=== PATIENT | female | born 1935 | race Hispanic/Latino ===

== ENCOUNTER 2016-10-02 10:52 | Inpatient (IN) | payer OTHER ==
[~2016-10-02] VITALS: Ht 157.5 cm; Wt 104.0 kg
[~2016-10-02 10:52] MED LIST: AMITRIPTYLINE10 MG PO; DIOVAN320 MG PO; DOCUSATE SODIU100 M2 ORAL; DONEPEZIL HCL5 MG ORAL; HYDROCHLOROTHIA25 MG ORAL; LEVOTHYROXINE75 MCG ORAL; LORATADINE10 M1 PO; METOPROLOL SUCC50 MG ORAL; NAPROXEN250 MG PO; NEURONTIN300 MG PO; NORCO1 EA ORAL; NOVOLOG100 UNIT/3 SUBQ; NOVOLOG100 UNIT/4 SQ; NOVOLOG100 UNIT/5; OMEPRAZOLE20 M2 ORAL; PRAVASTATIN SOD20 M1 ORAL; QUETIAPINE FUM100 MG ORAL; RANITIDINE HCL150 MG PO; SERTRALINE HCL50 MG ORAL; SYNTHROID25 MCG PO; TRAZODONE HCL150 MG ORAL; XOPENEX0.63 MG/3 IH; XOPENEX1.25 MG/3 HHN
--- NOTE | 2016-10-02 11:55 | Diagnostic Imaging Report ---
Indication: Dyspnea Comparison: 05/13/15 A single view chest radiograph was obtained. Findings: There is enlargement of the cardiac silhouette with pulmonary vascular redistribution and prominence, hazy vessel margins and the suggestion of interstitial edema consistent with CHF. There is no interval change. Bones are osteopenic. Impression: Congestive heart failure.
--- NOTE | 2016-10-02 12:19 | Diagnostic Imaging Report ---
Indication: Postop. Altered mental status Technique: Contiguous 5 mm thick transaxial imaging of the head obtained in a Siemens Sensation [address] scanner. Soft tissue and bone windows generated. Total Dose length Product (DLP): [address] Dose Index Volume (CTDIvol): 70.38 mGy Comparison: 05/13/15 Findings: There is moderate prominence of the ventricles, basal cisterns, and cerebral sulci consistent with atrophy. Moderate, nonspecific, white matter hypoattenuation is noted throughout the brain consistent with chronic small vessel disease. There is no midline shift, edema, acute hemorrhage, mass effect, or abnormal extra-axial fluid collections. Bones and extra osseous soft tissues are unremarkable. Impression: No acute intracranial bleed, mass effect or edema. Moderate atrophy of the brain. Evidence of chronic small vessel disease involving white matter tracts. Critical value communication. Findings were discussed via telephone with Dr. Billings in the emergency department at 12:12, 10/02/[address] scanner at [facility] is accredited by the [employer] and the scans are performed using protocols designed to limit radiation exposure to as low as reasonably achievable to attain images of sufficient resolution adequate for diagnostic evaluation.
[2016-10-02 12:47] LABS: TROPONIN I < 0.30 ng/mL (<=0.30)
[2016-10-02 12:50] LABS: ALANINE AMINOTRANSFERASE 10 U/L (3-33); ALBUMIN/GLOBULIN RATIO 1.1 (1.0-2.7); ANION GAP 19 (5-15); ASPARTATE AMINO TRANSFERASE 20 U/L (5-40); CALCIUM 9.7 mg/dL (8.6-10.2); CARBON DIOXIDE 27 mEQ/L (20-30); CHLORIDE 85 mEQ/L (98-107); CREATININE 1.5 mg/dL (0.5-0.9); HEMOLYSIS 33; LIPASE 14 U/L (< 60); POTASSIUM 3.8 mEQ/L (3.4-4.9); SODIUM 131 mEQ/L (135-145); TOTAL PROTEIN 7.3 g/dL (6.6-8.7)
[2016-10-02 12:57] LABS: MEAN CORPUSCULAR HEMOGLOBIN 30.6 PG (27.0-31.0); MEAN CORPUSCULAR HGB CONC 33.4 G/DL (32.0-36.0); MEAN CORPUSCULAR VOLUME 92 FL (80-99); MEAN PLATELET VOLUME 7.6 FL (6.5-10.1); PLATELET COUNT 195 K/UL (150-450); RED BLOOD COUNT 4.78 M/UL (4.20-5.40); RED CELL DISTRIBUTION WIDTH 11.5 % (11.6-14.8); WHITE BLOOD COUNT 18.7 K/UL (4.8-10.8)
[2016-10-02 12:58] VITALS: BP 109/45
[2016-10-02 12:58] LABS: APPEARANCE,URINE SLIGHTLY CLOUDY; KETONES,URINE NEGATIVE (NEGATIVE); LEUKOCYTE ESTERASE ,URINE 1+ (NEGATIVE); NITRITE,URINE NEGATIVE (NEGATIVE); PH,URINE 5 (4.5-8.0); PROTEIN,URINE 1+ (NEGATIVE); UROBILINOGEN,URINE NORMAL MG/DL (0.0-1.0)
[2016-10-02 13:00] LABS: CKMB 2.6 ng/mL (< 3.8)
[2016-10-02] MEDS ORDERED: cefTRIAXone 1 GM in NS 55 ML IVPB ONE (13:15)
[2016-10-02] MEDS ORDERED: Azithromycin 500 MG in NS 275 ML IV ONE (13:15)
--- NOTE | 2016-10-02 13:18 | Emergency Room Report ---
History of Present Illness General Chief Complaint: Generalized Weakness Source: Patient, Family Member, EMS Present Illness HPI 81 YOF BIBEMS for weakness and low blood pressure. Per daughter, went to home to feed parents, mother slow to get out of bed. Checked blood sugar, was normal. But bilateral arm BP was SBP 70-75. EMS confirmed low BP, but improved en route to normotension. No recent fever/chills, chest pain, SOB, abd pain, cough, urinary complaints. PMHx with DM, HTN. Allergies: Coded Allergies: No Known Allergies (Verified , 05/26/11) Patient History Past Medical History: DM, HTN Past Surgical History: none Pertinent Family History: none Social History: Denies: alcohol use, drug use, smoking Now: No Immunizations: UTD Reviewed Nursing Documentation: PMH: Agreed, PSxH: Agreed Nursing Documentation-PMH Past Medical History: No History, Except For Hx Cardiac Problems: Yes - cholesterol Hx Hypertension: Yes Hx COPD: Yes Hx Diabetes: Yes Hx Neurological Problems: Yes - mild dementia Review of Systems All Other Systems: negative except mentioned in HPI Physical Exam Vital Signs Date Time Temp Pulse Resp B/P Pulse Ox O2 Delivery O2 Flow Rate FiO2 10/02/16 10:47 99.1 75 18 110/58 98 Room Air 10/02/16 12:58 2.0 Sp02 EP Interpretation: reviewed, normal General Appearance: normal inspection, well appearing, no apparent distress, alert, GCS 15, non-toxic, obese Head: normocephalic, atraumatic Eyes: bilateral eye EOMI, bilateral eye PERRL ENT: normal ENT inspection, hearing grossly normal, normal voice Neck: normal inspection, full range of motion, supple, no bony tend Respiratory: normal inspection, lungs clear, normal breath sounds, no rhonchi, no respiratory distress, no retraction, no accessory muscle use, no wheezing, crackles, speaking full sentences Cardiovascular #1: regular rate, rhythm, no edema Gastrointestinal: normal inspection, normal bowel sounds, non tender, soft, no guarding, no hernia Genitourinary: no CVA tenderness Musculoskeletal: normal inspection, back normal, normal range of motion, Leah' s Sign negative Neurologic: normal inspection, alert, oriented x3, responsive, paying teller III-XII nml as tested, motor strength/tone normal, speech normal Psychiatric: normal inspection, judgement/insight normal, mood/affect normal Skin: normal inspection, normal color, no rash Medical Decision Making Medicare Attestation Franci Araiza MD hereby attest that the medical record entry for date of service, 06/17/16 accurately reflects signatures/notations that I made in my capacity as MD when I treated/diagnosed the above listed Medicare beneficiary. I attest that this information is true, accurate and complete to the best of my knowledge. I understand that any falsification, omission, or concealment of material fact may subject me to administrative, civil, or criminal liability. This patient warrants hospital admission for extreme of age and has a condition that cannot be treated as outpatient. Diagnostic Impression: Primary Impression: Episode of generalized weakness Additional Impressions: CHF (congestive heart failure) Qualified Codes: I50.9 - Heart failure, unspecified Pneumonia Qualified Codes: J18.9 - Pneumonia, unspecified organism Opiate overdose Qualified Codes: T40.601A - Poisoning by unspecified narcotics, accidental ( unintentional), initial encounter ER Course Labs: ERIN. Leuks 18k. Troponin 0. CXR with bilateral pulm congestion vs PNA No history of CHF No acute respiratory distress. Utox positive for opiates. Family now endorses patient on hospice. Hypotension , episode of AMS this morning likely related to possible accidental opiate overdose. CHF - Given IV lasix ?PNA - Cef/azithro given - Blood Cx pending Endorsed to Dr Martinez for tele admission at 117pm EKG Diagnostic Results Rate: normal Rhythm: NSR ST Segments: no acute changes ASA given to the pt in ED: No Rhythm Strip Diag. Results EP Interpretation: yes Rate: 74 Rhythm: NSR, no PVC's, no ectopy Chest X-Ray Diagnostic Results EP Interpretation: Yes Findings: no pneumothorax, other - Pulm congestion vs infiltrate bilaterally Number of Views: 1 Last Vital Signs Date Time Temp Pulse Resp B/P Pulse Ox O2 Delivery O2 Flow Rate FiO2 10/02/16 12:58 72 13 109/45 96 Nasal Cannula 2.0 10/02/16 10:47 99.1 Status: improved Disposition: ADMITTED INPATIENT Condition: Serious Referrals: [facility],REFERRING (PCP) FRANCI ARAIZA M.D. Oct 02, 2016 13:18
[2016-10-02 13:22] LABS: BACTERIA,URINE FEW /HPF; SQUAMOUS EPITHELIAL CELL,UR FEW /LPF (NONE/OCC)
[2016-10-02 13:39] LABS: BAND NEUTROPHILS % (MANUAL) 3 % (0-8); BASOPHILS % (MANUAL) 0 % (0-2); EOSINOPHILS % (MANUAL) 0 % (0-3); LYMPHOCYTES % (MANUAL) 6 % (20-45); NEUTROPHILS % (MANUAL) 84 % (45-75); PLATELET ESTIMATE ADEQUATE; PLATELET MORPHOLOGY NORMAL; TOTAL CELLS COUNTED 100
[2016-10-02] MEDS ORDERED: ACETAMINOPHEN325 M3 PO (14:06)
[2016-10-02] MEDS ORDERED: SENNA LAX8.6 MG PO (14:06)
[2016-10-02] MEDS ORDERED: ASPIRIN81 MG ORAL (14:07)
[2016-10-02] MEDS ORDERED: ASPIR 8181 MG ORAL (14:07)
[2016-10-02 14:09] VITALS: BP 105/50
[2016-10-02] MEDS ORDERED: NAMENDA5 MG ORAL (14:31)
[2016-10-02] MEDS ORDERED: Azithromycin Inj IV ONE (14:34)
[2016-10-02] MEDS ORDERED: GLIPIZIDE5 MG ORAL (14:36)
[2016-10-02] MEDS ORDERED: LANTUS SOL100 UNIT/1 SUBQ (14:40)
[2016-10-02] MEDS ORDERED: HYOSCYAMINE0.125 MG PO (14:43)
[2016-10-02] MEDS ORDERED: DULCOLAX10 MG RC (14:45)
[2016-10-02] MEDS ORDERED: ACETAMINOPHEN120 MG RECTAL (14:48)
[2016-10-02] MEDS ORDERED: DONEPEZIL HCL10 MG ORAL (14:57)
[2016-10-02] MEDS ORDERED: TRAZODONE HCL100 MG ORAL (14:57)
[2016-10-02] MEDS ORDERED: FAMOTIDINE20 MG ORAL (15:08)
[2016-10-02] MEDS ORDERED: ATORVASTATIN CA40 MG ORAL (15:13)
[2016-10-02] MEDS ORDERED: VITAMIN D1000 UNI1 ORAL (15:14)
[2016-10-02 15:30] VITALS: BP 94/51
[2016-10-02 15:57] VITALS: BP 103/62
[2016-10-02] MEDS ORDERED: Miralax 17gm pkt ORAL PRN (16:00)
[2016-10-02] MEDS ORDERED: Mylanta II UD 30ml ORAL PRN (16:00)
[2016-10-02] MEDS ORDERED: DuoNeb 0.5-3(2.5)mg/3ml neb HHN PRN (16:00)
[2016-10-02] MEDS ORDERED: Nitroglycerin Subl 0.4mg tab (Bottle Of 25) SL PRN (16:00)
[2016-10-02] MEDS ORDERED: Promethazine/Codeine 5ml UD ORAL PRN (16:00)
[2016-10-02 17:17] VITALS: BP 150/91
[2016-10-02] MEDS: NovoLOG Insulin Flexpen SUBQ SCH ×2 (17:59→21:00)
[2016-10-02] MEDS ORDERED: Vancomycin 1250mg/D5W 275ml IVPB ONE ×2 (18:00)
[2016-10-02 20:00] VITALS: BP 120/67
[2016-10-02] MEDS: Cefepime HCl 1 GM in D5W 55 ML IV SCH (22:16)
[2016-10-02] MEDS: Heparin 5000 units/ml inj SUBQ SCH (22:17)
--- NOTE | 2016-10-02 22:49 | History and Physical ---
History of Present Illness General Date patient seen: Oct 02, 2016 Reason for Hospitalization: Generalized Weakness Present Illness HPI 81 year old female with PMHx of DM, HTN brought in by paramedics for weakness and low blood pressure. She slow to get out of bed and her But bilateral arm BP was SBP 70-75. EMS confirmed low BP, but improved en route to normotension. Pt has episodes of cough and thinks that she had yellow phlegm. Allergies: Coded Allergies: No Known Allergies (Verified , 05/26/11) Medication History Scheduled Aspirin* (Aspir 81*), 81 MG ORAL DAILY, (Reported) Atorvastatin Calcium* (Atorvastatin Calcium*), 40 MG ORAL BEDTIME, (Reported) Cholecalciferol (Vitamin D3)* (Vitamin D*), 1,000 UNIT ORAL DAILY, (Reported) Docusate Sodium (Docusate Sodium), 100 MG ORAL TWICE A DAY, (Reported) Donepezil Hcl* (Donepezil Hcl*), 10 MG ORAL QHS, (Reported) Famotidine (Famotidine), 20 MG ORAL TWICE A DAY, (Reported) Gabapentin (Neurontin), 300 MG PO QHS, (Reported) Glipizide* (Glipizide*), 2.5 MG ORAL BIDAC, (Reported) Hydrochlorothiazide* (Hydrochlorothiazide*), 25 MG ORAL DAILY, (Reported) Insulin Glargine (Lantus), 40 UNITS SUBQ BEFORE BREAKFAST, (Reported) Levothyroxine Sodium* (Levothyroxine Sodium*), 75 MCG ORAL DAILY, (Reported) Memantine Hcl* (Namenda*), 5 MG ORAL DAILY, (Reported) Metoprolol Succinate* (Metoprolol Succinate*), 50 MG ORAL DAILY, (Reported) Sennosides (Senna Lax), 8.6 MG PO BID, (Reported) Sertraline Hcl* (Zoloft*), 150 MG ORAL DAILY, (Reported) Valsartan (Diovan), 160 MG PO DAILY, (Reported) Scheduled PRN Acetaminophen (Acetaminophen), 325 MG PO BID PRN for For Headache, (Reported) Acetaminophen* (Tylenol*), 650 MG RECTAL Q4H PRN for FEVER/TEMP>100F, (Reported) Bisacodyl (Dulcolax), 10 MG RC Q72H PRN for IF NO BOWEL MOVEMENT, (Reported) Hyoscyamine Sulfate (Hyoscyamine Sulfate), 0.125 MG PO Q4HR PRN for EXCESSIVE SECRETIONS, (Reported) Discontinued Medications Amitriptyline Hcl* (Elavil*), 10 MG PO QHS, (Reported) Discontinued Reason: Therapy completed Donepezil Hcl* (Donepezil Hcl*), 5 MG ORAL HS, (Reported) Discontinued Reason: Prescription changed Hydrocodone/Acetaminophen 5-325* ([place] 5-325*), 0.5 TAB ORAL Q6H PRN for For Pain Discontinued Reason: Therapy completed Insulin Aspart (Novolog), 65 UNIT SQ DAILY, (Reported) Discontinued Reason: Pt stopped taking med Insulin Aspart (Novolog), 40 HS, (Reported) Discontinued Reason: Pt stopped taking med Insulin Aspart* (Novolog*), 0 SUBQ AC, (Reported) Discontinued Reason: Pt stopped taking med Levalbuterol Hcl (Xopenex*), 0.63 MG IH, (Reported) Discontinued Reason: Pt stopped taking med Levalbuterol Hcl (Xopenex*), 1.25 MG HHN DAILY, (Reported) Discontinued Reason: Pt stopped taking med Loratadine (Loratadine), 10 MG PO, (Reported) Discontinued Reason: Therapy completed Naproxen* (Naprosyn*), 500 MG PO BID, (Reported) Discontinued Reason: Pt stopped taking med Omeprazole (Omeprazole), 20 MG ORAL DAILY, (Reported) Discontinued Reason: Pt stopped taking med Pravastatin Sod* (Pravastatin Sod*), 20 MG ORAL BEDTIME, (Reported) Discontinued Reason: Medication dose changed Quetiapine Fumarate* (Seroquel*), 100 MG ORAL HS, (Reported) Discontinued Reason: Pt stopped taking med Ranitidine Hcl* (Zantac*), 150 MG PO BID, (Reported) Discontinued Reason: Medication dose changed Trazodone Hcl* (Desyrel*), 100 MG ORAL BEDTIME, (Reported) Discontinued Reason: Pt stopped taking med Trazodone* (Trazodone*), 100 MG ORAL BEDTIME, (Reported) Discontinued Reason: Prescription changed Patient History Healthcare decision maker Bucky Gutierrez Resuscitation status Full Code Advanced Directive on File Past Medical/Surgical History Past Medical/Surgical History: (1) Dementia (2) Diabetes mellitus Review of Systems All Other Systems: negative except mentioned in HPI Physical Exam General Appearance: WD/WN Lines, tubes and drains: peripheral, central line HEENT: normocephalic Neck: non-tender, normal alignment Respiratory/Chest: chest wall non-tender, lungs clear Breasts: no masses Cardiovascular/Chest: normal peripheral pulses Abdomen: normal bowel sounds Genitourinary/Rectal: normal genital exam Extremities: normal range of motion, non-tender Skin Exam: normal pigmentation Last 24 Hour Vital Signs Date Time Temp Pulse Resp B/P Pulse Ox O2 Delivery O2 Flow Rate FiO2 10/02/16 20:00 96.8 69 18 120/67 Nasal Cannula 2.0 97 10/02/16 17:17 97.7 80 19 150/91 99 Room Air 10/02/16 16:21 98.0 78 15 111/57 98 Nasal Cannula 2.0 10/02/16 15:57 98.0 78 15 103/62 98 Nasal Cannula 2.0 10/02/16 15:30 98.0 77 16 94/51 99 Nasal Cannula 2.0 10/02/16 14:09 98.3 77 15 105/50 95 Nasal Cannula 2.0 10/02/16 12:58 72 13 109/45 96 Nasal Cannula 2.0 10/02/16 10:47 99.1 75 18 110/58 98 Room Air Laboratory Tests Test 10/02/16 11:31 10/02/16 12:28 White Blood Count 18.7 K/UL (4.8-10.8) H Red Blood Count 4.78 M/UL (4.20-5.40) Hemoglobin 14.6 G/DL (12.0-16.0) Hematocrit 43.7 % (37.0-47.0) Mean Corpuscular Volume 92 FL (80-99) Mean Corpuscular Hemoglobin 30.6 PG (27.0-31.0) Mean Corpuscular Hemoglobin Concent 33.4 G/DL (32.0-36.0) Red Cell Distribution Width 11.5 % (11.6-14.8) L Platelet Count 195 K/UL (150-450) Mean Platelet Volume 7.6 FL (6.5-10.1) Neutrophils (%) (Auto) % (45.0-75.0) Lymphocytes (%) (Auto) % (20.0-45.0) Monocytes (%) (Auto) % (1.0-10.0) Eosinophils (%) (Auto) % (0.0-3.0) Basophils (%) (Auto) % (0.0-2.0) Differential Total Cells Counted 100 Neutrophils % (Manual) 84 % (45-75) H Lymphocytes % (Manual) 6 % (20-45) L Monocytes % (Manual) 7 % (1-10) Eosinophils % (Manual) 0 % (0-3) Basophils % (Manual) 0 % (0-2) Band Neutrophils 3 % (0-8) Platelet Estimate Adequate Platelet Morphology Normal Red Blood Cell Morphology Normal Sodium Level 131 mEQ/L (135-145) L Potassium Level 3.8 mEQ/L (3.4-4.9) Chloride Level 85 mEQ/L (98-107) L Carbon Dioxide Level 27 mEQ/L (20-30) Anion Gap 19 (5-15) H Blood Urea Nitrogen 24 mg/dL (7-23) H Creatinine 1.5 mg/dL (0.5-0.9) H Estimat Glomerular Filtration Rate mL/min (>60) Glucose Level 231 mg/dL (74-106) H Calcium Level 9.7 mg/dL (8.6-10.2) Total Bilirubin 0.8 mg/dL (0.0-1.2) Aspartate Amino Transf (AST/SGOT) 20 U/L (5-40) Alanine Aminotransferase (ALT/SGPT) 10 U/L (3-33) Alkaline Phosphatase 57 U/L (35-104) Total Creatine Kinase 127 U/L (26-140) Creatine Kinase MB 2.6 ng/mL (< 3.8) Creatine Kinase MB Relative Index 2.0 Troponin I < 0.30 ng/mL (<=0.30) Total Protein 7.3 g/dL (6.6-8.7) Albumin 3.9 g/dL (3.5-5.2) Globulin 3.4 g/dL Albumin/Globulin Ratio 1.1 (1.0-2.7) Lipase 14 U/L (< 60) Urine Color Yellow Urine Appearance Slightly cloudy Urine pH 5 (4.5-8.0) Urine Specific [place] 1.015 (1.005-1.035) Urine Protein 1+ (NEGATIVE) H Urine Glucose (UA) Negative (NEGATIVE) Urine Ketones Negative (NEGATIVE) Urine Occult Blood Negative (NEGATIVE) Urine Nitrite Negative (NEGATIVE) Urine Bilirubin Negative (NEGATIVE) Urine Urobilinogen Normal MG/DL (0.0-1.0) Urine Leukocyte Esterase 1+ (NEGATIVE) H Urine RBC 2-4 /HPF (0 - 2) H Urine WBC 2-4 /HPF (0 - 2) Urine Squamous Epithelial Cells Few /LPF (NONE/OCC) Urine Bacteria Few /HPF (NONE) Urine Opiates Screen Positive (NEGATIVE) H Urine Barbiturates Screen Negative (NEGATIVE) Phencyclidine (PCP) Screen Negative (NEGATIVE) Urine Amphetamines Screen Negative (NEGATIVE) Urine Benzodiazepines Screen Negative (NEGATIVE) Urine Cocaine Screen Negative (NEGATIVE) Urine Marijuana (THC) Screen Negative (NEGATIVE) Height (Feet): 5 Height (Inches): 2.00 Weight (Pounds): 198 Medications Current Medications Medications (Trade) Dose Ordered Sig/Dean Route PRN Reason Start Time Stop Time Status Last Admin Dose Admin Acetaminophen (Tylenol) 650 mg Q4H PRN ORAL fever 10/02/16 16:00 11/01/16 15:59 Al Hydroxide/Mg Hydroxide (Mylanta II) 30 ml Q6H PRN ORAL dyspepsia 10/02/16 16:00 11/01/16 15:59 Albuterol/ Ipratropium 3 ml 3 ml EVERY 4 HOURS PRN HHN Shortness of Breath 10/02/16 16:00 10/07/16 15:59 Cefepime HCl/ Dextrose (Maxipime/D5W) 55 ml @ 110 mls/hr Q24H IV 10/02/16 21:00 10/09/16 20:59 10/02/16 22:16 Dextrose STAT PRN IV Hypoglycemia 10/02/16 16:00 11/01/16 15:59 Heparin Sodium (Porcine) (Heparin 5000 units/ml) 5,000 units EVERY 12 HOURS SUBQ 10/02/16 21:00 11/01/16 20:59 10/02/16 22:17 Insulin Aspart (NovoLOG) BEFORE MEALS AND HS SUBQ 10/02/16 16:30 11/01/16 16:29 10/02/16 17:59 Nitroglycerin (Ntg) 0.4 mg Q5M PRN SL Prn Chest Pain 10/02/16 16:00 11/01/16 15:59 Ondansetron HCl (Zofran) 4 mg Q6H PRN IVP Nausea & Vomiting 10/02/16 16:00 11/01/16 15:59 Polyethylene Glycol (Miralax) 17 gm DAILYPRN PRN ORAL Constipation 10/02/16 16:00 11/01/16 15:59 Promethazine HCl/ Codeine (Phenergan with Codeine) 5 ml Q4H PRN ORAL For Cough 10/02/16 16:00 11/01/16 15:59 Temazepam (Restoril) 15 mg HSPRN PRN ORAL Insomnia 10/02/16 16:00 10/09/16 15:59 Vancomycin HCl (Vanco rx to dose) 1 ea DAILY PRN MISC Per rx protocol 10/02/16 16:00 11/01/16 15:59 Vancomycin HCl/ Dextrose (Vancomycin/D5W) 275 ml @ 183.708 mls/hr Q24H IVPB 10/03/16 18:00 10/08/16 17:59 Assessment/Plan Problem List: (1) Sepsis ICD Codes: A41.9 - Sepsis, unspecified organism SNOMED: 71664178 (2) Pneumonia ICD Codes: J18.9 - Pneumonia, unspecified organism SNOMED: 280729975 Qualifiers: Qualified Codes: J18.9 - Pneumonia, unspecified organism (3) Episode of generalized weakness ICD Codes: R53.1 - Weakness SNOMED: 62017859 (4) Dementia (5) Diabetes mellitus Assessment/Plan IV antibiotics Respiratory Rx check sputum echo check wbc check cxr in a few days ROB FORTE Oct 02, 2016 22:49
[2016-10-03] VITALS: BP 142/60
[2016-10-03 04:21] VITALS: BP 124/60
[2016-10-03 06:09] LABS: BASOPHILS % (AUTO) 0.7 % (0.0-2.0); EOSINOPHILS % (AUTO) 6.5 % (0.0-3.0); LYMPHOCYTES % (AUTO) 13.2 % (20.0-45.0); MEAN CORPUSCULAR HEMOGLOBIN 30.3 PG (27.0-31.0); MEAN CORPUSCULAR HGB CONC 33.4 G/DL (32.0-36.0); MEAN CORPUSCULAR VOLUME 91 FL (80-99); MEAN PLATELET VOLUME 8.4 FL (6.5-10.1); NEUTROPHILS % (AUTO) 72.7 % (45.0-75.0); PLATELET COUNT 216 K/UL (150-450); RED BLOOD COUNT 4.48 M/UL (4.20-5.40); RED CELL DISTRIBUTION WIDTH 11.3 % (11.6-14.8); WHITE BLOOD COUNT 14.2 K/UL (4.8-10.8)
[2016-10-03] MEDS: NovoLOG Insulin Flexpen SUBQ SCH ×4 (06:30→20:03)
[2016-10-03 06:57] LABS: ANION GAP 14 (5-15); CALCIUM 9.2 mg/dL (8.6-10.2); CARBON DIOXIDE 32 mEQ/L (20-30); CHLORIDE 89 mEQ/L (98-107); CREATININE 1.3 mg/dL (0.5-0.9); HEMOLYSIS 25; PHOSPHORUS 3.3 mg/dL (2.5-4.8); SODIUM 135 mEQ/L (135-145)
[2016-10-03 07:59] VITALS: BP 103/55
[2016-10-03] MEDS: Heparin 5000 units/ml inj SUBQ SCH ×2 (08:49→20:27)
--- NOTE | 2016-10-03 09:25 | Consultation ---
Consult Note Consult Note ID CONSULT: Gila# [id number] Assessment/Plan ASSESSMENT: 81 y/o female with: // Leukocytosis r/o infection - mild, improved, afebrile. Cx pending - UA(-), CXR: CHF // Negative C.difficile // Hypotension - improved // Generalized weakness - CT Head: No acute intracranial bleed, mass effect or edema. Moderate atrophy of the brain. Evidence of chronic small vessel disease involving white matter tracts // LUISA - improved // DM2 // Dementia // NKDA // Full Code PLAN: - continue empiric IV vancomycin, cefepime d# 1 for now. Limit soon if no active infection identified - f/u cultures - monitor CBC, temperatures - monitor BMP - monitor CXR Thanks! Will follow RYAN JEFFRIES Oct 03, 2016 09:25
--- NOTE | 2016-10-03 11:18 | Consultation ---
DATE OF CONSULTATION: 10/03/2016 INFECTIOUS DISEASE CONSULTATION CONSULTING PHYSICIAN: Marino Diallo M.D. REQUESTING PHYSICIAN: Odette Martinez M.D. REASON FOR CONSULTATION: Leukocytosis. HISTORY OF PRESENT ILLNESS: This is an 81-year-old demented diabetic female admitted on 10/02/2016 with hypotension and generalized weakness. A CT of the head shows no acute findings. Associated leukocytosis of 18.7 with left shift and decreased to 14.2 this morning. The urinalysis is benign and chest x-ray is consistent with CHF. C. difficile toxin is negative. Blood cultures and urine cultures are pending. She has been started on empiric IV vancomycin and cefepime and ID now consulted to assist in management. PAST MEDICAL HISTORY: 1. Diabetes. 2. Hypertension. 3. Hyperlipidemia. 4. Dementia. 5. Fibroid uterus. PAST SURGICAL HISTORY: 1. Cholecystectomy. MEDICATIONS: 1. Vancomycin. 2. Cefepime. 3. Subcutaneous heparin. ALLERGIES: No known drug allergies. SOCIAL HISTORY: No active tobacco, alcohol, or illicit drug abuse. She has family involved in her care. FAMILY HISTORY: Unknown. REVIEW OF SYSTEMS: As per history of present illness. Ten systems reviewed. All pertinent positives and negatives noted. PHYSICAL EXAMINATION: GENERAL: No apparent distress. Nontoxic appearing. VITAL SIGNS: Maximum temperature 99.1 degrees, blood pressure 103/55, heart rate in the 70s, respiratory rate 18, and saturating 98% on two liters nasal cannula. CARDIOVASCULAR: Regular rate and rhythm. No murmurs. PULMONARY: Clear to auscultation bilaterally. ABDOMEN: Bowel sounds present. Soft, nondistended, and nontender. EXTREMITIES: No bilateral lower extremity edema. SKIN: No rash. LABORATORY DATA: White blood cell count 14.3, decreased from 18.7, no left shift, hemoglobin 13.6, and platelets 216,000. Sodium 135, potassium 3, chloride 89, bicarbonate 32, BUN 27, and creatinine 1.3, decreased from 1.5. Troponin negative x1. Liver function tests and lipase within normal limits. Urinalysis negative. Urine drug screen positive for opiates. MICROBIOLOGY: 1. On 10/02/2016, C. difficile toxin negative. 2. On 10/02/2016, blood culture pending. 3. On 10/02/2016, sputum culture pending. IMAGIN. On 10/02/2016, CT of the head, no acute findings. Moderate atrophy. 2. On 10/02/2016, chest x-ray consistent with CHF. ASSESSMENT: 1. Leukocytosis, rule out infection. Leukocytosis is mild and improved today and the patient is afebrile. Cultures are pending. Urinalysis is benign. Chest x-ray showed no pneumonia. C. difficile toxin negative. 2. Hypotension, improved. 3. Generalized weakness. CT of the head showing no acute findings and moderate atrophy. 4. Acute renal insufficiency, improved. 5. Diabetes type 2. 6. Dementia. 7. No known drug allergies. 8. Full Code. PLAN: 1. Continue empiric IV vancomycin and cefepime day #1 for now. Maintenance if no acute infection identified. 2. Follow up cultures. 3. Monitor CBC and temperatures. 4. Monitor BMP. 5. Monitor chest x-ray. Thank you. We will follow. Marino Diallo M.D. DR: Tamiko JOB#: [id number] CC: Odette Martinez M.D.; Fax#: [phone] Negron M.D; Fax#: [phone]
[2016-10-03 11:29] VITALS: BP 107/74
--- NOTE | 2016-10-03 15:00 | Pulmonology Progress Note ---
Assessment/Plan Problems: (1) Sepsis (2) Pneumonia (3) Episode of generalized weakness (4) Dementia (5) Diabetes mellitus Assessment/Plan improving wbc decreasing sliding scale check echo ID consult appreciated awaiting cardio evaluation Subjective Interval Events: slightly better Respiratory: Reports: shortness of breath, sputum Allergies: Coded Allergies: No Known Allergies (Verified , 05/26/11) Objective Last 24 Hour Vital Signs Date Time Temp Pulse Resp B/P Pulse Ox O2 Delivery O2 Flow Rate FiO2 10/03/16 11:58 79 18 95 Nasal Cannula 2.0 28 10/03/16 11:48 82 18 97 Nasal Cannula 2.0 10/03/16 11:29 98.3 81 18 107/74 99 Nasal Cannula 2.0 10/03/16 10:46 98.1 10/03/16 07:59 98.1 79 18 103/55 98 Nasal Cannula 2.0 10/03/16 07:44 81 10/03/16 07:37 Nasal Cannula 2.0 10/03/16 07:35 Nasal Cannula 2.0 10/03/16 07:34 78 20 Nasal Cannula 2.0 10/03/16 04:21 98.3 81 18 124/60 93 Nasal Cannula 2.0 10/03/16 04:00 78 10/03/16 03:48 81 18 94 Nasal Cannula 2.0 28 10/03/16 03:48 Nasal Cannula 2.0 28 10/03/16 03:48 Nasal Cannula 10/03/16 03:46 81 18 Nasal Cannula 2.0 28 10/03/16 00:00 81 10/03/16 00:00 98.4 80 19 142/60 94 Nasal Cannula 2.0 10/02/16 20:00 76 10/02/16 20:00 96.8 69 18 120/67 Nasal Cannula 2.0 97 10/02/16 17:17 97.7 80 19 150/91 99 Room Air 10/02/16 16:55 73 10/02/16 16:21 98.0 78 15 111/57 98 Nasal Cannula 2.0 10/02/16 15:57 98.0 78 15 103/62 98 Nasal Cannula 2.0 10/02/16 15:30 98.0 77 16 94/51 99 Nasal Cannula 2.0 Intake and Output 10/02/16 10/03/16 19:00 07:00 Intake Total 1050 ml 55 ml Output Total 1800 ml Balance 1050 ml -1745 ml IV Total 1050 ml 55 ml Output Urine Total 1800 ml # Voids 1 # Bowel Movements 1 General Appearance: WD/WN HEENT: normocephalic, atraumatic Respiratory/Chest: chest wall non-tender, lungs clear Cardiovascular: normal peripheral pulses, normal rate Abdomen: normal bowel sounds, soft, non tender Extremities: no cyanosis Neurologic/Psychiatric: silo painter II-XII grossly normal, no motor/sensory deficits Lymphatic: no neck adenopathy Microbiology Date/Time Source Procedure Growth Status 10/02/16 17:00 Stool Clostridium difficile Toxin Assay - Final Complete Laboratory Tests 10/03/16 04:45: White Blood Count 14.2H, Red Blood Count 4.48, Hemoglobin 13.6, Hematocrit 40.6 , Mean Corpuscular Volume 91, Mean Corpuscular Hemoglobin 30.3, Mean Corpuscular Hemoglobin Concent 33.4, Red Cell Distribution Width 11.3L, Platelet Count 216, Mean Platelet Volume 8.4, Neutrophils (%) (Auto) 72.7, Lymphocytes (%) (Auto) 13.2L, Monocytes (%) (Auto) 7.0, Eosinophils (%) (Auto) 6.5H, Basophils (%) (Auto) 0.7, Sodium Level 135, Potassium Level 3.0L, Chloride Level 89L, Carbon Dioxide Level 32H, Anion Gap 14, Blood Urea Nitrogen 22, Creatinine 1.3H, Estimat Glomerular Filtration Rate , Glucose Level 215H, Calcium Level 9.2, Phosphorus Level 3.3, Albumin 3.4L Current Medications Medications (Trade) Dose Ordered Sig/Dean Route PRN Reason Start Time Stop Time Status Last Admin Dose Admin Acetaminophen (Tylenol) 650 mg Q4H PRN ORAL Fever/Headache/Mild Pain 10/03/16 00:00 11/02/16 00:00 10/03/16 09:47 Al Hydroxide/Mg Hydroxide (Mylanta II) 30 ml Q6H PRN ORAL dyspepsia 10/02/16 16:00 11/01/16 15:59 Albuterol/ Ipratropium 3 ml 3 ml EVERY 4 HOURS PRN HHN Shortness of Breath 10/02/16 16:00 10/07/16 15:59 Cefepime HCl/ Dextrose (Maxipime/D5W) 55 ml @ 110 mls/hr Q24H IV 10/02/16 21:00 10/09/16 20:59 10/02/16 22:16 Dextrose STAT PRN IV Hypoglycemia 10/02/16 16:00 11/01/16 15:59 Heparin Sodium (Porcine) (Heparin 5000 units/ml) 5,000 units EVERY 12 HOURS SUBQ 10/02/16 21:00 11/01/16 20:59 10/03/16 08:49 Insulin Aspart (NovoLOG) BEFORE MEALS AND HS SUBQ 10/02/16 16:30 11/01/16 16:29 10/03/16 12:33 Nitroglycerin (Ntg) 0.4 mg Q5M PRN SL Prn Chest Pain 10/02/16 16:00 11/01/16 15:59 Ondansetron HCl (Zofran) 4 mg Q6H PRN IVP Nausea & Vomiting 10/02/16 16:00 11/01/16 15:59 Polyethylene Glycol (Miralax) 17 gm DAILYPRN PRN ORAL Constipation 10/02/16 16:00 11/01/16 15:59 Promethazine HCl/ Codeine (Phenergan with Codeine) 5 ml Q4H PRN ORAL For Cough 10/02/16 16:00 11/01/16 15:59 Temazepam (Restoril) 15 mg HSPRN PRN ORAL Insomnia 10/02/16 16:00 10/09/16 15:59 Vancomycin HCl (Vanco rx to dose) 1 ea DAILY PRN MISC Per rx protocol 10/02/16 16:00 11/01/16 15:59 Vancomycin HCl/ Dextrose (Vancomycin/D5W) 275 ml @ 183.708 mls/hr Q24H IVPB 10/03/16 18:00 10/08/16 17:59 ROB FORTE Oct 03, 2016 15:00
[2016-10-03 16:00] VITALS: BP 116/72
--- NOTE | 2016-10-03 17:21 | Cardiology Progress Note ---
Assessment/Plan Assessment/Plan hypotension volume responsive leukocytosis s obesity renal insuf electrolyte abn doubt chf s indicated by cxr ivf orthostatic vitals serial enzyme ekg echo [id number] Objective Last 24 Hour Vital Signs Date Time Temp Pulse Resp B/P Pulse Ox O2 Delivery O2 Flow Rate FiO2 10/03/16 16:00 97.9 78 18 116/72 Nasal Cannula 10/03/16 11:58 79 18 95 Nasal Cannula 2.0 28 10/03/16 11:48 82 18 97 Nasal Cannula 2.0 10/03/16 11:29 98.3 81 18 107/74 99 Nasal Cannula 2.0 10/03/16 10:46 98.1 10/03/16 07:59 98.1 79 18 103/55 98 Nasal Cannula 2.0 10/03/16 07:44 81 10/03/16 07:37 Nasal Cannula 2.0 10/03/16 07:35 Nasal Cannula 2.0 10/03/16 07:34 78 20 Nasal Cannula 2.0 10/03/16 04:21 98.3 81 18 124/60 93 Nasal Cannula 2.0 10/03/16 04:00 78 10/03/16 03:48 81 18 94 Nasal Cannula 2.0 28 10/03/16 03:48 Nasal Cannula 2.0 28 10/03/16 03:48 Nasal Cannula 10/03/16 03:46 81 18 Nasal Cannula 2.0 28 10/03/16 00:00 81 10/03/16 00:00 98.4 80 19 142/60 94 Nasal Cannula 2.0 10/02/16 20:00 76 10/02/16 20:00 96.8 69 18 120/67 Nasal Cannula 2.0 97 Intake and Output 10/02/16 10/03/16 19:00 07:00 Intake Total 1050 ml 55 ml Output Total 1800 ml Balance 1050 ml -1745 ml IV Total 1050 ml 55 ml Output Urine Total 1800 ml # Voids 1 # Bowel Movements 1 Laboratory Tests Test 10/03/16 04:45 White Blood Count 14.2 K/UL (4.8-10.8) H Red Blood Count 4.48 M/UL (4.20-5.40) Hemoglobin 13.6 G/DL (12.0-16.0) Hematocrit 40.6 % (37.0-47.0) Mean Corpuscular Volume 91 FL (80-99) Mean Corpuscular Hemoglobin 30.3 PG (27.0-31.0) Mean Corpuscular Hemoglobin Concent 33.4 G/DL (32.0-36.0) Red Cell Distribution Width 11.3 % (11.6-14.8) L Platelet Count 216 K/UL (150-450) Mean Platelet Volume 8.4 FL (6.5-10.1) Neutrophils (%) (Auto) 72.7 % (45.0-75.0) Lymphocytes (%) (Auto) 13.2 % (20.0-45.0) L Monocytes (%) (Auto) 7.0 % (1.0-10.0) Eosinophils (%) (Auto) 6.5 % (0.0-3.0) H Basophils (%) (Auto) 0.7 % (0.0-2.0) Sodium Level 135 mEQ/L (135-145) Potassium Level 3.0 mEQ/L (3.4-4.9) L Chloride Level 89 mEQ/L (98-107) L Carbon Dioxide Level 32 mEQ/L (20-30) H Anion Gap 14 (5-15) Blood Urea Nitrogen 22 mg/dL (7-23) Creatinine 1.3 mg/dL (0.5-0.9) H Estimat Glomerular Filtration Rate mL/min (>60) Glucose Level 215 mg/dL (74-106) H Calcium Level 9.2 mg/dL (8.6-10.2) Phosphorus Level 3.3 mg/dL (2.5-4.8) Albumin 3.4 g/dL (3.5-5.2) L Microbiology Date/Time Source Procedure Growth Status 10/02/16 17:00 Stool Clostridium difficile Toxin Assay - Final Complete ROB HOBSON Oct 03, 2016 17:21
[2016-10-03] MEDS: Vancomycin 750mg/D5W 275ml IVPB SCH ×2 (17:44)
[2016-10-03 20:00] VITALS: BP 129/76
[2016-10-03] MEDS: Cefepime HCl 1 GM in D5W 55 ML IV SCH (20:24)
--- NOTE | 2016-10-03 22:38 | Consultation ---
DATE OF CONSULTATION: 10/03/2016 CARDIAC CONSULTATION REFERRING PHYSICIAN: Odette Martinez M.D. REASON FOR REFERRAL: Generalized weakness. HISTORY OF PRESENT ILLNESS: This is an elderly female, who speaks Italian only. Her son actually was translating for me and I have reviewed the patient's chart including director speech language run sheet. Apparently, the paramedics arrived with finding in the patient "mild distress with complaints of weakness". The patient was alert and oriented and was stated that she was weak and dizzy. No chest pain. No shortness of breath. No trauma. No nausea or vomiting, but was noted that EKG and saline fluid challenge was given and the patient's blood pressure apparently improved with the normal saline. The patient was transferred to the emergency room at [facility]. [employer] Architect run sheet indicates that her blood pressure initially of 92/60 that improved to 110/58. On detailed questioning, the patient has not had any nausea or vomiting. She has been eating well, but according to her son her fluid intake has been minimal. She does not have any chest pain or pressure. There is no PND. No orthopnea. No palpitations. She does get dizzy or lightheaded when she stands up and has been going on for some time. No heart pounding or palpitations. PAST MEDICAL HISTORY: Positive for history of diabetes and high blood pressure and high cholesterol. No heart attack. No cancer. No stroke. No hepatitis or tuberculosis. No asthma or emphysema. No ulcers. No kidney problems or liver problems or thyroid problems are noted on detailed questioning. She apparently does have a history of fibroid uterus as well as dementia. She has had a history of cholecystectomy previously. ALLERGIES: She has no known drug allergies. SOCIAL HISTORY: She does not smoke at the present time. Does not drink alcohol at the present time. REVIEW OF SYSTEMS: Gastrointestinal: She has had no bloody stools or black tarry stools. No nausea or vomiting. No diarrhea. Genitourinary: Negative. Pulmonary: Negative. Constitutional: Negative. PHYSICAL EXAMINATION: GENERAL: Shows to be morbidly obese elderly female, in no apparent respiratory distress, and very minimally capable of moving around despite the help from two people to get her up. NECK: Supple. No jugular venous distention. LUNGS: Appear to be clear to auscultation and percussion. CARDIAC EXAMINATION: S1 is normal. S2 is normal. Regular rate and rhythm. No heaves, thrills, or gallops noted. ABDOMEN: Soft and obese. Positive bowel sounds. Nontender. EXTREMITIES: There is no clubbing, cyanosis, nor is there any edema. NEUROLOGICAL: She is awake, alert, and responsive. LABORATORY AND DIAGNOSTIC DATA: White count of 18.7 down to 14.2 today, her hemoglobin of 13.6 today and platelet count of 216,000. Her chemistry, sodium 135, potassium 3.0, chloride 89, bicarbonate 32, BUN 22, creatinine 1.3, and a glucose of 215. Her lactic acid level is 0.4. Phosphorus of 50.3. Albumin of 3.42. Troponin has been negative and her albumin was decreased at 3.9. Her urinalysis shows 2 to 4 WBCs and 2 to [address] scan of the head was performed that showed on 10/02/2016 no intracranial bleed, mass effect, or edema. Moderate atrophy evidence of chronic small vessel disease. A chest x-ray shows enlarged cardiac silhouette and pulmonary vascular redistribution and interstitial edema consistent with congestive heart failure. Her EKG is suggestive of sinus rhythm and no nonspecific ST-T wave abnormalities. ASSESSMENT: 1. Hypotension fluid responsive. 2. Obesity. 3. Leukocytosis. 4. Electrolyte abnormalities. 5. Renal insufficiency. PLAN: Dr. Martinez, this patient was seen in cardiac consultation. The patient's blood pressure has improved. The initial blood pressure readings here at [place] were in the 90 to 110 range that they have improved to about 140 to 150 range at the present time with hydration. The paramedics did notice that the patient's blood pressure had also improved when they had been evaluating the patient with the combination of intravenous fluids. I doubt that she has actually in congestive heart failure despite the x-ray readings. She will have repeat cardiac enzymes and EKGs and an echocardiogram will be ordered for evaluation of left ventricular systolic function. Orthostatic vitals will be attempted, although I am not sure if the patient is able to follow through with the necessary evaluations. Herberth Celestin M.D. DR: BUNNY JOB#: [id number] CC:
[2016-10-04 00:48] VITALS: BP 128/73
[2016-10-04 04:22] VITALS: BP 122/69
[2016-10-04] MEDS: NovoLOG Insulin Flexpen SUBQ SCH ×4 (06:10→21:07)
[2016-10-04 08:10] VITALS: BP 135/72
[2016-10-04 08:21] LABS: TROPONIN I < 0.30 ng/mL (<=0.30)
--- NOTE | 2016-10-04 09:20 | Infectious Diseases Prog Note ---
Assessment/Plan Assessment/Plan ASSESSMENT: 81 y/o female with: // Leukocytosis r/o infection - mild, improved, afebrile, Cx NGTD. No repeat CBC - UA(-), CXR: CHF // Possible bronchitis // Negative C.difficile // Hypotension - improved // Generalized weakness - CT Head: No acute intracranial bleed, mass effect or edema. Moderate atrophy of the brain. Evidence of chronic small vessel disease involving white matter tracts // LUISA - improved // DM2 // Dementia // NKDA // Full Code PLAN: - continue empiric IV vancomycin, cefepime d# 2 for now. Limit soon if no active infection identified - f/u cultures - monitor CBC, temperatures - CBC AM - monitor BMP - monitor CXR Subjective Allergies: Coded Allergies: No Known Allergies (Verified , 05/26/11) Subjective remains afebrile. appears comfortable Cx NGTD Objective Vital Signs Last 24 Hour Vital Signs Date Time Temp Pulse Resp B/P Pulse Ox O2 Delivery O2 Flow Rate FiO2 10/04/16 08:10 97.7 98 18 135/72 95 Nasal Cannula 2.0 10/04/16 07:04 80 18 Nasal Cannula 2.0 28 10/04/16 07:04 Nasal Cannula 10/04/16 07:04 98 Nasal Cannula 2.0 28 10/04/16 07:04 80 18 98 Nasal Cannula 10/04/16 07:04 Nasal Cannula 2.0 28 10/04/16 04:22 98.5 83 17 122/69 95 Nasal Cannula 2.0 10/04/16 04:00 93 10/04/16 03:13 Nasal Cannula 10/04/16 03:13 Nasal Cannula 10/04/16 00:49 89 90 10/04/16 00:48 98.7 88 18 128/73 96 Nasal Cannula 2.0 10/04/16 00:00 89 10/03/16 22:50 87 18 98 Nasal Cannula 2.0 28 10/03/16 22:44 85 18 98 Nasal Cannula 2.0 28 10/03/16 20:00 99.9 86 18 129/76 97 Room Air 10/03/16 20:00 82 10/03/16 19:57 Nasal Cannula 2.0 28 10/03/16 19:56 97 Nasal Cannula 2.0 28 10/03/16 19:55 82 18 97 Nasal Cannula 2.0 28 10/03/16 19:54 82 18 97 Nasal Cannula 2.0 28 10/03/16 19:53 82 18 Nasal Cannula 2.0 28 10/03/16 16:00 77 10/03/16 16:00 97.9 78 18 116/72 Nasal Cannula 10/03/16 15:40 Nasal Cannula 2.0 10/03/16 15:39 Nasal Cannula 2.0 10/03/16 11:58 79 18 95 Nasal Cannula 2.0 28 10/03/16 11:48 82 18 97 Nasal Cannula 2.0 10/03/16 11:29 98.3 81 18 107/74 99 Nasal Cannula 2.0 10/03/16 10:46 98.1 Height (Feet): 5 Height (Inches): 2.00 Weight (Pounds): 198 General Appearance: no acute distress Respiratory/Chest: no respiratory distress Cardiovascular: normal rate, regular rhythm Abdomen: normal bowel sounds, soft, non tender, non distended Microbiology Date/Time Source Procedure Growth Status 10/02/16 11:53 Blood Blood Culture - Preliminary NO GROWTH AFTER 24 HOURS Resulted 10/02/16 11:40 Blood Blood Culture - Preliminary NO GROWTH AFTER 24 HOURS Resulted 10/03/16 16:00 Sputum Gram Stain Pending Resulted 10/03/16 16:00 Sputum Sputum Culture - Preliminary NORMAL ANNETTE PRESENT Resulted 10/02/16 17:00 Stool Clostridium difficile Toxin Assay - Final Complete Laboratory Tests Test 10/04/16 07:27 Troponin I < 0.30 ng/mL (<=0.30) Pro-B-Type Natriuretic Peptide 222 pg/mL (0-450) Current Medications Medications (Trade) Dose Ordered Sig/Dean Route PRN Reason Start Time Stop Time Status Last Admin Dose Admin Acetaminophen (Tylenol) 650 mg Q4H PRN ORAL Fever/Headache/Mild Pain 10/03/16 00:00 11/02/16 00:00 10/03/16 09:47 Al Hydroxide/Mg Hydroxide (Mylanta II) 30 ml Q6H PRN ORAL dyspepsia 10/02/16 16:00 11/01/16 15:59 Albuterol/ Ipratropium 3 ml 3 ml EVERY 4 HOURS PRN HHN Shortness of Breath 10/02/16 16:00 10/07/16 15:59 Cefepime HCl/ Dextrose (Maxipime/D5W) 55 ml @ 110 mls/hr Q24H IV 10/02/16 21:00 10/09/16 20:59 10/03/16 20:24 Dextrose STAT PRN IV Hypoglycemia 10/02/16 16:00 11/01/16 15:59 Heparin Sodium (Porcine) (Heparin 5000 units/ml) 5,000 units EVERY 12 HOURS SUBQ 10/02/16 21:00 11/01/16 20:59 10/03/16 20:27 Insulin Aspart (NovoLOG) BEFORE MEALS AND HS SUBQ 10/02/16 16:30 11/01/16 16:29 10/04/16 06:10 Nitroglycerin (Ntg) 0.4 mg Q5M PRN SL Prn Chest Pain 10/02/16 16:00 11/01/16 15:59 Ondansetron HCl (Zofran) 4 mg Q6H PRN IVP Nausea & Vomiting 10/02/16 16:00 11/01/16 15:59 Polyethylene Glycol (Miralax) 17 gm DAILYPRN PRN ORAL Constipation 10/02/16 16:00 11/01/16 15:59 Promethazine HCl/ Codeine (Phenergan with Codeine) 5 ml Q4H PRN ORAL For Cough 10/02/16 16:00 11/01/16 15:59 Temazepam (Restoril) 15 mg HSPRN PRN ORAL Insomnia 10/02/16 16:00 10/09/16 15:59 Vancomycin HCl (Vanco rx to dose) 1 ea DAILY PRN MISC Per rx protocol 10/02/16 16:00 11/01/16 15:59 Vancomycin HCl/ Dextrose (Vancomycin/D5W) 275 ml @ 183.708 mls/hr Q24H IVPB 10/03/16 18:00 10/08/16 17:59 10/03/16 17:44 RYAN JEFFRIES 24, 2017 09:20
[2016-10-04] MEDS: Heparin 5000 units/ml inj SUBQ SCH ×2 (09:22→21:06)
[2016-10-04] MEDS ORDERED: Tubing IV Secondary IV ONE (10:20)
[2016-10-04] MEDS ORDERED: NS 275ml ONE (10:20)
[2016-10-04 11:31] VITALS: BP 124/70
--- NOTE | 2016-10-04 15:59 | Pulmonology Progress Note ---
Assessment/Plan Problems: (1) Sepsis (2) Pneumonia (3) Episode of generalized weakness (4) Dementia (5) Diabetes mellitus Assessment/Plan improving wbc decreasing sliding scale check echo ID consult appreciated awaiting cardio evaluation no chf echo reviewed cxr in am bc positive one bottle, f/u sensitivity Subjective Interval Events: feeling better, less short of breath Allergies: Coded Allergies: No Known Allergies (Verified , 05/26/11) Objective Last 24 Hour Vital Signs Date Time Temp Pulse Resp B/P Pulse Ox O2 Delivery O2 Flow Rate FiO2 10/04/16 15:00 Nasal Cannula 10/04/16 15:00 Nasal Cannula 10/04/16 11:31 98.2 98 18 124/70 100 Nasal Cannula 2.0 10/04/16 11:02 Nasal Cannula 10/04/16 11:01 Nasal Cannula 10/04/16 09:05 100 10/04/16 09:00 100 10/04/16 08:12 81 10/04/16 08:10 97.7 98 18 135/72 95 Nasal Cannula 2.0 10/04/16 07:04 80 18 Nasal Cannula 2.0 28 10/04/16 07:04 Nasal Cannula 10/04/16 07:04 98 Nasal Cannula 2.0 28 10/04/16 07:04 80 18 98 Nasal Cannula 10/04/16 07:04 Nasal Cannula 2.0 28 10/04/16 04:22 98.5 83 17 122/69 95 Nasal Cannula 2.0 10/04/16 04:00 93 10/04/16 03:13 Nasal Cannula 10/04/16 03:13 Nasal Cannula 10/04/16 00:49 89 90 10/04/16 00:48 98.7 88 18 128/73 96 Nasal Cannula 2.0 10/04/16 00:00 89 10/03/16 22:50 87 18 98 Nasal Cannula 2.0 28 10/03/16 22:44 85 18 98 Nasal Cannula 2.0 28 10/03/16 20:00 99.9 86 18 129/76 97 Room Air 10/03/16 20:00 82 10/03/16 19:57 Nasal Cannula 2.0 28 10/03/16 19:56 97 Nasal Cannula 2.0 28 10/03/16 19:55 82 18 97 Nasal Cannula 2.0 28 10/03/16 19:54 82 18 97 Nasal Cannula 2.0 28 10/03/16 19:53 82 18 Nasal Cannula 2.0 28 10/03/16 16:00 77 10/03/16 16:00 97.9 78 18 116/72 Nasal Cannula Intake and Output 10/03/16 10/04/16 19:00 07:00 Intake Total 200 ml Output Total 150 ml 500 ml Balance 50 ml -500 ml Intake Oral 200 ml Output Urine Total 150 ml 500 ml # Bowel Movements 1 General Appearance: WD/WN HEENT: normocephalic, atraumatic Respiratory/Chest: chest wall non-tender, decreased breath sounds Cardiovascular: normal peripheral pulses, normal rate Abdomen: normal bowel sounds, soft, non tender Genitourinary: normal external genitalia Extremities: no cyanosis Skin: no rash Microbiology Date/Time Source Procedure Growth Status 10/02/16 11:53 Blood Blood Culture - Preliminary Resulted 10/02/16 11:40 Blood Blood Culture - Preliminary NO GROWTH AFTER 24 HOURS Resulted 10/03/16 16:00 Sputum Gram Stain - Final Resulted 10/03/16 16:00 Sputum Sputum Culture - Preliminary NORMAL ANNETTE PRESENT Resulted 10/02/16 17:00 Stool Clostridium difficile Toxin Assay - Final Complete Laboratory Tests 10/04/16 07:27: Troponin I < 0.30, Pro-B-Type Natriuretic Peptide 222 Current Medications Medications (Trade) Dose Ordered Sig/Dean Route PRN Reason Start Time Stop Time Status Last Admin Dose Admin Acetaminophen (Tylenol) 650 mg Q4H PRN ORAL Fever/Headache/Mild Pain 10/03/16 00:00 11/02/16 00:00 10/03/16 09:47 Al Hydroxide/Mg Hydroxide (Mylanta II) 30 ml Q6H PRN ORAL dyspepsia 10/02/16 16:00 11/01/16 15:59 Albuterol/ Ipratropium 3 ml 3 ml EVERY 4 HOURS PRN HHN Shortness of Breath 10/02/16 16:00 10/07/16 15:59 Cefepime HCl/ Dextrose (Maxipime/D5W) 55 ml @ 110 mls/hr Q24H IV 10/02/16 21:00 10/09/16 20:59 10/03/16 20:24 Dextrose STAT PRN IV Hypoglycemia 10/02/16 16:00 11/01/16 15:59 Heparin Sodium (Porcine) (Heparin 5000 units/ml) 5,000 units EVERY 12 HOURS SUBQ 10/02/16 21:00 11/01/16 20:59 10/04/16 09:22 Insulin Aspart (NovoLOG) BEFORE MEALS AND HS SUBQ 10/02/16 16:30 11/01/16 16:29 10/04/16 12:05 Nitroglycerin (Ntg) 0.4 mg Q5M PRN SL Prn Chest Pain 10/02/16 16:00 11/01/16 15:59 Ondansetron HCl (Zofran) 4 mg Q6H PRN IVP Nausea & Vomiting 10/02/16 16:00 11/01/16 15:59 Polyethylene Glycol (Miralax) 17 gm DAILYPRN PRN ORAL Constipation 10/02/16 16:00 11/01/16 15:59 Promethazine HCl/ Codeine (Phenergan with Codeine) 5 ml Q4H PRN ORAL For Cough 10/02/16 16:00 11/01/16 15:59 Temazepam (Restoril) 15 mg HSPRN PRN ORAL Insomnia 10/02/16 16:00 10/09/16 15:59 Vancomycin HCl (Vanco rx to dose) 1 ea DAILY PRN MISC Per rx protocol 10/02/16 16:00 11/01/16 15:59 Vancomycin HCl/ Dextrose (Vancomycin/D5W) 275 ml @ 183.708 mls/hr Q24H IVPB 10/03/16 18:00 10/08/16 17:59 10/03/16 17:44 ROB FORTE Oct 04, 2016 15:59
[2016-10-04 16:00] VITALS: BP 123/62
[2016-10-04] MEDS: Vancomycin 750mg/D5W 275ml IVPB SCH ×2 (18:15)
[2016-10-04 20:00] VITALS: BP 151/73
[2016-10-04] MEDS: Cefepime HCl 1 GM in D5W 55 ML IV SCH (21:09)
[2016-10-04] MEDS ORDERED: Mylanta II UD 30ml ORAL PRN (22:00)
[2016-10-04] MEDS ORDERED: Nitroglycerin Subl 0.4mg tab (Bottle Of 25) SL PRN (22:00)
[2016-10-04] MEDS ORDERED: DuoNeb 0.5-3(2.5)mg/3ml neb HHN PRN (22:09)
[2016-10-04] MEDS ORDERED: Promethazine/Codeine 5ml UD ORAL PRN (22:10)
[2016-10-04] MEDS ORDERED: Miralax 17gm pkt ORAL PRN (22:10)
[2016-10-05] VITALS (7 sets, daily range): BP systolic 114–140; BP diastolic 63–80
[2016-10-05] MEDS: NovoLOG Insulin Flexpen SUBQ SCH ×4 (07:00→20:13)
[2016-10-05 07:15] LABS: BASOPHILS % (AUTO) 1.1 % (0.0-2.0); EOSINOPHILS % (AUTO) 5.2 % (0.0-3.0); LYMPHOCYTES % (AUTO) 11.5 % (20.0-45.0); MEAN CORPUSCULAR HGB CONC 32.4 G/DL (32.0-36.0); MEAN CORPUSCULAR VOLUME 92 FL (80-99); MEAN PLATELET VOLUME 7.8 FL (6.5-10.1); MONOCYTES % (AUTO) 6.7 % (1.0-10.0); NEUTROPHILS % (AUTO) 75.6 % (45.0-75.0); PLATELET COUNT 244 K/UL (150-450); RED CELL DISTRIBUTION WIDTH 11.7 % (11.6-14.8); WHITE BLOOD COUNT 12.2 K/UL (4.8-10.8)
[2016-10-05 07:33] LABS: ALANINE AMINOTRANSFERASE 11 U/L (3-33); ALBUMIN/GLOBULIN RATIO 0.7 (1.0-2.7); ANION GAP 15 (5-15); ASPARTATE AMINO TRANSFERASE 14 U/L (5-40); CALCIUM 8.9 mg/dL (8.6-10.2); CARBON DIOXIDE 29 mEQ/L (20-30); CHLORIDE 93 mEQ/L (98-107); CREATININE 1.1 mg/dL (0.5-0.9); HEMOLYSIS 3; POTASSIUM 3.6 mEQ/L (3.4-4.9); SODIUM 137 mEQ/L (135-145); TOTAL PROTEIN 7.3 g/dL (6.6-8.7)
[2016-10-05] MEDS: Heparin 5000 units/ml inj SUBQ SCH ×2 (11:00→20:15)
--- NOTE | 2016-10-05 11:00 | Infectious Diseases Prog Note ---
Assessment/Plan Assessment/Plan ASSESSMENT: 81 y/o female with: // CONS bacteremia 07/17, m/l contaminant - TTE(-) SBE // Leukocytosis r/o infection - mild, improved, afebrile - UA(-), CXR: CHF // Possible bronchitis // Negative C.difficile // Hypotension - improved // Generalized weakness - CT Head: No acute intracranial bleed, mass effect or edema. Moderate atrophy of the brain. Evidence of chronic small vessel disease involving white matter tracts // LUISA - improved // DM2 // Dementia // NKDA // Full Code PLAN: - continue empiric IV vancomycin, cefepime d# 3 / 5 - f/u final cultures - monitor CBC, temperatures - monitor BMP - monitor CXR Subjective Allergies: Coded Allergies: No Known Allergies (Verified , 05/26/11) Subjective remains afebrile. appears comfortable BCx CONS Objective Vital Signs Last 24 Hour Vital Signs Date Time Temp Pulse Resp B/P Pulse Ox O2 Delivery O2 Flow Rate FiO2 10/05/16 09:09 97.7 86 19 140/70 94 Nasal Cannula 2.0 86 10/05/16 08:57 97.0 86 19 140/70 94 Nasal Cannula 2.0 86 10/05/16 06:20 83 16 94 Nasal Cannula 1.0 24 10/05/16 06:20 Room Air 1.0 24 10/05/16 06:20 80 16 94 Nasal Cannula 1.0 24 10/05/16 06:20 94 Nasal Cannula 1.0 24 10/05/16 04:00 97.7 84 20 124/74 93 Nasal Cannula 3.0 10/05/16 03:35 Nasal Cannula 10/05/16 03:35 Nasal Cannula 10/05/16 00:00 84 95 10/05/16 00:00 97.3 80 20 128/65 90 Room Air 10/04/16 23:40 Nasal Cannula 10/04/16 23:40 Nasal Cannula 10/04/16 20:00 99.3 92 20 151/73 89 Room Air 10/04/16 19:22 Nasal Cannula 2.0 10/04/16 19:22 85 20 98 Nasal Cannula 2.0 10/04/16 19:22 88 20 98 Nasal Cannula 2.0 10/04/16 19:22 98 Nasal Cannula 2.0 10/04/16 16:00 88 10/04/16 16:00 96 18 123/62 98 Room Air 10/04/16 15:00 Nasal Cannula 10/04/16 15:00 Nasal Cannula 10/04/16 11:31 98.2 98 18 124/70 100 Nasal Cannula 2.0 10/04/16 11:02 Nasal Cannula 10/04/16 11:01 Nasal Cannula Height (Feet): 5 Height (Inches): 2.00 Weight (Pounds): 229 General Appearance: no acute distress Respiratory/Chest: no respiratory distress Cardiovascular: normal rate, regular rhythm Abdomen: normal bowel sounds, soft, non tender, non distended Microbiology Date/Time Source Procedure Growth Status 10/02/16 11:53 Blood Blood Culture - Preliminary Staphylococcus Sp Coag Neg Resulted 10/02/16 11:40 Blood Blood Culture - Preliminary NO GROWTH AFTER 48 HOURS Resulted 10/03/16 16:00 Sputum Gram Stain - Final Complete 10/03/16 16:00 Sputum Sputum Culture - Final NORMAL UPPER RESPIRATORY ANNETTE PRESENT Complete 10/02/16 17:00 Stool Clostridium difficile Toxin Assay - Final Complete Laboratory Tests Test 10/05/16 05:00 White Blood Count 12.2 K/UL (4.8-10.8) H Red Blood Count 4.40 M/UL (4.20-5.40) Hemoglobin 13.2 G/DL (12.0-16.0) Hematocrit 40.6 % (37.0-47.0) Mean Corpuscular Volume 92 FL (80-99) Mean Corpuscular Hemoglobin 30.0 PG (27.0-31.0) Mean Corpuscular Hemoglobin Concent 32.4 G/DL (32.0-36.0) Red Cell Distribution Width 11.7 % (11.6-14.8) Platelet Count 244 K/UL (150-450) Mean Platelet Volume 7.8 FL (6.5-10.1) Neutrophils (%) (Auto) 75.6 % (45.0-75.0) H Lymphocytes (%) (Auto) 11.5 % (20.0-45.0) L Monocytes (%) (Auto) 6.7 % (1.0-10.0) Eosinophils (%) (Auto) 5.2 % (0.0-3.0) H Basophils (%) (Auto) 1.1 % (0.0-2.0) Sodium Level 137 mEQ/L (135-145) Potassium Level 3.6 mEQ/L (3.4-4.9) Chloride Level 93 mEQ/L (98-107) L Carbon Dioxide Level 29 mEQ/L (20-30) Anion Gap 15 (5-15) Blood Urea Nitrogen 25 mg/dL (7-23) H Creatinine 1.1 mg/dL (0.5-0.9) H Estimat Glomerular Filtration Rate mL/min (>60) Glucose Level 273 mg/dL (74-106) H Calcium Level 8.9 mg/dL (8.6-10.2) Total Bilirubin 0.5 mg/dL (0.0-1.2) Aspartate Amino Transf (AST/SGOT) 14 U/L (5-40) Alanine Aminotransferase (ALT/SGPT) 11 U/L (3-33) Alkaline Phosphatase 57 U/L (35-104) Total Protein 7.3 g/dL (6.6-8.7) Albumin 3.2 g/dL (3.5-5.2) L Globulin 4.1 g/dL Albumin/Globulin Ratio 0.7 (1.0-2.7) L Current Medications Medications (Trade) Dose Ordered Sig/Dean Route PRN Reason Start Time Stop Time Status Last Admin Dose Admin Acetaminophen (Tylenol) 650 mg Q4H PRN ORAL Fever/Headache/Mild Pain 10/04/16 22:06 11/03/16 22:05 Al Hydroxide/Mg Hydroxide (Mylanta II) 30 ml Q6H PRN ORAL dyspepsia 10/04/16 22:00 11/03/16 21:59 Albuterol/ Ipratropium (DuoNeb 0.5-3(2.5)mg/3ml) 3 ml Q4H PRN HHN Shortness of Breath 10/04/16 22:09 10/09/16 22:08 Cefepime HCl 1 gm/ Dextrose 55 ml @ 110 mls/hr Q24H IV 10/05/16 21:00 10/12/16 20:59 Dextrose (Dextrose 50%) STAT PRN IV Hypoglycemia 10/04/16 22:07 11/03/16 22:06 Heparin Sodium (Porcine) (Heparin 5000 units/ml) 5,000 units EVERY 12 HOURS SUBQ 10/05/16 09:00 11/04/16 08:59 Insulin Aspart (NovoLOG) BEFORE MEALS AND HS SUBQ 10/05/16 06:30 11/04/16 06:29 10/05/16 07:00 Nitroglycerin (Ntg) 0.4 mg Q5M PRN SL Prn Chest Pain 10/04/16 22:00 11/03/16 21:59 Ondansetron HCl (Zofran) 4 mg Q6H PRN IVP Nausea & Vomiting 10/04/16 22:00 11/03/16 21:59 Polyethylene Glycol (Miralax) 17 gm DAILYPRN PRN ORAL Constipation 10/04/16 22:10 11/03/16 22:09 Promethazine HCl/ Codeine (Phenergan with Codeine) 5 ml Q4H PRN ORAL For Cough 10/04/16 22:10 11/03/16 22:09 Temazepam (Restoril) 15 mg HSPRN PRN ORAL Insomnia 10/05/16 21:00 10/12/16 20:59 Vancomycin HCl (Vanco rx to dose) 1 ea DAILY PRN MISC Per rx protocol 10/05/16 09:00 11/04/16 08:59 Vancomycin HCl/ Dextrose (Vancomycin/D5W) 275 ml @ 183.708 mls/hr Q24H IVPB 10/05/16 18:00 10/10/16 17:59 RYAN JEFFRIES Oct 05, 2016 11:00
[2016-10-05] MEDS ORDERED: NS 275ml ONE (13:34)
[2016-10-05] MEDS ORDERED: Vancomycin 750 MG in D5W 275 ML IVPB SCH (18:00)
--- NOTE | 2016-10-05 18:13 | Cardiology Report ---
APPROVED REPORT EXAM: Two-dimensional and M-mode echocardiogram with Doppler and color Doppler. INDICATION Left Ventricular Function M-Mode DIMENSIONS IVSd2.0 (0.7-1.1cm)Left Atrium (MM)3.3 (1.6-4.0cm) LVDd4.0 (3.5-5.6cm)Aortic Root3.3 (2.0-3.7cm) PWd1.6 (0.7-1.1cm)Aortic Cusp Exc.2.0 (1.5-2.0cm) LVDs2.6 (2.5-4.0cm) PWs1.3 cm Limited and technically difficult study due to poor acoustic windows. Study quality precludes accurate assessment of regional wall motion. Normal left ventricular chamber size, systolic function and wall motion to extent visualized. Left ventricular ejection fraction estimated to be grossly normal. Moderate left ventricular hypertrophy. Anterior Echo-free space, may be due to pericardial fat or effusion. Mild left atrial enlargement by 2D. Right cardiac chamber sizes are within normal limits. Mild focal aortic valve sclerosis with adequate cusp excursion. Mildly thickened mitral valve leaflets with normal excursion. Mild mitral annulus and aortic root calcification. Pulmonic valve not well visualized. Normal tricuspid valve structure. A color flow and spectral Doppler study was performed and revealed: Mild to moderate aortic regurgitation. Trace mitral regurgitation. Mitral diastolic velocities suggest reduced left ventricular relaxation (Grade I). Trace tricuspid regurgitation. Tricuspid systolic velocities suggests peak right ventricular systolic pressure of 24 mmHg. No pulmonic regurgitation present.
[2016-10-05] MEDS: Cefepime HCl 1 GM in D5W 55 ML IV SCH (20:56)
--- NOTE | 2016-10-05 21:42 | Pulmonology Progress Note ---
Assessment/Plan Problems: (1) Sepsis (2) Pneumonia (3) Episode of generalized weakness (4) Dementia (5) Diabetes mellitus Assessment/Plan improving wbc decreasing sliding scale check echo ID consult appreciated awaiting cardio evaluation no chf echo reviewed cxr in am bc positive one bottle, f/u sensitivity Subjective ROS Limited/Unobtainable: No Respiratory: Reports: dyspnea at rest, productive cough, shortness of breath, sputum Neurologic: Reports: confusion, weakness Allergies: Coded Allergies: No Known Allergies (Verified , 05/26/11) Objective Last 24 Hour Vital Signs Date Time Temp Pulse Resp B/P Pulse Ox O2 Delivery O2 Flow Rate FiO2 10/05/16 20:00 97.6 88 21 140/80 97 Nasal Cannula 2.0 10/05/16 19:46 Nasal Cannula 10/05/16 19:46 Nasal Cannula 10/05/16 19:25 Nasal Cannula 2.0 28 10/05/16 19:25 95 Nasal Cannula 2.0 28 10/05/16 16:00 98.2 100 19 134/70 95 Nasal Cannula 2.0 10/05/16 15:23 103 20 93 Nasal Cannula 3.0 32 10/05/16 15:22 99 20 93 Nasal Cannula 3.0 32 10/05/16 12:57 98.0 100 19 114/63 94 Nasal Cannula 2.0 100 10/05/16 11:00 86 16 99 Nasal Cannula 3.0 32 10/05/16 11:00 89 16 99 Nasal Cannula 3.0 32 10/05/16 09:09 97.7 86 19 140/70 94 Nasal Cannula 2.0 86 10/05/16 09:00 102 98 10/05/16 08:57 97.0 86 19 140/70 94 Nasal Cannula 2.0 86 10/05/16 06:20 83 16 94 Nasal Cannula 1.0 24 10/05/16 06:20 Room Air 1.0 24 10/05/16 06:20 80 16 94 Nasal Cannula 1.0 24 10/05/16 06:20 94 Nasal Cannula 1.0 24 10/05/16 04:00 97.7 84 20 124/74 93 Nasal Cannula 3.0 10/05/16 03:35 Nasal Cannula 10/05/16 03:35 Nasal Cannula 10/05/16 00:00 84 95 10/05/16 00:00 97.3 80 20 128/65 90 Room Air 10/04/16 23:40 Nasal Cannula 10/04/16 23:40 Nasal Cannula Intake and Output 10/04/16 10/05/16 19:00 07:00 Intake Total 220 ml 210 ml Output Total 200 ml 475 ml Balance 20 ml -265 ml Intake Oral 220 ml 210 ml Output Urine Total 200 ml 475 ml General Appearance: no acute distress HEENT: normocephalic, atraumatic, PERRL Respiratory/Chest: chest wall non-tender, decreased breath sounds, accessory muscle use, rhonchi Breasts: no masses Cardiovascular: normal peripheral pulses, normal rate, regular rhythm, no JVD Abdomen: normal bowel sounds, soft, non tender, no organomegaly Genitourinary: normal external genitalia Extremities: no cyanosis Skin: no rash 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, no motor/sensory deficits Microbiology Date/Time Source Procedure Growth Status 10/03/16 16:00 Sputum Gram Stain - Final Complete 10/03/16 16:00 Sputum Sputum Culture - Final NORMAL UPPER RESPIRATORY ANNETTE PRESENT Complete Laboratory Tests 10/05/16 05:00: White Blood Count 12.2H, Red Blood Count 4.40, Hemoglobin 13.2, Hematocrit 40.6 , Mean Corpuscular Volume 92, Mean Corpuscular Hemoglobin 30.0, Mean Corpuscular Hemoglobin Concent 32.4, Red Cell Distribution Width 11.7, Platelet Count 244, Mean Platelet Volume 7.8, Neutrophils (%) (Auto) 75.6H, Lymphocytes ( %) (Auto) 11.5L, Monocytes (%) (Auto) 6.7, Eosinophils (%) (Auto) 5.2H, Basophils (%) (Auto) 1.1, Sodium Level 137, Potassium Level 3.6, Chloride Level 93L, Carbon Dioxide Level 29, Anion Gap 15, Blood Urea Nitrogen 25H, Creatinine 1.1H, Estimat Glomerular Filtration Rate , Glucose Level 273H, Calcium Level 8.9 , Total Bilirubin 0.5, Aspartate Amino Transf (AST/SGOT) 14, Alanine Aminotransferase (ALT/SGPT) 11, Alkaline Phosphatase 57, Total Protein 7.3, Albumin 3.2L, Globulin 4.1, Albumin/Globulin Ratio 0.7L 10/05/16 17:30: Vancomycin Level Trough 6.5 Current Medications Medications (Trade) Dose Ordered Sig/Dean Route PRN Reason Start Time Stop Time Status Last Admin Dose Admin Acetaminophen (Tylenol) 650 mg Q4H PRN ORAL Fever/Headache/Mild Pain 10/04/16 22:06 11/03/16 22:05 Al Hydroxide/Mg Hydroxide (Mylanta II) 30 ml Q6H PRN ORAL dyspepsia 10/04/16 22:00 11/03/16 21:59 Albuterol/ Ipratropium (DuoNeb 0.5-3(2.5)mg/3ml) 3 ml Q4H PRN HHN Shortness of Breath 10/04/16 22:09 10/09/16 22:08 Cefepime HCl/ Dextrose (Maxipime/D5W) 55 ml @ 110 mls/hr Q24H IV 10/05/16 21:00 10/12/16 20:59 10/05/16 20:56 Dextrose (Dextrose 50%) STAT PRN IV Hypoglycemia 10/04/16 22:07 11/03/16 22:06 Heparin Sodium (Porcine) (Heparin 5000 units/ml) 5,000 units EVERY 12 HOURS SUBQ 10/05/16 09:00 11/04/16 08:59 10/05/16 20:15 Insulin Aspart (NovoLOG) BEFORE MEALS AND HS SUBQ 10/05/16 06:30 11/04/16 06:29 10/05/16 20:13 Nitroglycerin (Ntg) 0.4 mg Q5M PRN SL Prn Chest Pain 10/04/16 22:00 11/03/16 21:59 Ondansetron HCl (Zofran) 4 mg Q6H PRN IVP Nausea & Vomiting 10/04/16 22:00 11/03/16 21:59 Polyethylene Glycol (Miralax) 17 gm DAILYPRN PRN ORAL Constipation 10/04/16 22:10 11/03/16 22:09 Promethazine HCl/ Codeine (Phenergan with Codeine) 5 ml Q4H PRN ORAL For Cough 10/04/16 22:10 11/03/16 22:09 Temazepam (Restoril) 15 mg HSPRN PRN ORAL Insomnia 10/05/16 21:00 10/12/16 20:59 Vancomycin HCl 1 ea 1 ea DAILY PRN MISC Per rx protocol 10/05/16 09:00 11/04/16 08:59 Vancomycin HCl/ Dextrose (Vancomycin/D5W) 275 ml @ 183.708 mls/hr Q12H IVPB 10/06/16 06:00 10/11/16 05:59 ROB FORTE Oct 05, 2016 21:42
[2016-10-06] VITALS: BP 132/73
[2016-10-06 04:00] VITALS: BP 138/71
[2016-10-06] MEDS: NovoLOG Insulin Flexpen SUBQ SCH ×4 (06:18→20:23)
[2016-10-06] MEDS: Vancomycin 750 MG in D5W 275 ML IVPB SCH ×2 (06:26→17:18)
[2016-10-06 08:26] VITALS: BP 130/69
--- NOTE | 2016-10-06 10:14 | Infectious Diseases Prog Note ---
Assessment/Plan Assessment/Plan ASSESSMENT: 81 y/o female with: // CONS bacteremia 07/17, m/l contaminant - TTE(-) SBE // Leukocytosis r/o infection - mild, improved, afebrile. No repeat CBC - UA(-), CXR: CHF // Possible bronchitis // Negative C.difficile // Hypotension - resolved // Generalized weakness - CT Head: No acute intracranial bleed, mass effect or edema. Moderate atrophy of the brain. Evidence of chronic small vessel disease involving white matter tracts // LUISA - improved // DM2 // Dementia // NKDA // Full Code PLAN: - continue empiric IV vancomycin, cefepime d# 4 / 5 - f/u final cultures - monitor CBC, temperatures - monitor BMP - monitor CXR Subjective Allergies: Coded Allergies: No Known Allergies (Verified , 05/26/11) Subjective remains afebrile. appears comfortable Objective Vital Signs Last 24 Hour Vital Signs Date Time Temp Pulse Resp B/P Pulse Ox O2 Delivery O2 Flow Rate FiO2 10/06/16 08:26 98.2 78 20 130/69 94 Room Air 10/06/16 07:30 76 75 10/06/16 07:11 Nasal Cannula 10/06/16 07:11 Nasal Cannula 10/06/16 07:10 Nasal Cannula 2.0 10/06/16 07:10 95 Nasal Cannula 2.0 10/06/16 04:00 96.8 82 20 138/71 93 Room Air 10/06/16 02:52 Nasal Cannula 10/06/16 02:51 Nasal Cannula 10/06/16 00:00 98.2 84 20 132/73 95 Room Air 2.0 10/05/16 23:35 Nasal Cannula 10/05/16 23:34 Nasal Cannula 10/05/16 20:00 97.6 88 21 140/80 97 Nasal Cannula 2.0 10/05/16 19:46 Nasal Cannula 10/05/16 19:46 Nasal Cannula 10/05/16 19:25 Nasal Cannula 2.0 28 10/05/16 19:25 95 Nasal Cannula 2.0 28 10/05/16 16:00 98.2 100 19 134/70 95 Nasal Cannula 2.0 10/05/16 15:23 103 20 93 Nasal Cannula 3.0 32 10/05/16 15:22 99 20 93 Nasal Cannula 3.0 32 10/05/16 12:57 98.0 100 19 114/63 94 Nasal Cannula 2.0 100 10/05/16 11:00 86 16 99 Nasal Cannula 3.0 32 10/05/16 11:00 89 16 99 Nasal Cannula 3.0 32 Height (Feet): 5 Height (Inches): 2.00 Weight (Pounds): 230 General Appearance: no acute distress Respiratory/Chest: no respiratory distress Cardiovascular: normal rate, regular rhythm Abdomen: normal bowel sounds, soft, non tender, non distended Microbiology Date/Time Source Procedure Growth Status 10/03/16 16:00 Sputum Gram Stain - Final Complete 10/03/16 16:00 Sputum Sputum Culture - Final NORMAL UPPER RESPIRATORY ANNETTE PRESENT Complete Laboratory Tests Test 10/05/16 17:30 Vancomycin Level Trough 6.5 ug/mL (5.0-12.0) Current Medications Medications (Trade) Dose Ordered Sig/Dean Route PRN Reason Start Time Stop Time Status Last Admin Dose Admin Acetaminophen (Tylenol) 650 mg Q4H PRN ORAL Fever/Headache/Mild Pain 10/04/16 22:06 11/03/16 22:05 Al Hydroxide/Mg Hydroxide (Mylanta II) 30 ml Q6H PRN ORAL dyspepsia 10/04/16 22:00 11/03/16 21:59 Albuterol/ Ipratropium (DuoNeb 0.5-3(2.5)mg/3ml) 3 ml Q4H PRN HHN Shortness of Breath 10/04/16 22:09 10/09/16 22:08 Cefepime HCl/ Dextrose (Maxipime/D5W) 55 ml @ 110 mls/hr Q24H IV 10/05/16 21:00 10/12/16 20:59 10/05/16 20:56 Dextrose (Dextrose 50%) STAT PRN IV Hypoglycemia 10/04/16 22:07 11/03/16 22:06 Heparin Sodium (Porcine) (Heparin 5000 units/ml) 5,000 units EVERY 12 HOURS SUBQ 10/05/16 09:00 11/04/16 08:59 10/05/16 20:15 Insulin Aspart (NovoLOG) BEFORE MEALS AND HS SUBQ 10/05/16 06:30 11/04/16 06:29 10/06/16 06:18 Nitroglycerin (Ntg) 0.4 mg Q5M PRN SL Prn Chest Pain 10/04/16 22:00 11/03/16 21:59 Ondansetron HCl (Zofran) 4 mg Q6H PRN IVP Nausea & Vomiting 10/04/16 22:00 11/03/16 21:59 Polyethylene Glycol (Miralax) 17 gm DAILYPRN PRN ORAL Constipation 10/04/16 22:10 11/03/16 22:09 Promethazine HCl/ Codeine (Phenergan with Codeine) 5 ml Q4H PRN ORAL For Cough 10/04/16 22:10 11/03/16 22:09 Temazepam (Restoril) 15 mg HSPRN PRN ORAL Insomnia 10/05/16 21:00 10/12/16 20:59 Vancomycin HCl 1 ea 1 ea DAILY PRN MISC Per rx protocol 10/05/16 09:00 11/04/16 08:59 Vancomycin HCl/ Dextrose (Vancomycin/D5W) 275 ml @ 183.708 mls/hr Q12H IVPB 10/06/16 06:00 10/11/16 05:59 10/06/16 06:26 RYAN JEFFRIES 26, 2017 10:14
[2016-10-06] MEDS: Heparin 5000 units/ml inj SUBQ SCH ×2 (10:45→20:01)
[2016-10-06 12:34] VITALS: BP 124/49
[2016-10-06 16:00] VITALS: BP 132/87
--- NOTE | 2016-10-06 18:20 | Cardiology Report ---
APPROVED REPORT EKG Measurement Heart [id number] MD 144P-4 [id number] Normal sinus rhythm Nonspecific T wave abnormality Prolonged QT Abnormal ECG
--- NOTE | 2016-10-06 18:37 | Cardiology Report ---
APPROVED REPORT EKG Measurement Heart [id number] DC [id number] Normal sinus rhythm Nonspecific T wave abnormality Abnormal ECG
[2016-10-06] MEDS: Cefepime HCl 1 GM in D5W 55 ML IV SCH (19:58)
[2016-10-06 20:00] VITALS: BP 140/77
[2016-10-07] VITALS: BP 139/77
[2016-10-07 04:00] VITALS: BP 134/71
[2016-10-07] MEDS: NovoLOG Insulin Flexpen SUBQ SCH ×4 (06:05→21:07)
[2016-10-07 07:29] LABS: BASOPHILS % (AUTO) 1.6 % (0.0-2.0); LYMPHOCYTES % (AUTO) 18.5 % (20.0-45.0); MEAN CORPUSCULAR HEMOGLOBIN 30.5 PG (27.0-31.0); MEAN CORPUSCULAR HGB CONC 33.4 G/DL (32.0-36.0); MEAN CORPUSCULAR VOLUME 91 FL (80-99); MEAN PLATELET VOLUME 7.4 FL (6.5-10.1); MONOCYTES % (AUTO) 6.5 % (1.0-10.0); NEUTROPHILS % (AUTO) 59.5 % (45.0-75.0); PLATELET COUNT 261 K/UL (150-450); RED BLOOD COUNT 4.31 M/UL (4.20-5.40); RED CELL DISTRIBUTION WIDTH 11.6 % (11.6-14.8); WHITE BLOOD COUNT 8.5 K/UL (4.8-10.8)
[2016-10-07 08:00] VITALS: BP 122/61
[2016-10-07 08:15] LABS: ALANINE AMINOTRANSFERASE 13 U/L (3-33); ALBUMIN/GLOBULIN RATIO 0.8 (1.0-2.7); ANION GAP 13 (5-15); ASPARTATE AMINO TRANSFERASE 19 U/L (5-40); CALCIUM 9.1 mg/dL (8.6-10.2); CARBON DIOXIDE 29 mEQ/L (20-30); CHLORIDE 94 mEQ/L (98-107); HEMOLYSIS 5; POTASSIUM 3.4 mEQ/L (3.4-4.9); SODIUM 136 mEQ/L (135-145); TOTAL PROTEIN 6.9 g/dL (6.6-8.7)
--- NOTE | 2016-10-07 08:33 | Diagnostic Imaging Report ---
Indication: Cough Technique: XRAY CHEST 1 V Comparison: 10/02/16 Findings: There is poor inspiration limiting evaluation. Cardiomediastinal silhouette is grossly stable. Atherosclerotic changes are noted. Bilateral interstitial opacities are again seen. Osseous structures are stable. Impression: Grossly stable bilateral interstitial edema/infiltrates.
--- NOTE | 2016-10-07 09:24 | Infectious Diseases Prog Note ---
Assessment/Plan Assessment/Plan ASSESSMENT: 81 y/o female with: // Possible bronchitis - SCx NRF - CXR 10/05: Grossly stable bilateral interstitial edema/infiltrates. // CONS bacteremia 1/, m/l contaminant - TTE(-) SBE // Leukocytosis r/o infection - resolved, Cx NGTD - UA(-), CXR: CHF // Negative C.difficile // Hypotension - resolved // Generalized weakness - CT Head: No acute intracranial bleed, mass effect or edema. Moderate atrophy of the brain. Evidence of chronic small vessel disease involving white matter tracts // LUISA - improved // DM2 // Dementia // NKDA // Full Code PLAN: - limit empiric IV vancomycin, cefepime after today d# 5 / 5, monitor pt off of ABX - f/u final cultures - monitor CBC, temperatures - monitor BMP - monitor CXR Subjective Allergies: Coded Allergies: No Known Allergies (Verified , 05/26/11) Subjective remains afebrile. appears comfortable Objective Vital Signs Last 24 Hour Vital Signs Date Time Temp Pulse Resp B/P Pulse Ox O2 Delivery O2 Flow Rate FiO2 10/07/16 08:00 97.7 90 20 122/61 97 Nasal Cannula 10/07/16 04:00 80 81 10/07/16 04:00 97.5 69 18 134/71 95 Nasal Cannula 10/07/16 03:12 Nasal Cannula 3.0 10/07/16 03:12 Nasal Cannula 3.0 10/07/16 00:00 97.0 79 20 139/77 94 Nasal Cannula 10/06/16 23:34 Nasal Cannula 3.0 10/06/16 23:34 Nasal Cannula 3.0 10/06/16 20:00 98.1 77 20 140/77 94 Nasal Cannula 2.0 10/06/16 19:47 Nasal Cannula 3.0 32 10/06/16 19:47 Nasal Cannula 3.0 32 10/06/16 19:46 Nasal Cannula 2.0 28 10/06/16 19:46 96 Nasal Cannula 2.0 28 10/06/16 16:00 97.9 86 18 132/87 91 Nasal Cannula 2.0 10/06/16 15:55 Nasal Cannula 3.0 32 10/06/16 15:55 Nasal Cannula 3.0 32 10/06/16 12:34 98.5 82 19 124/49 95 Room Air 10/06/16 10:33 Nasal Cannula 10/06/16 10:33 Nasal Cannula Height (Feet): 5 Height (Inches): 2.00 Weight (Pounds): 231 General Appearance: no acute distress Respiratory/Chest: no respiratory distress Cardiovascular: normal rate, regular rhythm Abdomen: normal bowel sounds, soft, non tender, non distended Laboratory Tests Test 10/07/16 05:55 White Blood Count 8.5 K/UL (4.8-10.8) Red Blood Count 4.31 M/UL (4.20-5.40) Hemoglobin 13.1 G/DL (12.0-16.0) Hematocrit 39.4 % (37.0-47.0) Mean Corpuscular Volume 91 FL (80-99) Mean Corpuscular Hemoglobin 30.5 PG (27.0-31.0) Mean Corpuscular Hemoglobin Concent 33.4 G/DL (32.0-36.0) Red Cell Distribution Width 11.6 % (11.6-14.8) Platelet Count 261 K/UL (150-450) Mean Platelet Volume 7.4 FL (6.5-10.1) Neutrophils (%) (Auto) 59.5 % (45.0-75.0) Lymphocytes (%) (Auto) 18.5 % (20.0-45.0) L Monocytes (%) (Auto) 6.5 % (1.0-10.0) Eosinophils (%) (Auto) 14.0 % (0.0-3.0) H Basophils (%) (Auto) 1.6 % (0.0-2.0) Sodium Level 136 mEQ/L (135-145) Potassium Level 3.4 mEQ/L (3.4-4.9) Chloride Level 94 mEQ/L (98-107) L Carbon Dioxide Level 29 mEQ/L (20-30) Anion Gap 13 (5-15) Blood Urea Nitrogen 17 mg/dL (7-23) Creatinine 1.0 mg/dL (0.5-0.9) H Estimat Glomerular Filtration Rate mL/min (>60) Glucose Level 255 mg/dL (74-106) H Calcium Level 9.1 mg/dL (8.6-10.2) Total Bilirubin 0.4 mg/dL (0.0-1.2) Aspartate Amino Transf (AST/SGOT) 19 U/L (5-40) Alanine Aminotransferase (ALT/SGPT) 13 U/L (3-33) Alkaline Phosphatase 54 U/L (35-104) Pro-B-Type Natriuretic Peptide 713 pg/mL (0-450) H Total Protein 6.9 g/dL (6.6-8.7) Albumin 3.1 g/dL (3.5-5.2) L Globulin 3.8 g/dL Albumin/Globulin Ratio 0.8 (1.0-2.7) L Vancomycin Level Trough 12.1 ug/mL (5.0-12.0) H Current Medications Medications (Trade) Dose Ordered Sig/Dean Route PRN Reason Start Time Stop Time Status Last Admin Dose Admin Acetaminophen (Tylenol) 650 mg Q4H PRN ORAL Fever/Headache/Mild Pain 10/04/16 22:06 11/03/16 22:05 Al Hydroxide/Mg Hydroxide (Mylanta II) 30 ml Q6H PRN ORAL dyspepsia 10/04/16 22:00 11/03/16 21:59 Albuterol/ Ipratropium (DuoNeb 0.5-3(2.5)mg/3ml) 3 ml Q4H PRN HHN Shortness of Breath 10/04/16 22:09 10/09/16 22:08 Cefepime HCl/ Dextrose (Maxipime/D5W) 55 ml @ 110 mls/hr Q24H IV 10/05/16 21:00 10/12/16 20:59 10/06/16 19:58 Dextrose (Dextrose 50%) STAT PRN IV Hypoglycemia 10/04/16 22:07 11/03/16 22:06 Heparin Sodium (Porcine) (Heparin 5000 units/ml) 5,000 units EVERY 12 HOURS SUBQ 10/05/16 09:00 11/04/16 08:59 10/06/16 20:01 Insulin Aspart (NovoLOG) BEFORE MEALS AND HS SUBQ 10/05/16 06:30 11/04/16 06:29 10/07/16 06:05 Nitroglycerin (Ntg) 0.4 mg Q5M PRN SL Prn Chest Pain 10/04/16 22:00 11/03/16 21:59 Ondansetron HCl (Zofran) 4 mg Q6H PRN IVP Nausea & Vomiting 10/04/16 22:00 11/03/16 21:59 Polyethylene Glycol (Miralax) 17 gm DAILYPRN PRN ORAL Constipation 10/04/16 22:10 11/03/16 22:09 Promethazine HCl/ Codeine (Phenergan with Codeine) 5 ml Q4H PRN ORAL For Cough 10/04/16 22:10 11/03/16 22:09 10/06/16 18:23 Temazepam (Restoril) 15 mg HSPRN PRN ORAL Insomnia 10/05/16 21:00 10/12/16 20:59 Vancomycin HCl 1 ea 1 ea DAILY PRN MISC Per rx protocol 10/05/16 09:00 11/04/16 08:59 Vancomycin HCl/ Dextrose (Vancomycin/D5W) 275 ml @ 183.708 mls/hr Q12H IVPB 10/06/16 06:00 10/11/16 05:59 10/06/16 17:18 RYAN JEFFRIES Oct 07, 2016 09:23
[2016-10-07] MEDS: Heparin 5000 units/ml inj SUBQ SCH ×2 (09:45→21:07)
[2016-10-07] MEDS: Vancomycin 750 MG in D5W 275 ML IVPB SCH ×2 (09:48→18:14)
[2016-10-07 12:00] VITALS: BP 132/71
--- NOTE | 2016-10-07 13:33 | Diagnostic Imaging Report ---
Indication: DYSPNEA Technique: One view of the chest Comparison: 10/05/2016 Findings: Somewhat better inspiration currently. Interstitial congestive changes persists. The heart remains enlarged. No new infiltrates. Impression: Unchanged, over 2 days, findings as above.
[2016-10-07 16:00] VITALS: BP 130/78
[2016-10-07 20:00] VITALS: BP 141/78
[2016-10-07] MEDS: Cefepime HCl 1 GM in D5W 55 ML IV SCH (21:06)
--- NOTE | 2016-10-07 23:35 | Pulmonology Progress Note ---
Assessment/Plan Problems: (1) Sepsis (2) Pneumonia (3) Episode of generalized weakness (4) Dementia (5) Diabetes mellitus Assessment/Plan improving wbc decreasing sliding scale check echo ID consult appreciated awaiting cardio evaluation no chf echo reviewed cxr in am bc positive one bottle, f/u sensitivity Subjective ROS Limited/Unobtainable: Yes Constitutional: Reports: fatigue Respiratory: Reports: dyspnea at rest, dyspnea on exertion, pleuritic pain, productive cough, shortness of breath, sputum, wheezing Gastrointestinal/Abdominal: Reports: nausea Neurologic: Reports: weakness Allergies: Coded Allergies: No Known Allergies (Verified , 05/26/11) Objective Last 24 Hour Vital Signs Date Time Temp Pulse Resp B/P Pulse Ox O2 Delivery O2 Flow Rate FiO2 10/07/16 20:00 97.7 81 22 141/78 95 Nasal Cannula 2.0 10/07/16 19:00 Nasal Cannula 3.0 32 10/07/16 19:00 94 Nasal Cannula 2.0 28 10/07/16 19:00 Nasal Cannula 2.0 28 10/07/16 19:00 74 16 94 Nasal Cannula 3.0 32 10/07/16 16:00 97.7 64 16 130/78 95 Room Air 10/07/16 15:08 88 90 10/07/16 15:00 Nasal Cannula 3.0 10/07/16 15:00 Nasal Cannula 3.0 10/07/16 12:00 97.7 85 19 132/71 94 Room Air 10/07/16 11:10 Nasal Cannula 3.0 10/07/16 11:10 Nasal Cannula 3.0 10/07/16 08:00 97.7 90 20 122/61 97 Nasal Cannula 10/07/16 07:10 Nasal Cannula 2.0 28 10/07/16 07:10 Nasal Cannula 3.0 10/07/16 07:10 94 Nasal Cannula 2.0 28 10/07/16 07:10 95 18 94 Nasal Cannula 3.0 10/07/16 04:00 80 81 10/07/16 04:00 97.5 69 18 134/71 95 Nasal Cannula 10/07/16 03:12 Nasal Cannula 3.0 10/07/16 03:12 Nasal Cannula 3.0 10/07/16 00:00 97.0 79 20 139/77 94 Nasal Cannula Intake and Output 10/06/16 10/07/16 19:00 07:00 Intake Total 727.416 ml 240 ml Output Total 600 ml 1200 ml Balance 127.416 ml -960 ml Intake Oral 360 ml 240 ml IV Total 367.416 ml Output Urine Total 600 ml 1200 ml General Appearance: no acute distress HEENT: normocephalic, atraumatic, PERRL Respiratory/Chest: chest wall non-tender, decreased breath sounds, accessory muscle use, rhonchi, expiratory wheezing Breasts: no masses Cardiovascular: normal peripheral pulses, normal rate, regular rhythm, no JVD Abdomen: normal bowel sounds, soft, non tender, no organomegaly Genitourinary: normal external genitalia Extremities: no cyanosis Neurologic/Psychiatric: benefit specialist II-XII grossly normal, responsive, disoriented Laboratory Tests 10/07/16 05:55: White Blood Count 8.5, Red Blood Count 4.31, Hemoglobin 13.1, Hematocrit 39.4, Mean Corpuscular Volume 91, Mean Corpuscular Hemoglobin 30.5, Mean Corpuscular Hemoglobin Concent 33.4, Red Cell Distribution Width 11.6, Platelet Count 261, Mean Platelet Volume 7.4, Neutrophils (%) (Auto) 59.5, Lymphocytes (%) (Auto) 18.5L, Monocytes (%) (Auto) 6.5, Eosinophils (%) (Auto) 14.0H, Basophils (%) ( Auto) 1.6, Sodium Level 136, Potassium Level 3.4, Chloride Level 94L, Carbon Dioxide Level 29, Anion Gap 13, Blood Urea Nitrogen 17, Creatinine 1.0H, Estimat Glomerular Filtration Rate , Glucose Level 255H, Calcium Level 9.1, Total Bilirubin 0.4, Aspartate Amino Transf (AST/SGOT) 19, Alanine Aminotransferase (ALT/SGPT) 13, Alkaline Phosphatase 54, Pro-B-Type Natriuretic Peptide 713H, Total Protein 6.9, Albumin 3.1L, Globulin 3.8, Albumin/Globulin Ratio 0.8L, Vancomycin Level Trough 12.1H Current Medications Medications (Trade) Dose Ordered Sig/Dean Route PRN Reason Start Time Stop Time Status Last Admin Dose Admin Acetaminophen (Tylenol) 650 mg Q4H PRN ORAL Fever/Headache/Mild Pain 10/04/16 22:06 11/03/16 22:05 Al Hydroxide/Mg Hydroxide (Mylanta II) 30 ml Q6H PRN ORAL dyspepsia 10/04/16 22:00 11/03/16 21:59 Albuterol/ Ipratropium (DuoNeb 0.5-3(2.5)mg/3ml) 3 ml Q4H PRN HHN Shortness of Breath 10/04/16 22:09 10/09/16 22:08 Cefepime HCl/ Dextrose (Maxipime/D5W) 55 ml @ 110 mls/hr Q24H IV 10/05/16 21:00 10/07/16 23:59 10/07/16 21:06 Dextrose (Dextrose 50%) STAT PRN IV Hypoglycemia 10/04/16 22:07 11/03/16 22:06 Heparin Sodium (Porcine) (Heparin 5000 units/ml) 5,000 units EVERY 12 HOURS SUBQ 10/05/16 09:00 11/04/16 08:59 10/07/16 21:07 Insulin Aspart (NovoLOG) BEFORE MEALS AND HS SUBQ 10/05/16 06:30 11/04/16 06:29 10/07/16 21:07 Nitroglycerin (Ntg) 0.4 mg Q5M PRN SL Prn Chest Pain 10/04/16 22:00 11/03/16 21:59 Ondansetron HCl (Zofran) 4 mg Q6H PRN IVP Nausea & Vomiting 10/04/16 22:00 11/03/16 21:59 Polyethylene Glycol (Miralax) 17 gm DAILYPRN PRN ORAL Constipation 10/04/16 22:10 11/03/16 22:09 Promethazine HCl/ Codeine (Phenergan with Codeine) 5 ml Q4H PRN ORAL For Cough 10/04/16 22:10 11/03/16 22:09 10/06/16 18:23 Temazepam (Restoril) 15 mg HSPRN PRN ORAL Insomnia 10/05/16 21:00 10/12/16 20:59 Vancomycin HCl 1 ea 1 ea DAILY PRN MISC Per rx protocol 10/05/16 09:00 10/07/16 23:59 Vancomycin HCl/ Dextrose (Vancomycin/D5W) 275 ml @ 183.708 mls/hr Q12H IVPB 10/06/16 06:00 10/07/16 23:59 10/07/16 18:14 ROB FORTE Oct 07, 2016 23:34
[2016-10-08] VITALS (7 sets, daily range): BP systolic 114–138; BP diastolic 68–83
--- NOTE | 2016-10-08 04:52 | Infectious Diseases Prog Note ---
Assessment/Plan Assessment/Plan ASSESSMENT: 81 y/o female with: // Possible bronchitis - SCx NRF - CXR 10/05: Grossly stable bilateral interstitial edema/infiltrates. // CONS bacteremia 1/, m/l contaminant - TTE(-) SBE // Leukocytosis r/o infection - resolved, Cx NGTD - UA(-), CXR: CHF // Negative C.difficile // Hypotension - resolved // Generalized weakness - CT Head: No acute intracranial bleed, mass effect or edema. Moderate atrophy of the brain. Evidence of chronic small vessel disease involving white matter tracts // LUISA - improved // DM2 // Dementia // NKDA // Full Code PLAN: - monitor pt off of ABX ( 10/07 SP IV vancomycin, cefepime d# / ) - monitor CBC, temperatures - monitor BMP - monitor CXR Subjective Constitutional: Denies: anorexia, chills, drenching sweats, fatigue, fever, no symptoms, other Allergies: Coded Allergies: No Known Allergies (Verified , 05/26/11) Objective Vital Signs Last 24 Hour Vital Signs Date Time Temp Pulse Resp B/P Pulse Ox O2 Delivery O2 Flow Rate FiO2 10/08/16 03:00 Nasal Cannula 3.0 32 10/08/16 03:00 Nasal Cannula 3.0 32 10/08/16 00:00 93 94 99 10/08/16 00:00 97.8 93 20 138/79 99 Nasal Cannula 2.0 10/07/16 23:00 Nasal Cannula 3.0 32 10/07/16 23:00 Nasal Cannula 3.0 32 10/07/16 20:00 97.7 81 22 141/78 95 Nasal Cannula 2.0 10/07/16 19:00 Nasal Cannula 3.0 32 10/07/16 19:00 94 Nasal Cannula 2.0 28 10/07/16 19:00 Nasal Cannula 2.0 28 10/07/16 19:00 74 16 94 Nasal Cannula 3.0 32 10/07/16 16:00 97.7 64 16 130/78 95 Room Air 10/07/16 15:08 88 90 10/07/16 15:00 Nasal Cannula 3.0 10/07/16 15:00 Nasal Cannula 3.0 10/07/16 12:00 97.7 85 19 132/71 94 Room Air 10/07/16 11:10 Nasal Cannula 3.0 10/07/16 11:10 Nasal Cannula 3.0 10/07/16 08:00 97.7 90 20 122/61 97 Nasal Cannula 10/07/16 07:10 Nasal Cannula 2.0 28 10/07/16 07:10 Nasal Cannula 3.0 10/07/16 07:10 94 Nasal Cannula 2.0 10/07/16 07:10 95 18 94 Nasal Cannula 3.0 Height (Feet): 5 Height (Inches): 2.00 Weight (Pounds): 231 HEENT: atraumatic Respiratory/Chest: lungs clear Cardiovascular: regular rhythm Abdomen: no organomegaly Laboratory Tests Test 10/07/16 05:55 White Blood Count 8.5 K/UL (4.8-10.8) Red Blood Count 4.31 M/UL (4.20-5.40) Hemoglobin 13.1 G/DL (12.0-16.0) Hematocrit 39.4 % (37.0-47.0) Mean Corpuscular Volume 91 FL (80-99) Mean Corpuscular Hemoglobin 30.5 PG (27.0-31.0) Mean Corpuscular Hemoglobin Concent 33.4 G/DL (32.0-36.0) Red Cell Distribution Width 11.6 % (11.6-14.8) Platelet Count 261 K/UL (150-450) Mean Platelet Volume 7.4 FL (6.5-10.1) Neutrophils (%) (Auto) 59.5 % (45.0-75.0) Lymphocytes (%) (Auto) 18.5 % (20.0-45.0) L Monocytes (%) (Auto) 6.5 % (1.0-10.0) Eosinophils (%) (Auto) 14.0 % (0.0-3.0) H Basophils (%) (Auto) 1.6 % (0.0-2.0) Sodium Level 136 mEQ/L (135-145) Potassium Level 3.4 mEQ/L (3.4-4.9) Chloride Level 94 mEQ/L (98-107) L Carbon Dioxide Level 29 mEQ/L (20-30) Anion Gap 13 (5-15) Blood Urea Nitrogen 17 mg/dL (7-23) Creatinine 1.0 mg/dL (0.5-0.9) H Estimat Glomerular Filtration Rate mL/min (>60) Glucose Level 255 mg/dL (74-106) H Calcium Level 9.1 mg/dL (8.6-10.2) Total Bilirubin 0.4 mg/dL (0.0-1.2) Aspartate Amino Transf (AST/SGOT) 19 U/L (5-40) Alanine Aminotransferase (ALT/SGPT) 13 U/L (3-33) Alkaline Phosphatase 54 U/L (35-104) Pro-B-Type Natriuretic Peptide 713 pg/mL (0-450) H Total Protein 6.9 g/dL (6.6-8.7) Albumin 3.1 g/dL (3.5-5.2) L Globulin 3.8 g/dL Albumin/Globulin Ratio 0.8 (1.0-2.7) L Vancomycin Level Trough 12.1 ug/mL (5.0-12.0) H Current Medications Medications (Trade) Dose Ordered Sig/Dean Route PRN Reason Start Time Stop Time Status Last Admin Dose Admin Acetaminophen (Tylenol) 650 mg Q4H PRN ORAL Fever/Headache/Mild Pain 10/04/16 22:06 11/03/16 22:05 Al Hydroxide/Mg Hydroxide (Mylanta II) 30 ml Q6H PRN ORAL dyspepsia 10/04/16 22:00 11/03/16 21:59 Albuterol/ Ipratropium (DuoNeb 0.5-3(2.5)mg/3ml) 3 ml Q4H PRN HHN Shortness of Breath 10/04/16 22:09 10/09/16 22:08 Dextrose (Dextrose 50%) STAT PRN IV Hypoglycemia 10/04/16 22:07 11/03/16 22:06 Heparin Sodium (Porcine) (Heparin 5000 units/ml) 5,000 units EVERY 12 HOURS SUBQ 10/05/16 09:00 11/04/16 08:59 10/07/16 21:07 Insulin Aspart (NovoLOG) BEFORE MEALS AND HS SUBQ 10/05/16 06:30 11/04/16 06:29 10/07/16 21:07 Nitroglycerin (Ntg) 0.4 mg Q5M PRN SL Prn Chest Pain 10/04/16 22:00 11/03/16 21:59 Ondansetron HCl (Zofran) 4 mg Q6H PRN IVP Nausea & Vomiting 10/04/16 22:00 11/03/16 21:59 Polyethylene Glycol (Miralax) 17 gm DAILYPRN PRN ORAL Constipation 10/04/16 22:10 11/03/16 22:09 Promethazine HCl/ Codeine (Phenergan with Codeine) 5 ml Q4H PRN ORAL For Cough 10/04/16 22:10 11/03/16 22:09 10/06/16 18:23 Temazepam (Restoril) 15 mg HSPRN PRN ORAL Insomnia 10/05/16 21:00 10/12/16 20:59 KARLY LOWE M.D. Oct 08, 2016 04:52
[2016-10-08] MEDS: NovoLOG Insulin Flexpen SUBQ SCH ×6 (06:04→20:52)
[2016-10-08] MEDS: Heparin 5000 units/ml inj SUBQ SCH ×2 (09:19→20:52)
--- NOTE | 2016-10-08 09:59 | Consultation ---
DATE OF CONSULTATION: 10/08/2016 ENDOCRINOLOGY CONSULTATION: REFERRING PHYSICIAN: Odette Martinez M.D. REASON FOR CONSULTATION: Diabetes management. HISTORY OF PRESENT ILLNESS: The patient is an 81-year-old demented diabetic female who admitted on 10/02/2016 with hypotension and generalized weakness. CT of the brain was negative. [place] [id number] with left shift and diagnosed with sepsis. Glucose was elevated and Endocrinology was consulted in order to assist in the management of hyperglycemia. PAST MEDICAL HISTORY: 1. Diabetes 2. Hypertension. 3. Hyperlipidemia. 4. Dementia. 5. Fibroid uterus. 6. Hypothyroidism. PAST SURGICAL HISTORY: Cholecystectomy. MEDICATIONS: 1. Lantus 40 units in the morning. 2. Glipizide 2.5 mg daily. For the rest, refer to the medication reconciliation form. ALLERGIES: None. SOCIAL HISTORY: No smoking. No alcohol or drug use. FAMILY HISTORY: Noncontributory. REVIEW OF SYSTEMS: As per history of present illness. PHYSICAL EXAMINATION: VITAL SIGNS: Blood pressure 132/80, pulse 80, temperature 98.3 degrees, and respiratory rate 18. HEENT: Pupils are equal and reactive to light. Sclerae are anicteric. NECK: No JVD. No thyromegaly. LUNGS: Clear. HEART: Regular rate and rhythm. ABDOMEN: Positive bowel sounds. EXTREMITIES: No clubbing, cyanosis, or edema. LABORATORY DATA: WBC 18, hemoglobin 13.1, hematocrit 39.4, and platelet count 261,000. Sodium 136, potassium 3.4, chloride 94, bicarbonate 29, BUN 17, creatinine 1.3, and glucose 255. BNP 713. DIAGNOSES: 1. Leukocytosis. 2. Diabetes, out of control. 3. Hypothyroidism. PLAN: 1. Discontinue glipizide. 2. Start Levemir 24 units every morning. 3. Start NovoLog 8 units before each meal + insulin sliding scale. 4. Levothyroxine 75 mcg daily. 5. Check TSH, T3, T4. Thank you, Dr. Martinez, for the courtesy of this consultation. James Mckeon M.D. DR: Celso JOB#: [id number] CC: JM
[2016-10-08 10:09] LABS: THYROID STIMULATING HORMONE 3.43 uIU/mL (0.300-4.500)
[2016-10-08] MEDS: Levemir Flexpen SUBQ SCH (10:40)
--- NOTE | 2016-10-08 22:56 | Pulmonology Progress Note ---
Assessment/Plan Problems: (1) Sepsis (2) Pneumonia (3) Episode of generalized weakness (4) Dementia (5) Diabetes mellitus Assessment/Plan improving wbc decreasing sliding scale check echo ID consult appreciated awaiting cardio evaluation no chf echo reviewed cxr in am bc positive one bottle, f/u sensitivity Subjective ROS Limited/Unobtainable: Yes Constitutional: Reports: anorexia, chills, fatigue, fever Respiratory: Reports: dyspnea at rest, dyspnea on exertion, productive cough, shortness of breath Neurologic: Reports: confusion, weakness Allergies: Coded Allergies: No Known Allergies (Verified , 05/26/11) Objective Last 24 Hour Vital Signs Date Time Temp Pulse Resp B/P Pulse Ox O2 Delivery O2 Flow Rate FiO2 10/08/16 21:46 Nasal Cannula 2.0 10/08/16 21:45 96 Nasal Cannula 2.0 10/08/16 20:00 97.0 85 20 120/68 93 Room Air 10/08/16 16:00 98.2 78 20 114/75 92 Room Air 10/08/16 12:55 97.0 77 19 130/72 93 Room Air 10/08/16 10:43 91 Room Air 21 10/08/16 09:45 91 97 10/08/16 09:27 98.1 90 17 134/83 93 Nasal Cannula 2.0 10/08/16 08:57 98.1 90 17 134/83 93 Nasal Cannula 2.0 10/08/16 07:56 Nasal Cannula 2.0 10/08/16 07:55 94 Nasal Cannula 2.0 10/08/16 04:00 97.7 92 20 136/78 99 Nasal Cannula 2.0 10/08/16 03:00 Nasal Cannula 3.0 32 10/08/16 03:00 Nasal Cannula 3.0 32 10/08/16 00:00 93 94 99 10/08/16 00:00 97.8 93 20 138/79 99 Nasal Cannula 2.0 10/07/16 23:00 Nasal Cannula 3.0 32 10/07/16 23:00 Nasal Cannula 3.0 32 Intake and Output 10/07/16 10/08/16 19:00 07:00 Intake Total 663.708 ml 698.708 ml Output Total 275 ml 900 ml Balance 388.708 ml -201.292 ml Intake Oral 480 ml 515 ml IV Total 183.708 ml 183.708 ml Output Urine Total 275 ml 900 ml # Bowel Movements 3 2 General Appearance: no acute distress HEENT: normocephalic, atraumatic, PERRL Respiratory/Chest: chest wall non-tender, decreased breath sounds, accessory muscle use, rhonchi Breasts: no masses Cardiovascular: normal peripheral pulses, normal rate, regular rhythm, no JVD Abdomen: normal bowel sounds, soft, non tender, no organomegaly Genitourinary: normal external genitalia Extremities: no cyanosis Skin: rash, lesions Neurologic/Psychiatric: responsive, disoriented Laboratory Tests 10/08/16 09:25: Thyroid Stimulating Hormone (TSH) 3.430, Free Thyroxine 1.25 Current Medications Medications (Trade) Dose Ordered Sig/Dean Route PRN Reason Start Time Stop Time Status Last Admin Dose Admin Acetaminophen (Tylenol) 650 mg Q4H PRN ORAL Fever/Headache/Mild Pain 10/04/16 22:06 11/03/16 22:05 Al Hydroxide/Mg Hydroxide (Mylanta II) 30 ml Q6H PRN ORAL dyspepsia 10/04/16 22:00 11/03/16 21:59 Albuterol/ Ipratropium (DuoNeb 0.5-3(2.5)mg/3ml) 3 ml Q4H PRN HHN Shortness of Breath 10/04/16 22:09 10/09/16 22:08 Dextrose (Dextrose 50%) STAT PRN IV Hypoglycemia 10/04/16 22:07 11/03/16 22:06 Heparin Sodium (Porcine) (Heparin 5000 units/ml) 5,000 units EVERY 12 HOURS SUBQ 10/05/16 09:00 11/04/16 08:59 10/08/16 20:52 Insulin Aspart (NovoLOG) BEFORE MEALS AND HS SUBQ 10/05/16 06:30 11/04/16 06:29 10/08/16 20:52 Insulin Aspart (NovoLOG) 8 units NOVOTIAC SUBQ 10/08/16 11:50 11/07/16 11:49 10/08/16 17:27 Insulin Detemir (Levemir) 24 units DAILY SUBQ 10/08/16 09:00 11/07/16 08:59 10/08/16 10:40 Levothyroxine Sodium (Synthroid) 75 mcg DAILY@0630 ORAL 10/08/16 09:00 11/07/16 08:59 10/08/16 11:41 Nitroglycerin (Ntg) 0.4 mg Q5M PRN SL Prn Chest Pain 10/04/16 22:00 11/03/16 21:59 Ondansetron HCl (Zofran) 4 mg Q6H PRN IVP Nausea & Vomiting 10/04/16 22:00 11/03/16 21:59 Polyethylene Glycol (Miralax) 17 gm DAILYPRN PRN ORAL Constipation 10/04/16 22:10 11/03/16 22:09 Promethazine HCl/ Codeine (Phenergan with Codeine) 5 ml Q4H PRN ORAL For Cough 10/04/16 22:10 11/03/16 22:09 10/06/16 18:23 Temazepam (Restoril) 15 mg HSPRN PRN ORAL Insomnia 10/05/16 21:00 10/12/16 20:59 ROB FORTE Oct 08, 2016 22:56
[2016-10-09] VITALS: BP 128/85
[2016-10-09 04:00] VITALS: BP 121/83
[2016-10-09] MEDS: NovoLOG Insulin Flexpen SUBQ SCH ×6 (06:14→17:05)
[2016-10-09 08:08] VITALS: BP 113/58
[2016-10-09] MEDS: Levemir Flexpen SUBQ SCH (08:35)
[2016-10-09] MEDS: Heparin 5000 units/ml inj SUBQ SCH (08:36)
--- NOTE | 2016-10-09 09:32 | Infectious Diseases Prog Note ---
Assessment/Plan Assessment/Plan ASSESSMENT: 81 y/o female with: // Possible bronchitis - SP Rx , - SCx NRF - CXR 10/05: Grossly stable bilateral interstitial edema/infiltrates. // CONS bacteremia 07/17, m/l contaminant - TTE(-) SBE // Leukocytosis r/o infection - resolved, Cx NGTD - UA(-), CXR: CHF // Negative C.difficile // Hypotension - resolved // Generalized weakness - CT Head: No acute intracranial bleed, mass effect or edema. Moderate atrophy of the brain. Evidence of chronic small vessel disease involving white matter tracts // LUISA - improved // DM2 // Dementia // NKDA // Full Code PLAN: - monitor pt off of ABX ( 10/07 SP IV vancomycin, cefepime d# 5 / ) - monitor CBC, temperatures - monitor BMP - monitor CXR Subjective Constitutional: Denies: anorexia, chills, drenching sweats, fatigue, fever, no symptoms, other Allergies: Coded Allergies: No Known Allergies (Verified , 05/26/11) Objective Vital Signs Last 24 Hour Vital Signs Date Time Temp Pulse Resp B/P Pulse Ox O2 Delivery O2 Flow Rate FiO2 10/09/16 09:10 113 10/09/16 09:05 109 10/09/16 09:00 96 10/09/16 08:08 96.8 91 18 113/58 96 Nasal Cannula 2.0 10/09/16 07:01 95 Nasal Cannula 2.0 10/09/16 07:01 Nasal Cannula 2.0 10/09/16 04:00 97.7 79 18 121/83 92 Nasal Cannula 2.0 10/09/16 00:00 97.7 63 22 128/85 93 Nasal Cannula 4.0 10/08/16 21:46 Nasal Cannula 2.0 28 10/08/16 21:45 96 Nasal Cannula 2.0 10/08/16 20:00 97.0 85 20 120/68 93 Room Air 10/08/16 16:00 98.2 78 20 114/75 92 Room Air 10/08/16 12:55 97.0 77 19 130/72 93 Room Air 10/08/16 10:43 91 Room Air 21 10/08/16 09:45 91 97 Height (Feet): 5 Height (Inches): 2.00 Weight (Pounds): 229 HEENT: anicteric Respiratory/Chest: normal breath sounds Cardiovascular: regular rhythm Abdomen: no organomegaly Current Medications Medications (Trade) Dose Ordered Sig/Dean Route PRN Reason Start Time Stop Time Status Last Admin Dose Admin Acetaminophen (Tylenol) 650 mg Q4H PRN ORAL Fever/Headache/Mild Pain 10/04/16 22:06 11/03/16 22:05 Al Hydroxide/Mg Hydroxide (Mylanta II) 30 ml Q6H PRN ORAL dyspepsia 10/04/16 22:00 11/03/16 21:59 Albuterol/ Ipratropium (DuoNeb 0.5-3(2.5)mg/3ml) 3 ml Q4H PRN HHN Shortness of Breath 10/04/16 22:09 10/09/16 22:08 Dextrose (Dextrose 50%) STAT PRN IV Hypoglycemia 10/04/16 22:07 11/03/16 22:06 Heparin Sodium (Porcine) (Heparin 5000 units/ml) 5,000 units EVERY 12 HOURS SUBQ 10/05/16 09:00 11/04/16 08:59 10/09/16 08:36 Insulin Aspart (NovoLOG) BEFORE MEALS AND HS SUBQ 10/05/16 06:30 11/04/16 06:29 10/09/16 06:15 Insulin Aspart (NovoLOG) 8 units NOVOTIAC SUBQ 10/08/16 11:50 11/07/16 11:49 10/09/16 06:14 Insulin Detemir (Levemir) 24 units DAILY SUBQ 10/08/16 09:00 11/07/16 08:59 10/09/16 08:35 Levothyroxine Sodium (Synthroid) 75 mcg DAILY@0630 ORAL 10/08/16 09:00 11/07/16 08:59 10/09/16 06:15 Nitroglycerin (Ntg) 0.4 mg Q5M PRN SL Prn Chest Pain 10/04/16 22:00 11/03/16 21:59 Ondansetron HCl (Zofran) 4 mg Q6H PRN IVP Nausea & Vomiting 10/04/16 22:00 11/03/16 21:59 Polyethylene Glycol (Miralax) 17 gm DAILYPRN PRN ORAL Constipation 10/04/16 22:10 4/23/17 22:09 Promethazine HCl/ Codeine (Phenergan with Codeine) 5 ml Q4H PRN ORAL For Cough 10/04/16 22:10 11/03/16 22:09 10/06/16 18:23 Temazepam (Restoril) 15 mg HSPRN PRN ORAL Insomnia 10/05/16 21:00 10/12/16 20:59 KARLY LOWE M.D. Oct 09, 2016 09:32
[2016-10-09 12:00] VITALS: BP 110/67
[2016-10-09 16:00] VITALS: BP 120/52
--- NOTE | 2016-10-10 17:51 | Discharge Summary ---
Discharge Summary Hospital Course Date of Admission Oct 02, 2016 at 12:16 Date of Discharge Oct 09, 2016 at 17:45 Admitting Diagnosis CHF, HYPOTENSION HPI Brandi Gutierrez is a 81 year old female who was admitted on Oct 02, 2016 at 12:16 for Congestive Heart Failure Hypotension Hospital Course [id number] Discharge Discharge Disposition Patient was discharged to Home (01) Discharge Diagnoses: Divya Quezada NP Oct 10, 2016 17:51
--- NOTE | 2016-10-11 01:58 | Discharge Summary 2 SIG ---
DATE OF ADMISSION: 10/02/2016 DATE OF DISCHARGE: 10/09/2016 CONSULTANTS: 1. Marino Diallo M.D. 2. Herberth Celestin M.D. 3. James Mckeon M.D. BRIEF HOSPITAL COURSE: The patient is an 81-year-old female with history of diabetes mellitus and hypertension, brought in by paramedics for weakness and low blood pressure. Systolic was in the 70s. Paramedics were then called in. EMS confirmed hypotension in the field, but improved en route to the hospital. On evaluation at ED, labs showed acute kidney injury with leukocytosis. Chest x-ray with bilateral pulmonary congestion, and urine toxicology was positive for opiates. The patient had an episode of altered mental status in the morning likely related to possible accidental opiate overdose. She was admitted to Medical/Surgical. Dr. Diallo was consulted for evaluation of leukocytosis with left shift. Urinalysis benign. C. difficile toxin was negative. She was started empirically on IV vancomycin and cefepime. CT of the head showed no acute findings with moderate atrophy. Sputum culture showed normal respiratory vj. Blood culture was positive /, most likely contaminant. She was taken off of antibiotic treatment and was monitored off antibiotics. Dr. Celestin was consulted. EKG was sinus rhythm with nonspecific ST to T-wave abnormality. Troponin has been negative. Blood pressure improved with IV hydration. Echocardiogram done showed normal left ventricular size, function, and wall motion. Ejection fraction was estimated to be grossly normal with moderate left ventricular hypertrophy. Dr. Mckeon was consulted for diabetes management. Glipizide was discontinued and was started on Levemir and NovoLog and continued on levothyroxine 75 mcg daily. Leukocytosis resolved. There was no clinical findings of congestive heart failure. The patient was eventually discharged home. FINAL DIAGNOSES: 1. Acute toxic encephalopathy, resolved. 2. Hypotension, resolved with fluid resuscitation. 3. Renal insufficiency/acute kidney injury. 4. Possible bronchitis. 5. Bacteremia, most likely contaminant. 6. Diabetes mellitus type 2, out of control. 7. Dementia. 8. Hypothyroidism. 9. Pneumonia. Mirali Zarrabi, M.D. I have been assigned to dictate discharge summary on this account and I was not involved in the patient's management. Divya Quezada N.P. DR: CROW JOB#: [id number] CC: JM
--- NOTE | 2016-10-16 10:35 | Diagnostic Imaging Report ---
APPROVED REPORT CPT Code: 07336 Present Symptoms Shortness of breath BILATERAL: Imaging reveals a patent deep venous system bilaterally. There is no evidence of thrombus within the femoral, popliteal or tibial segments. The greater saphenous veins are also within normal limits. Doppler indicates normal spontaneous flow within these segments.
== END 2016-10-09 17:45 | disposition home health service (06) | DRG 139 ==
LOC: EDBD 10:52 → EMR 11:16 → 4W 12:16 → UNDOADMIN 12:16 → 2E 12:16 → EDBEDREQ 13:26 → 2E 16:32 → 4W 10-04 19:34
DX: J18.9 Pneumonia, unspecified organism (principal); G92 Toxic encephalopathy; N17.9 Acute kidney failure, unspecified; I95.9 Hypotension, unspecified; E11.65 Type 2 diabetes mellitus with hyperglycemia; F03.90 Unspecified dementia, unspecified severity, without behavioral disturbance, psychotic disturbance, mood disturbance, and anxiety; J40 Bronchitis, not specified as acute or chronic; I10 Essential (primary) hypertension; E03.9 Hypothyroidism, unspecified; E78.5 Hyperlipidemia, unspecified; E66.9 Obesity, unspecified; Z79.4 Long term (current) use of insulin; T40.601A Poisoning by unspecified narcotics, accidental (unintentional), initial encounter
CPT/HCPCS: 36415; 70450; 71010; 80053; 80069; 80202; 80300; 81003; 82550; 82553; 82962; 83690; 83880; 84439; 84443; 84484; 85007; 85025; 87040; 87070; 87181; 87205; 87324; 93005; 93306; 93970; 94664; 94760; J1815; J7620; J8499; S5561

== ENCOUNTER 2017-09-17 12:10 | Emergency (ER) | payer OTHER ==
[~2017-09-17] VITALS: Ht 167.6 cm; Wt 99.8 kg
[~2017-09-17 12:10] MED LIST changes: +ACETAMINOPHEN120 MG RECTAL; +ACETAMINOPHEN325 M3 PO; +ASPIR 8181 MG ORAL; +ASPIRIN81 MG ORAL; +ATORVASTATIN CA40 MG ORAL; +DONEPEZIL HCL10 MG ORAL; +DULCOLAX10 MG RC; +FAMOTIDINE20 MG ORAL; +GLIPIZIDE5 MG ORAL; +HYOSCYAMINE0.125 MG PO; +LANTUS SOL100 UNIT/1 SUBQ; +NAMENDA5 MG ORAL; +SENNA LAX8.6 MG PO; +TRAZODONE HCL100 MG ORAL; +VITAMIN D1000 UNI1 ORAL
[2017-09-17] MEDS ORDERED: Sodium Chloride 500ML 500 ML IV ONE (12:33)
[2017-09-17 12:40] VITALS: BP 153/99
[2017-09-17] MEDS ORDERED: XARELTO10 MG ORAL (13:02)
[2017-09-17] MEDS ORDERED: Zosyn 3.375gm inj ONE (13:14)
[2017-09-17] MEDS ORDERED: Piperacillin/Tazobactam 3.375 GM in NS 110 ML IVPB ONE (13:15)
[2017-09-17] MEDS ORDERED: Azithromycin 500 MG in NS 275 ML IV ONE (13:15)
[2017-09-17 13:20] LABS: BASOPHILS % (AUTO) 1.3 % (0.0-2.0); HEMATOCRIT 39.1 % (37.0-47.0); HEMOGLOBIN 13.1 G/DL (12.0-16.0); LYMPHOCYTES % (AUTO) 24.4 % (20.0-45.0); MEAN CORPUSCULAR VOLUME 90 FL (80-99); MONOCYTES % (AUTO) 5.3 % (1.0-10.0); PLATELET COUNT 399 K/UL (150-450); RED BLOOD COUNT 4.34 M/UL (4.20-5.40); RED CELL DISTRIBUTION WIDTH 12.5 % (11.6-14.8); WHITE BLOOD COUNT 10.5 K/UL (4.8-10.8)
--- NOTE | 2017-09-17 13:25 | Diagnostic Imaging Report ---
Indication: Dyspnea Comparison: 10/07/2016 A single view chest radiograph was obtained. Findings: Increasing infiltrate versus pulmonary edema with a patchy distribution demonstrated. Please correlate clinically. The heart is enlarged. Bones are osteopenic. IMPRESSION: Patchy pulmonary edema versus infiltrate. Please correlate clinically
[2017-09-17] MEDS ORDERED: Azithromycin 500mg Inj IV ONE (13:26)
[2017-09-17 15:02] LABS: ANION GAP 8 mmol/L (5-15); BLOOD UREA NITROGEN 18 mg/dL (7-18); CALCIUM 8.3 MG/DL (8.5-10.1); CARBON DIOXIDE 27 MMOL/L (21-32); CHLORIDE 98 MMOL/L (98-107); POTASSIUM 5.7 MMOL/L (3.5-5.1); SODIUM 133 MMOL/L (136-145)
[2017-09-17 15:16] LABS: ALBUMIN 2.1 G/DL (3.4-5.0); ALBUMIN/GLOBULIN RATIO 0.4 (1.0-2.7); ALKALINE PHOSPHATASE 75 U/L (46-116); ASPARTATE AMINO TRANSFERASE 75 U/L (15-37); BILIRUBIN,TOTAL 0.6 MG/DL (0.2-1.0); CREATINE KINASE 221 U/L (26-308)
[2017-09-17 15:27] VITALS: BP 141/91
[2017-09-17 15:32] LABS: ALANINE AMINOTRANSFERASE 17 U/L (12-78)
[2017-09-17] MEDS ORDERED: Sodium Polystyrene Sulfonate 15gm Powder ORAL ONE (16:00)
--- NOTE | 2017-09-17 16:19 | Emergency Room Report ---
History of Present Illness General Chief Complaint: Dyspnea/Respdistress Source: Patient, Medical Record Present Illness HPI 82-year-old female presents ED for evaluation. Presenting with shortness of breath 1 day. Per EMS patient was wheezing and given breathing treatments. Breathing improved here. Significant crackles noted on exam. Has dementia unable to provide any additional history at this time. No signs of distress upon arrival. No reported fevers or chills. No reported chest pain. No other aggravating relieving factors. No other associated symptoms Allergies: Coded Allergies: No Known Allergies (Verified , 05/26/11) Patient History Past Medical History: DM, HTN, COPD, dementia Past Surgical History: none Pertinent Family History: none Social History: Denies: smoking, alcohol use, drug use Now: No Immunizations: UTD Reviewed Nursing Documentation: PMH: Agreed, PSxH: Agreed Nursing Documentation-PMH Hx Cardiac Problems: Yes - cholesterol Hx Hypertension: Yes Hx COPD: Yes Hx Diabetes: Yes Hx Dementia: Yes Review of Systems All Other Systems: limited Physical Exam Vital Signs Date Time Temp Pulse Resp B/P (MAP) Pulse Ox O2 Delivery O2 Flow Rate FiO2 09/17/17 12:04 97.0 100 24 153/99 97 Simple Mask 8.0 97.0 Sp02 EP Interpretation: reviewed, normal General Appearance: no apparent distress, alert, GCS 15, non-toxic Head: normocephalic, atraumatic Eyes: bilateral eye normal inspection, bilateral eye PERRL ENT: hearing grossly normal, normal pharynx, no angioedema, normal voice Neck: full range of motion, supple/symm/no masses Respiratory: chest non-tender, crackles, speaking full sentences Cardiovascular #1: regular rate, rhythm, no edema Cardiovascular #2: 2+ carotid (R), 2+ carotid (L), 2+ radial (R), 2+ radial (L) , 2+ dorsalis pedis (R), 2+ dorsalis pedis (L) Gastrointestinal: normal bowel sounds, non tender, soft, non-distended, no guarding, no rebound Rectal: deferred Genitourinary: normal inspection, no CVA tenderness Musculoskeletal: back normal, gait/station normal, normal range of motion, non- tender Neurologic: alert, motor strength/tone normal, sensory intact, speech normal Psychiatric: no suicidal/homicidal ideation Reflexes: 3+ bicep (R), 3+ bicep (L), 3+ tricep (R), 3+ tricep (L), 3+ knee (R) , 3+ knee (L) Skin: normal color, no rash, warm/dry, well hydrated Lymphatic: no adenopathy Medical Decision Making Diagnostic Impression: Primary Impression: Dyspnea Qualified Codes: R06.00 - Dyspnea, unspecified Additional Impressions: CHF exacerbation Qualified Codes: I50.9 - Heart failure, unspecified Hyperkalemia Pneumonia Qualified Codes: J18.9 - Pneumonia, unspecified organism ER Course Hospital Course 82-year-old female presents ED complaining of shortness of breath Differential diagnoses include: GA/unstable angina, contusion, muscle strain, PTX, rib fracture Clinical course Patient placed on stretcher. on tissue technologist. After initial history and physical I ordered labs, EKG, chest x-ray labs reviewed- no leukocytosis, hemoglobin/hematocrit stable, K 5.7, BNP > 3000 , trop negative EKG - afib with RVR, no acute ischemic changes interpreted by me Chest x-ray- bilateral pulmonary patches vs infiltrate Antibiotics given. Lasix given. Kayexelate given because of insurance patient will be transferred I. I feel this is a highly complex case requiring extensive working including EKG/Rhythm strip, Xray/CT/US, Blood/urine lab work, repeat exams while in ED, and administration of strong opiates/narcotics for pain control, admission to hospital or close patient follow up. Diagnosis - CHF exacerbation, dyspnea, hyperkalemia, pneumonia transferred in serious condition Labs Test 09/17/17 13:05 09/17/17 14:16 White Blood Count 10.5 K/UL (4.8-10.8) Red Blood Count 4.34 M/UL (4.20-5.40) Hemoglobin 13.1 G/DL (12.0-16.0) Hematocrit 39.1 % (37.0-47.0) Mean Corpuscular Volume 90 FL (80-99) Mean Corpuscular Hemoglobin 30.2 PG (27.0-31.0) Mean Corpuscular Hemoglobin Concent 33.6 G/DL (32.0-36.0) Red Cell Distribution Width 12.5 % (11.6-14.8) Platelet Count 399 K/UL (150-450) Mean Platelet Volume 6.9 FL (6.5-10.1) Neutrophils (%) (Auto) 66.0 % (45.0-75.0) Lymphocytes (%) (Auto) 24.4 % (20.0-45.0) Monocytes (%) (Auto) 5.3 % (1.0-10.0) Eosinophils (%) (Auto) 3.0 % (0.0-3.0) Basophils (%) (Auto) 1.3 % (0.0-2.0) Lactic Acid Level 2.40 mmol/L (0.66-2.22) 2.30 mmol/L (0.66-2.22) Sodium Level 133 MMOL/L (136-145) Potassium Level 5.7 MMOL/L (3.5-5.1) Chloride Level 98 MMOL/L (98-107) Carbon Dioxide Level 27 MMOL/L (21-32) Anion Gap 8 mmol/L (5-15) Blood Urea Nitrogen 18 mg/dL (7-18) Creatinine 1.0 MG/DL (0.55-1.30) Estimat Glomerular Filtration Rate mL/min (>60) Glucose Level 247 MG/DL (74-106) Calcium Level 8.3 MG/DL (8.5-10.1) Total Bilirubin 0.6 MG/DL (0.2-1.0) Aspartate Amino Transf (AST/SGOT) 75 U/L (15-37) Alanine Aminotransferase (ALT/SGPT) 17 U/L (12-78) Alkaline Phosphatase 75 U/L (46-116) Total Creatine Kinase 221 U/L (26-308) Creatine Kinase MB 2.0 NG/ML (0.0-3.6) Creatine Kinase MB Relative Index 0.9 Troponin I 0.015 ng/mL (0.000-0.056) Pro-B-Type Natriuretic Peptide 4551 pg/mL (0-125) Total Protein 7.1 G/DL (6.4-8.2) Albumin 2.1 G/DL (3.4-5.0) Globulin 5.0 g/dL Albumin/Globulin Ratio 0.4 (1.0-2.7) EKG Diagnostic Results Rate: tachycardiac Rhythm: other - afib ST Segments: no acute changes ASA given to the pt in ED: No Rhythm Strip Diag. Results EP Interpretation: yes Rhythm: no PVC's, no ectopy Chest X-Ray Diagnostic Results Chest X-Ray Diagnostic Results : Chest X-Ray Ordered: Yes # of Views/Limited/Complete: 1 View Indication: Shortness of Breath EP Interpretation: Yes Interpretation: no pneumothorax, other - bialteral patchy edema vs infiltrate Impression: Other - chf vs pneumonia Electronically Signed by: Electronically signed by Fred Burns MD Last Vital Signs Date Time Temp Pulse Resp B/P (MAP) Pulse Ox O2 Delivery O2 Flow Rate FiO2 09/17/17 15:27 97.0 24 141/91 97 Simple Mask 8.0 97.0 09/17/17 12:40 100 Status: improved Disposition: XFER SHT-TRM HOSP Condition: Serious Referrals: [facility]ERR[facility] (PCP) FRED BURNS M.D. Sep 17, 2017 16:19
--- NOTE | 2017-09-21 16:24 | Cardiology Report ---
APPROVED REPORT EKG Measurement Heart [id number] Atrial fibrillation with RVR Abnormal ECG
== END 2017-09-17 16:04 | disposition short-term general hospital (02) ==
LOC: EDBD 12:10 → EMR 12:41
DX: I11.0 Hypertensive heart disease with heart failure (principal); I50.9 Heart failure, unspecified; E87.5 Hyperkalemia; J18.9 Pneumonia, unspecified organism; E11.9 Type 2 diabetes mellitus without complications; J44.9 Chronic obstructive pulmonary disease, unspecified; F03.90 Unspecified dementia, unspecified severity, without behavioral disturbance, psychotic disturbance, mood disturbance, and anxiety
CPT/HCPCS: 36415; 71045; 80053; 82550; 82553; 83605; 83880; 84484; 85025; 87040; 93005; 96374; 96375; 99285; J0456; J1940; J2543; J7040; J7050

== ENCOUNTER 2017-10-10 15:40 | Emergency (ER) | payer OTHER ==
[~2017-10-10] VITALS: Ht 154.9 cm; Wt 77.1 kg
[~2017-10-10 15:40] MED LIST changes: +XARELTO10 MG ORAL
[2017-10-10] MEDS ORDERED: FUROSEMIDE20 M1 ORAL (16:27)
[2017-10-10 16:30] VITALS: BP 114/56
--- NOTE | 2017-10-10 16:32 | Emergency Room Report ---
History of Present Illness General Chief Complaint: Abnormal Labs Source: Patient, Medical Record Present Illness HPI Patient started feeling weak and dizzy today. She ran out of her insulin. Her blood sugars have been high at home. She denies any pain but has had some dyspnea on exertion and some shortness of breath. The dizziness is associated with weakness. She's been eating without any trouble. Her stools have been dark according to her but she has not really looked at them very well. She denies any diarrhea. She denies fevers, chills, nausea, vomiting. She denies dysuria. There is no calf pain or leg swelling recently. The patient has a history of an irregular heartbeat and takes aspirin without any other anticoagulants according to her son. In triage the patient's oxygen was low. She has a mild nonproductive cough. The patient also has a history of anemia. They are saying that control of this has been difficult to obtain. The patient was seen here September 17 with similar complaints. She was diagnosed with either pneumonia or congestive heart failure. She was transferred to another hospital. There is a history of mild dementia. (Her is here being evaluated for syncope.) Allergies: Coded Allergies: No Known Allergies (Verified , 05/26/11) Patient History Past Medical History: see triage record Social History: Denies: smoking, alcohol use, drug use Social History Narrative Born [facility] Reviewed Nursing Documentation: PMH: Agreed; PSxH: Agreed Nursing Documentation-PM Past Medical History: No History, Except For Hx Cardiac Problems: Yes - cholesterol Hx Hypertension: Yes Hx COPD: Yes Hx Diabetes: Yes Hx Neurological Problems: Yes - mild dementia Hx Dementia: Yes Review of Systems All Other Systems: negative except mentioned in HPI Physical Exam Vital Signs Date Time Temp Pulse Resp B/P (MAP) Pulse Ox O2 Delivery O2 Flow Rate FiO2 10/10/17 15:46 98.1 60 18 126/72 88 Room Air 98.1 Sp02 EP Interpretation: reviewed, abnormal - low as interpreted by me General Appearance: well appearing, no apparent distress, GCS 15 Head: normocephalic Eyes: bilateral eye normal inspection, bilateral eye PERRL ENT: moist mucus membranes Neck: supple Respiratory: no respiratory distress, decreased breath sounds Cardiovascular #1: regular rate, rhythm, edema Cardiovascular #2: 2+ radial (R) Gastrointestinal: normal inspection, normal bowel sounds, non tender, no mass, non-distended, overweight Musculoskeletal: back normal, normal range of motion Neurologic: alert, grossly normal, oriented - X2 Psychiatric: mood/affect normal Skin: warm/dry, pallor Medical Decision Making Diagnostic Impression: Primary Impression: Hypoxia Additional Impressions: Congestive heart failure Qualified Codes: I50.41 - Acute combined systolic (congestive) and diastolic ( congestive) heart failure Hypothyroid Qualified Codes: E03.9 - Hypothyroidism, unspecified UTI (urinary tract infection) Qualified Codes: N30.00 - Acute cystitis without hematuria Hyperglycemia ER Course Patient presents with alleged hyperglycemia and running out of insulin but is found to have hypoxia. Differential includes CHF, pulmonary embolus, acute myocardial infarction, pneumonia amongst others. The patient is in no distress but her oxygen saturation is quite low. Evaluation will be with EKG, chest x- ray and labs. Base on the x-ray shows she may require diuretics. Her initial blood sugar was not extremely high. EKG shows heart rate of [address]-T wave changes. Chest x-ray shows pulmonary edema and congestive heart failure without infiltrates. Lasix is given and also the patient has a Tillman placed. Patient also has pyuria. Rocephin is begun. The patient O2 saturation is better with oxygen. TSH is elevated. Troponin is negative. She is diuresing after lasix. She stable for transfer. The patient was presented to Dr. Zuluaga. He accepted the patient in transfer. Laboratory Tests Test 10/10/17 16:35 10/10/17 16:40 White Blood Count 8.4 K/UL (4.8-10.8) Red Blood Count 4.49 M/UL (4.20-5.40) Hemoglobin 12.5 G/DL (12.0-16.0) Hematocrit 39.7 % (37.0-47.0) Mean Corpuscular Volume 88 FL (80-99) Mean Corpuscular Hemoglobin 27.9 PG (27.0-31.0) Mean Corpuscular Hemoglobin Concent 31.6 G/DL (32.0-36.0) L Red Cell Distribution Width 14.1 % (11.6-14.8) Platelet Count 274 K/UL (150-450) Mean Platelet Volume 6.9 FL (6.5-10.1) Neutrophils (%) (Auto) 52.1 % (45.0-75.0) Lymphocytes (%) (Auto) 28.3 % (20.0-45.0) Monocytes (%) (Auto) 6.3 % (1.0-10.0) Eosinophils (%) (Auto) 11.6 % (0.0-3.0) H Basophils (%) (Auto) 1.7 % (0.0-2.0) Prothrombin Time 12.2 SEC (9.30-11.50) H Prothrombin Time INR 1.2 (0.9-1.1) H PTT 48 SEC (23-33) H Sodium Level 139 MMOL/L (136-145) Potassium Level 4.7 MMOL/L (3.5-5.1) Chloride Level 101 MMOL/L (98-107) Carbon Dioxide Level 34 MMOL/L (21-32) H Anion Gap 4 mmol/L (5-15) L Blood Urea Nitrogen 16 mg/dL (7-18) Creatinine 1.2 MG/DL (0.55-1.30) Estimate Glomerular Filtration Rate mL/min (>60) Glucose Level 212 MG/DL (74-106) H Lactic Acid Level 0.90 mmol/L (0.66-2.22) Calcium Level 8.5 MG/DL (8.5-10.1) Total Bilirubin 0.4 MG/DL (0.2-1.0) Aspartate Amino Transferase (AST) 19 U/L (15-37) Alanine Aminotransferase (ALT) 14 U/L (12-78) Alkaline Phosphatase 56 U/L (46-116) Total Creatine Kinase 39 U/L (26-308) Troponin I 0.006 ng/mL (0.000-0.056) Pro-B-Type Natriuretic Peptide 994 pg/mL (0-125) H Total Protein 7.0 G/DL (6.4-8.2) Albumin 2.9 G/DL (3.4-5.0) L Globulin 4.1 g/dL Albumin/Globulin Ratio 0.7 (1.0-2.7) L Thyroid Stimulating Hormone (TSH) 6.951 uiU/mL (0.358-3.740) Urine Color Pale yellow Urine Appearance Slightly cloudy Urine pH 5 (4.5-8.0) Urine Specific [place] 1.015 (1.005-1.035) Urine Protein 1+ (NEGATIVE) H Urine Glucose (UA) Negative (NEGATIVE) Urine Ketones Negative (NEGATIVE) Urine Occult Blood 2+ (NEGATIVE) H Urine Nitrite Negative (NEGATIVE) Urine Bilirubin Negative (NEGATIVE) Urine Urobilinogen Normal MG/DL (0.0-1.0) Urine Leukocyte Esterase 3+ (NEGATIVE) H Urine RBC 5-10 /HPF (0 - 2) H Urine WBC 10-15 /HPF (0 - 2) H Urine Squamous Epithelial Cells Many /LPF (NONE/OCC) H Urine Bacteria Moderate /HPF (NONE) H EKG Diagnostic Results Rate: normal Rhythm: NSR ST Segments: other - NSSTTW changes Rhythm Strip Diag. Results EP Interpretation: yes Rhythm: NSR, no PVC's, no ectopy Chest X-Ray Diagnostic Results Chest X-Ray Diagnostic Results : Chest X-Ray Ordered: Yes # of Views/Limited/Complete: 1 View Indication: Shortness of Breath EP Interpretation: Yes Interpretation: no pneumothorax, other - chf, possible effusion R Impression: Other Electronically Signed by: Electronically signed by Surinder Abrams MD Last Vital Signs Date Time Temp Pulse Resp B/P (MAP) Pulse Ox O2 Delivery O2 Flow Rate FiO2 10/10/17 19:24 98.1 68 18 105/69 96 Room Air 1.0 98.1 Status: improved Disposition: XFER SHT-TRM HOSP Condition: Serious - but stable for transfer Surinder Abrams M.D. Oct 10, 2017 16:32
[2017-10-10 17:01] LABS: BASOPHILS % (AUTO) 1.7 % (0.0-2.0); EOSINOPHILS % (AUTO) 11.6 % (0.0-3.0); HEMATOCRIT 39.7 % (37.0-47.0); HEMOGLOBIN 12.5 G/DL (12.0-16.0); LYMPHOCYTES % (AUTO) 28.3 % (20.0-45.0); MEAN CORPUSCULAR VOLUME 88 FL (80-99); MONOCYTES % (AUTO) 6.3 % (1.0-10.0); NEUTROPHILS % (AUTO) 52.1 % (45.0-75.0); PLATELET COUNT 274 K/UL (150-450); RED BLOOD COUNT 4.49 M/UL (4.20-5.40); RED CELL DISTRIBUTION WIDTH 14.1 % (11.6-14.8); WHITE BLOOD COUNT 8.4 K/UL (4.8-10.8)
[2017-10-10 17:03] LABS: APPEARANCE,URINE SLIGHTLY CLOUDY; BILIRUBIN, URINE NEGATIVE (NEGATIVE); COLOR,URINE PALE YELLOW; GLUCOSE, URINE (UA) NEGATIVE (NEGATIVE); KETONES,URINE NEGATIVE (NEGATIVE); LEUKOCYTE ESTERASE ,URINE 3+ (NEGATIVE); NITRITE,URINE NEGATIVE (NEGATIVE); PH,URINE 5 (4.5-8.0); PROTEIN,URINE 1+ (NEGATIVE); UROBILINOGEN,URINE NORMAL MG/DL (0.0-1.0)
[2017-10-10 17:11] LABS: INR 1.2 (0.9-1.1)
[2017-10-10 17:16] LABS: ANION GAP 4 mmol/L (5-15); BLOOD UREA NITROGEN 16 mg/dL (7-18); CALCIUM 8.5 MG/DL (8.5-10.1); CARBON DIOXIDE 34 MMOL/L (21-32); CHLORIDE 101 MMOL/L (98-107); CREATININE 1.2 MG/DL (0.55-1.30); POTASSIUM 4.7 MMOL/L (3.5-5.1); SODIUM 139 MMOL/L (136-145)
--- NOTE | 2017-10-10 17:18 | Diagnostic Imaging Report ---
Indication: Dyspnea Technique: XRAY Chest 1v Comparison: 09/17/2017 Findings: Heart size and mediastinal contours are stable. Are low lung volumes with increased interstitial markings and patchy bilateral airspace opacities. These findings are similar compared to the prior exam. There is no pleural effusion or pneumothorax. IMPRESSION: Low lung volumes with bilateral interstitial and airspace opacities. Findings are similar compared to the prior exam of 09/17/2017. Findings may be related to pulmonary edema or chronic interstitial lung disease with areas of fibrosis. Superimposed pneumonia not entirely excluded. Clinical correlation recommended. CT of the chest may be helpful for further evaluation.
[2017-10-10 17:28] LABS: ALANINE AMINOTRANSFERASE 14 U/L (12-78); ALBUMIN 2.9 G/DL (3.4-5.0); ALBUMIN/GLOBULIN RATIO 0.7 (1.0-2.7); ALKALINE PHOSPHATASE 56 U/L (46-116); ASPARTATE AMINO TRANSFERASE 19 U/L (15-37); BILIRUBIN,TOTAL 0.4 MG/DL (0.2-1.0); CREATINE KINASE 39 U/L (26-308)
[2017-10-10] MEDS ORDERED: cefTRIAXone 1 GM in NS 55 ML IVPB ONE (18:45)
[2017-10-10 19:02] VITALS: BP 105/69
[2017-10-10 19:24] VITALS: BP 105/69
--- NOTE | 2017-10-11 18:08 | Cardiology Report ---
APPROVED REPORT EKG Measurement Heart [id number] Normal sinus rhythm Nonspecific T wave abnormality Abnormal ECG
== END 2017-10-10 19:36 | disposition short-term general hospital (02) ==
LOC: EMR 17:00 → EDBEDREQ 17:34 → EMR 19:36
DX: R09.02 Hypoxemia (principal); I11.0 Hypertensive heart disease with heart failure; I50.9 Heart failure, unspecified; E03.9 Hypothyroidism, unspecified; N39.0 Urinary tract infection, site not specified; E11.65 Type 2 diabetes mellitus with hyperglycemia; F03.90 Unspecified dementia, unspecified severity, without behavioral disturbance, psychotic disturbance, mood disturbance, and anxiety
CPT/HCPCS: 36415; 71045; 80053; 81003; 82550; 82962; 83605; 83880; 84443; 84484; 85025; 85610; 85730; 87040; 87081; 87086; 93005; 96361; 96374; 99285; J0696; J1940

== ENCOUNTER 2017-12-23 23:42 | Emergency (ER) | payer OTHER ==
[~2017-12-23] VITALS: Ht 165.1 cm; Wt 95.3 kg
[~2017-12-23 23:42] MED LIST changes: +FUROSEMIDE20 M1 ORAL
[2017-12-24 00:22] LABS: BASOPHILS % (AUTO) 1.4 % (0.0-2.0); EOSINOPHILS % (AUTO) 3.8 % (0.0-3.0); HEMATOCRIT 37.4 % (37.0-47.0); HEMOGLOBIN 12.4 G/DL (12.0-16.0); MEAN CORPUSCULAR VOLUME 85 FL (80-99); MONOCYTES % (AUTO) 6.9 % (1.0-10.0); NEUTROPHILS % (AUTO) 73.9 % (45.0-75.0); PLATELET COUNT 232 K/UL (150-450); RED BLOOD COUNT 4.41 M/UL (4.20-5.40); RED CELL DISTRIBUTION WIDTH 13.4 % (11.6-14.8); WHITE BLOOD COUNT 11.7 K/UL (4.8-10.8)
[2017-12-24 00:22] LABS: APPEARANCE,URINE CLEAR; BILIRUBIN, URINE NEGATIVE (NEGATIVE); COLOR,URINE PALE YELLOW; GLUCOSE, URINE (UA) NEGATIVE (NEGATIVE); KETONES,URINE NEGATIVE (NEGATIVE); LEUKOCYTE ESTERASE ,URINE 1+ (NEGATIVE); NITRITE,URINE NEGATIVE (NEGATIVE); PH,URINE 6 (4.5-8.0); PROTEIN,URINE 2+ (NEGATIVE); UROBILINOGEN,URINE NORMAL MG/DL (0.0-1.0)
[2017-12-24 00:26] LABS: ANION GAP 5 mmol/L (5-15); BLOOD UREA NITROGEN 25 mg/dL (7-18); CARBON DIOXIDE 32 MMOL/L (21-32); CHLORIDE 94 MMOL/L (98-107); CREATININE 1.3 MG/DL (0.55-1.30); POTASSIUM 3.6 MMOL/L (3.5-5.1); SODIUM 131 MMOL/L (136-145)
[2017-12-24 00:48] LABS: ALANINE AMINOTRANSFERASE 20 U/L (12-78); ALBUMIN 3.4 G/DL (3.4-5.0); ALBUMIN/GLOBULIN RATIO 0.7 (1.0-2.7); ALKALINE PHOSPHATASE 57 U/L (46-116); ASPARTATE AMINO TRANSFERASE 22 U/L (15-37); BILIRUBIN,TOTAL 0.8 MG/DL (0.2-1.0); CKMB 1.3 NG/ML (0.0-3.6); CREATINE KINASE 84 U/L (26-308)
[2017-12-24 00:49] VITALS: BP 143/70
[2017-12-24] MEDS ORDERED: Azithromycin 500 MG in NS 275 ML IV ONE (01:00)
[2017-12-24] MEDS ORDERED: Piperacillin/Tazobactam 3.375 GM in NS 110 ML IVPB ONE (01:00)
--- NOTE | 2017-12-24 02:24 | Emergency Room Report ---
History of Present Illness General Chief Complaint: Abdominal Pain Source: Patient, Caregiver Present Illness HPI 82-year-old female presents ED for evaluation. EMS states that patient is here for abdominal pain. However patient denies any abdominal pain. Environmental Compliance Technician now at bedside and states that patient has been having shortness of breath for the last few weeks. Only on home oxygen but appears more short of breath than baseline. Increased leg swelling. O2 sats low on room air. Denies fevers or chills. Denies chest pain. No other aggravating relieving factors. Denies any other associated symptoms Allergies: Coded Allergies: No Known Allergies (Verified , 05/26/11) Patient History Past Medical History: DM, HTN, COPD, dementia Past Surgical History: none Pertinent Family History: none Social History: Denies: smoking, alcohol use, drug use Now: No Immunizations: UTD Reviewed Nursing Documentation: PMH: Agreed; PSxH: Agreed Nursing Documentation-PMH Hx Cardiac Problems: Yes - cholesterol Hx Hypertension: Yes Hx COPD: Yes Hx Diabetes: Yes Hx Neurological Problems: Yes - mild dementia Hx Dementia: Yes Review of Systems All Other Systems: negative except mentioned in HPI Physical Exam Vital Signs Date Time Temp Pulse Resp B/P (MAP) Pulse Ox O2 Delivery O2 Flow Rate FiO2 12/23/17 23:42 98.4 65 35 129/64 74 Room Air 98.4 12/23/17 23:52 4.0 Sp02 EP Interpretation: reviewed, normal General Appearance: no apparent distress, other - dementia Head: normocephalic, atraumatic Eyes: bilateral eye normal inspection, bilateral eye PERRL ENT: hearing grossly normal, normal pharynx, no angioedema, normal voice Neck: full range of motion, supple/symm/no masses Respiratory: chest non-tender, crackles, speaking full sentences Cardiovascular #1: regular rate, rhythm, no edema Cardiovascular #2: 2+ carotid (R), 2+ carotid (L), 2+ radial (R), 2+ radial (L) , 2+ dorsalis pedis (R), 2+ dorsalis pedis (L) Gastrointestinal: normal bowel sounds, non tender, soft, non-distended, no guarding, no rebound Rectal: deferred Genitourinary: normal inspection, no CVA tenderness Musculoskeletal: back normal, tender - 2+ pitting edema b/l LEs Neurologic: other - dementia Psychiatric: other - dementia Reflexes: 3+ bicep (R), 3+ bicep (L), 3+ tricep (R), 3+ tricep (L), 3+ knee (R) , 3+ knee (L) Skin: normal color, no rash, warm/dry, well hydrated Lymphatic: no adenopathy Medical Decision Making Diagnostic Impression: Primary Impression: CHF exacerbation Qualified Codes: I50.9 - Heart failure, unspecified Additional Impressions: Hypoxia Dementia ER Course Hospital Course 82-year-old female presents ED complaining of shortness of breath, leg swelling , low O2 sats Differential diagnoses include: IA/unstable angina, contusion, muscle strain, PTX, rib fracture Clinical course Patient placed on stretcher. on hall monitor. After initial history and physical I ordered labs, EKG, chest x-ray labs reviewed- noted leukocytosis, hemoglobin/hematocrit stable, electrolytes ok , BNP elevated, trop 0.000 EKG - NSR, no acute ischemic changes interpreted by me Chest x-ray- CHF/?PNA O2 sats improved on nasal cannula 4L Antibiotics given. Lasix given. Because of insurance patient will be transferred I. I feel this is a highly complex case requiring extensive working including EKG/Rhythm strip, Xray/CT/US, Blood/urine lab work, repeat exams while in ED, and administration of strong opiates/narcotics for pain control, admission to hospital or close patient follow up. Diagnosis - CHF exacerbation, hypoxia, dementia transferred in serious condition Labs Test 12/23/17 23:58 12/24/17 00:15 12/24/17 00:43 White Blood Count 11.7 K/UL (4.8-10.8) Red Blood Count 4.41 M/UL (4.20-5.40) Hemoglobin 12.4 G/DL (12.0-16.0) Hematocrit 37.4 % (37.0-47.0) Mean Corpuscular Volume 85 FL (80-99) Mean Corpuscular Hemoglobin 28.2 PG (27.0-31.0) Mean Corpuscular Hemoglobin Concent 33.3 G/DL (32.0-36.0) Red Cell Distribution Width 13.4 % (11.6-14.8) Platelet Count 232 K/UL (150-450) Mean Platelet Volume 6.8 FL (6.5-10.1) Neutrophils (%) (Auto) 73.9 % (45.0-75.0) Lymphocytes (%) (Auto) 14.0 % (20.0-45.0) Monocytes (%) (Auto) 6.9 % (1.0-10.0) Eosinophils (%) (Auto) 3.8 % (0.0-3.0) Basophils (%) (Auto) 1.4 % (0.0-2.0) Sodium Level 131 MMOL/L (136-145) Potassium Level 3.6 MMOL/L (3.5-5.1) Chloride Level 94 MMOL/L (98-107) Carbon Dioxide Level 32 MMOL/L (21-32) Anion Gap 5 mmol/L (5-15) Blood Urea Nitrogen 25 mg/dL (7-18) Creatinine 1.3 MG/DL (0.55-1.30) Estimat Glomerular Filtration Rate mL/min (>60) Glucose Level 236 MG/DL (74-106) Calcium Level 9.0 MG/DL (8.5-10.1) Total Bilirubin 0.8 MG/DL (0.2-1.0) Aspartate Amino Transf (AST/SGOT) 22 U/L (15-37) Alanine Aminotransferase (ALT/SGPT) 20 U/L (12-78) Alkaline Phosphatase 57 U/L (46-116) Total Creatine Kinase 84 U/L (26-308) Creatine Kinase MB 1.3 NG/ML (0.0-3.6) Creatine Kinase MB Relative Index 1.5 Troponin I 0.000 ng/mL (0.000-0.056) Pro-B-Type Natriuretic Peptide 2558 pg/mL (0-125) Total Protein 8.2 G/DL (6.4-8.2) Albumin 3.4 G/DL (3.4-5.0) Globulin 4.8 g/dL Albumin/Globulin Ratio 0.7 (1.0-2.7) Lipase 88 U/L (73-393) Urine Color Pale yellow Urine Appearance Clear Urine pH 6 (4.5-8.0) Urine Specific [place] 1.010 (1.005-1.035) Urine Protein 2+ (NEGATIVE) Urine Glucose (UA) Negative (NEGATIVE) Urine Ketones Negative (NEGATIVE) Urine Occult Blood 1+ (NEGATIVE) Urine Nitrite Negative (NEGATIVE) Urine Bilirubin Negative (NEGATIVE) Urine Urobilinogen Normal MG/DL (0.0-1.0) Urine Leukocyte Esterase 1+ (NEGATIVE) Urine RBC 0-2 /HPF (0 - 2) Urine WBC 0-2 /HPF (0 - 2) Urine Squamous Epithelial Cells Few /LPF (NONE/OCC) Urine Bacteria Few /HPF (NONE) Lactic Acid Level 1.10 mmol/L (0.4-2.0) EKG Diagnostic Results Rate: normal Rhythm: NSR ST Segments: no acute changes ASA given to the pt in ED: No Rhythm Strip Diag. Results EP Interpretation: yes Rhythm: NSR, no PVC's, no ectopy Chest X-Ray Diagnostic Results Chest X-Ray Diagnostic Results : Chest X-Ray Ordered: Yes # of Views/Limited/Complete: 1 View Indication: Shortness of Breath EP Interpretation: Yes Interpretation: no pneumothorax, other - chf/?infiltrate Impression: Other - chf/pna Electronically Signed by: Electronically signed by Fred uBrns MD Last Vital Signs Date Time Temp Pulse Resp B/P (MAP) Pulse Ox O2 Delivery O2 Flow Rate FiO2 12/24/17 00:49 60 24 143/70 99 Nasal Cannula 4.0 12/23/17 23:42 98.4 98.4 Status: improved Disposition: [facility]FER [facility] Condition: Serious Referrals: [facility]ERR[facility] (PCP) Fred Burns MD Dec 24, 2017 02:24
[2017-12-24 02:47] VITALS: BP 132/68
[2017-12-24 04:09] VITALS: BP 133/62
--- NOTE | 2017-12-24 10:12 | Diagnostic Imaging Report ---
Indication: Shortness of breath Technique: One view of the chest Comparison: none Findings: Extensive bilateral diffuse interstitial and airspace disease is noted, worst in the right upper lobe and left perihilar region. No definite effusions. Disease appears somewhat more extensive than on the previous study. The heart is probably enlarged, although the heart border is largely obscured Impression: Extensive diffuse bilateral parenchymal disease, consistent with infiltrates or edema. This is somewhat similar to the previous exam, however, so there may be a significant chronic component as well
--- NOTE | 2017-12-25 15:03 | Cardiology Report ---
APPROVED REPORT EKG Measurement Heart [id number] Normal sinus rhythm Nonspecific T wave abnormality Abnormal ECG
== END 2017-12-24 04:12 | disposition short-term general hospital (02) ==
LOC: EDBD 23:42 → EDUNIT# 23:42 → EMR 12-24 00:17
DX: I11.0 Hypertensive heart disease with heart failure (principal); I50.9 Heart failure, unspecified; J44.9 Chronic obstructive pulmonary disease, unspecified; E11.9 Type 2 diabetes mellitus without complications; F03.90 Unspecified dementia, unspecified severity, without behavioral disturbance, psychotic disturbance, mood disturbance, and anxiety
CPT/HCPCS: 36415; 71045; 80053; 81003; 82550; 82553; 83605; 83690; 83880; 84484; 85025; 87040; 93005; 96365; 96374; 99285; J0456; J1940; J2543; J7050

== ENCOUNTER 2017-12-31 15:54 | Emergency (ER) | payer OTHER ==
[~2017-12-31] VITALS: Ht 152.4 cm; Wt 81.6 kg
[2017-12-31 16:10] VITALS: BP 124/64
[2017-12-31 17:09] VITALS: BP 114/54
[2017-12-31 17:11] LABS: BASOPHILS % (AUTO) 1.3 % (0.0-2.0); EOSINOPHILS % (AUTO) 4.3 % (0.0-3.0); HEMATOCRIT 35.8 % (37.0-47.0); HEMOGLOBIN 11.8 G/DL (12.0-16.0); LYMPHOCYTES % (AUTO) 17.8 % (20.0-45.0); MEAN CORPUSCULAR VOLUME 88 FL (80-99); MONOCYTES % (AUTO) 6.5 % (1.0-10.0); NEUTROPHILS % (AUTO) 70.1 % (45.0-75.0); PLATELET COUNT 221 K/UL (150-450); RED BLOOD COUNT 4.09 M/UL (4.20-5.40); RED CELL DISTRIBUTION WIDTH 14.3 % (11.6-14.8); WHITE BLOOD COUNT 11.8 K/UL (4.8-10.8)
[2017-12-31 17:13] LABS: APPEARANCE,URINE CLEAR; BILIRUBIN, URINE NEGATIVE (NEGATIVE); COLOR,URINE PALE YELLOW; GLUCOSE, URINE (UA) NEGATIVE (NEGATIVE); KETONES,URINE NEGATIVE (NEGATIVE); LEUKOCYTE ESTERASE ,URINE NEGATIVE (NEGATIVE); NITRITE,URINE NEGATIVE (NEGATIVE); PH,URINE 6.5 (4.5-8.0); PROTEIN,URINE NEGATIVE (NEGATIVE); UROBILINOGEN,URINE NORMAL MG/DL (0.0-1.0)
[2017-12-31 17:21] LABS: BLOOD UREA NITROGEN 19 mg/dL (7-18); CALCIUM 9.3 MG/DL (8.5-10.1); CREATININE 1.2 MG/DL (0.55-1.30)
[2017-12-31 17:35] LABS: ALANINE AMINOTRANSFERASE 24 U/L (12-78); ALBUMIN 3.2 G/DL (3.4-5.0); ALBUMIN/GLOBULIN RATIO 0.7 (1.0-2.7); ALKALINE PHOSPHATASE 55 U/L (46-116); ASPARTATE AMINO TRANSFERASE 24 U/L (15-37); BILIRUBIN,TOTAL 0.7 MG/DL (0.2-1.0); CKMB 1.4 NG/ML (0.0-3.6); CREATINE KINASE 74 U/L (26-308)
[2017-12-31 17:38] LABS: ANION GAP 2 mmol/L (5-15); CARBON DIOXIDE 38 MMOL/L (21-32); CHLORIDE 95 MMOL/L (98-107); POTASSIUM 4.1 MMOL/L (3.5-5.1); SODIUM 135 MMOL/L (136-145)
[2017-12-31 19:13] VITALS: BP 130/68
--- NOTE | 2017-12-31 19:19 | Emergency Room Report ---
History of Present Illness General Chief Complaint: Dyspnea/Respdistress Source: EMS Present Illness HPI 82-year-old female presents ED complaining of shortness of breath. Patient's complaining of shortness of breath since last night. Was discharged yesterday from another hospital. States she was not feeling better upon discharge. Patient called 911 today she felt short of breath. On home oxygen. History of CHF. Denies chest pain. Denies fevers or chills. No other aggravating relieving factors. Denies any other associated symptoms Allergies: Coded Allergies: No Known Allergies (Verified , 05/26/11) Patient History Past Medical History: DM, HTN, COPD, dementia Past Surgical History: none Pertinent Family History: none Social History: Denies: smoking, alcohol use, drug use Last Menstrual Period: Unk Now: No Immunizations: UTD Reviewed Nursing Documentation: PMH: Agreed; PSxH: Agreed Nursing Documentation-PMH Hx Cardiac Problems: Yes - CHF Hx Hypertension: Yes Hx COPD: Yes Hx Diabetes: Yes Hx Neurological Problems: Yes - mild dementia Hx Dementia: Yes Review of Systems All Other Systems: negative except mentioned in HPI Physical Exam Vital Signs Date Time Temp Pulse Resp B/P (MAP) Pulse Ox O2 Delivery O2 Flow Rate FiO2 12/31/17 15:44 97.5 53 22 124/64 99 Nasal Cannula 4.0 97.5 Sp02 EP Interpretation: reviewed, normal General Appearance: no apparent distress, alert, GCS 15, non-toxic Head: normocephalic, atraumatic Eyes: bilateral eye normal inspection, bilateral eye PERRL ENT: hearing grossly normal, normal pharynx, no angioedema, normal voice Neck: full range of motion, supple/symm/no masses Respiratory: chest non-tender, crackles, speaking full sentences Cardiovascular #1: regular rate, rhythm, no edema Cardiovascular #2: 2+ carotid (R), 2+ carotid (L), 2+ radial (R), 2+ radial (L) , 2+ dorsalis pedis (R), 2+ dorsalis pedis (L) Gastrointestinal: normal bowel sounds, non tender, soft, non-distended, no guarding, no rebound Rectal: deferred Genitourinary: normal inspection, no CVA tenderness Musculoskeletal: back normal, gait/station normal, normal range of motion, non- tender Neurologic: alert, oriented x3, responsive, motor strength/tone normal, sensory intact, speech normal Psychiatric: judgement/insight normal, memory normal, mood/affect normal, no suicidal/homicidal ideation Reflexes: 3+ bicep (R), 3+ bicep (L), 3+ tricep (R), 3+ tricep (L), 3+ knee (R) , 3+ knee (L) Skin: normal color, no rash, warm/dry, well hydrated Lymphatic: no adenopathy Medical Decision Making Diagnostic Impression: Primary Impression: CHF exacerbation Qualified Codes: I50.9 - Heart failure, unspecified ER Course Hospital Course 82-year-old female presents ED complaining of shortness of breath, Differential diagnoses include: TN/unstable angina, contusion, muscle strain, PTX, rib fracture Clinical course Patient placed on stretcher. on panel monitor. After initial history and physical I ordered labs, EKG, chest x-ray, IVFs labs reviewed- minimal leukocytosis, hemoglobin/hematocrit stable, electrolytes ok, troponins negative, BNP greater than 2000 EKG - sinus bradycardia no acute ischemic changes interpreted by me Chest x-ray- CHF/PNA Antibiotics given. Lasix given. Because of insurance patient will be transferred I. I feel this is a highly complex case requiring extensive working including EKG/Rhythm strip, Xray/CT/US, Blood/urine lab work, repeat exams while in ED, and administration of strong opiates/narcotics for pain control, admission to hospital or close patient follow up. Diagnosis - CHF exacerbation Transferred in serious condition Labs Test 12/31/17 16:45 White Blood Count 11.8 K/UL (4.8-10.8) Red Blood Count 4.09 M/UL (4.20-5.40) Hemoglobin 11.8 G/DL (12.0-16.0) Hematocrit 35.8 % (37.0-47.0) Mean Corpuscular Volume 88 FL (80-99) Mean Corpuscular Hemoglobin 28.9 PG (27.0-31.0) Mean Corpuscular Hemoglobin Concent 32.9 G/DL (32.0-36.0) Red Cell Distribution Width 14.3 % (11.6-14.8) Platelet Count 221 K/UL (150-450) Mean Platelet Volume 6.8 FL (6.5-10.1) Neutrophils (%) (Auto) 70.1 % (45.0-75.0) Lymphocytes (%) (Auto) 17.8 % (20.0-45.0) Monocytes (%) (Auto) 6.5 % (1.0-10.0) Eosinophils (%) (Auto) 4.3 % (0.0-3.0) Basophils (%) (Auto) 1.3 % (0.0-2.0) Urine Color Pale yellow Urine Appearance Clear Urine pH 6.5 (4.5-8.0) Urine Specific [place] 1.010 (1.005-1.035) Urine Protein Negative (NEGATIVE) Urine Glucose (UA) Negative (NEGATIVE) Urine Ketones Negative (NEGATIVE) Urine Occult Blood 2+ (NEGATIVE) Urine Nitrite Negative (NEGATIVE) Urine Bilirubin Negative (NEGATIVE) Urine Urobilinogen Normal MG/DL (0.0-1.0) Urine Leukocyte Esterase Negative (NEGATIVE) Urine RBC 2-4 /HPF (0 - 2) Urine WBC 0-2 /HPF (0 - 2) Urine Squamous Epithelial Cells Occasional /LPF Urine Bacteria None /HPF (NONE) Sodium Level 135 MMOL/L (136-145) Potassium Level 4.1 MMOL/L (3.5-5.1) Chloride Level 95 MMOL/L (98-107) Carbon Dioxide Level 38 MMOL/L (21-32) Anion Gap 2 mmol/L (5-15) Blood Urea Nitrogen 19 mg/dL (7-18) Creatinine 1.2 MG/DL (0.55-1.30) Estimat Glomerular Filtration Rate mL/min (>60) Glucose Level 173 MG/DL (74-106) Lactic Acid Level 0.90 mmol/L (0.4-2.0) Calcium Level 9.3 MG/DL (8.5-10.1) Total Bilirubin 0.7 MG/DL (0.2-1.0) Aspartate Amino Transf (AST/SGOT) 24 U/L (15-37) Alanine Aminotransferase (ALT/SGPT) 24 U/L (12-78) Alkaline Phosphatase 55 U/L (46-116) Total Creatine Kinase 74 U/L (26-308) Creatine Kinase MB 1.4 NG/ML (0.0-3.6) Creatine Kinase MB Relative Index 1.8 Troponin I 0.005 ng/mL (0.000-0.056) Pro-B-Type Natriuretic Peptide 2880 pg/mL (0-125) Total Protein 7.8 G/DL (6.4-8.2) Albumin 3.2 G/DL (3.4-5.0) Globulin 4.6 g/dL Albumin/Globulin Ratio 0.7 (1.0-2.7) EKG Diagnostic Results Rate: bradycardiac Rhythm: NSR ST Segments: no acute changes ASA given to the pt in ED: No Rhythm Strip Diag. Results EP Interpretation: yes Rhythm: NSR, no PVC's, no ectopy Chest X-Ray Diagnostic Results Chest X-Ray Diagnostic Results : Chest X-Ray Ordered: Yes # of Views/Limited/Complete: 1 View Indication: Shortness of Breath EP Interpretation: Yes Interpretation: no pneumothorax, other - chf/?PNA Impression: Other - chf/PNA Electronically Signed by: Electronically signed by Fred Burns MD Last Vital Signs Date Time Temp Pulse Resp B/P (MAP) Pulse Ox O2 Delivery O2 Flow Rate FiO2 12/31/17 19:13 97.5 54 15 130/68 100 Nasal Cannula 4.0 97.5 Status: improved Disposition: XFER SHT-TRM HOSP Condition: Serious Referrals: NON PHYSICIAN (PCP) Fred Burns MD Dec 31, 2017 19:19
[2017-12-31 20:44] VITALS: BP 109/67
[2017-12-31 20:48] VITALS: BP 109/67
--- NOTE | 2018-01-01 09:54 | Diagnostic Imaging Report ---
Indication: Shortness of breath Technique: One view of the chest Comparison: 12/24/2017 Findings: Bilateral diffuse interstitial and airspace opacities are again demonstrated and appear unchanged. The heart is enlarged. Impression: Unchanged, over 7 days, findings as above.
== END 2017-12-31 20:48 | disposition short-term general hospital (02) ==
LOC: EDBD 15:54 → EMR 17:21
DX: I11.0 Hypertensive heart disease with heart failure (principal); I50.9 Heart failure, unspecified; J44.9 Chronic obstructive pulmonary disease, unspecified; E11.9 Type 2 diabetes mellitus without complications; F03.90 Unspecified dementia, unspecified severity, without behavioral disturbance, psychotic disturbance, mood disturbance, and anxiety
CPT/HCPCS: 36415; 71045; 80053; 81003; 82550; 82553; 83605; 83880; 84484; 85025; 87040; 93005; 96361; 96365; 96374; 99285; J1940; J1956

== ENCOUNTER 2018-01-04 15:15 | Emergency (ER) | payer OTHER ==
[~2018-01-04] VITALS: Ht 157.5 cm; Wt 90.7 kg
[2018-01-04] MEDS ORDERED: Sodium Chloride 500ML 500 ML IV ONE ×2 (15:44→18:00)
[2018-01-04 16:07] VITALS: BP 112/68
[2018-01-04 16:22] LABS: BASOPHILS % (AUTO) 1.4 % (0.0-2.0); EOSINOPHILS % (AUTO) 3.1 % (0.0-3.0); HEMOGLOBIN 12.2 G/DL (12.0-16.0); LYMPHOCYTES % (AUTO) 10.5 % (20.0-45.0); MEAN CORPUSCULAR VOLUME 87 FL (80-99); MONOCYTES % (AUTO) 6.9 % (1.0-10.0); NEUTROPHILS % (AUTO) 78.1 % (45.0-75.0); PLATELET COUNT 225 K/UL (150-450); RED BLOOD COUNT 4.25 M/UL (4.20-5.40); RED CELL DISTRIBUTION WIDTH 14.2 % (11.6-14.8); WHITE BLOOD COUNT 11.8 K/UL (4.8-10.8)
--- NOTE | 2018-01-04 16:33 | Emergency Room Report ---
History of Present Illness General Chief Complaint: Generalized Weakness Source: Patient, Family Member, EMS Present Illness HPI 82-year-old female presents ED for evaluation. Brought in by EMS for weakness. Started yesterday. States she feels like she cannot stand. Has poor appetite. Is on home oxygen. Denies any chest pain or shortness of breath. Denies fevers or chills. Was recently admitted here and transferred to another hospital. Discharged yesterday. No other aggravating relieving factors. Denies any other associated symptoms Allergies: Coded Allergies: No Known Allergies (Verified , 05/26/11) Patient History Past Medical History: DM, HTN, COPD, dementia Pertinent Family History: none Social History: Denies: smoking, alcohol use, drug use Now: No Immunizations: UTD Reviewed Nursing Documentation: PMH: Agreed; PSxH: Agreed Nursing Documentation-PMH Hx Cardiac Problems: Yes Hx Hypertension: Yes Hx COPD: Yes Hx Diabetes: Yes Hx Dialysis: No - RF Hx Neurological Problems: Yes - mild dementia Hx Dementia: Yes Review of Systems All Other Systems: negative except mentioned in HPI Physical Exam Vital Signs Date Time Temp Pulse Resp B/P (MAP) Pulse Ox O2 Delivery O2 Flow Rate FiO2 01/04/18 14:56 98.8 98 15 98.8 01/04/18 16:07 112/68 95 Nasal Cannula 3.0 Sp02 EP Interpretation: reviewed, normal General Appearance: no apparent distress, alert, GCS 15, non-toxic Head: normocephalic, atraumatic Eyes: bilateral eye normal inspection, bilateral eye PERRL ENT: hearing grossly normal, normal pharynx, no angioedema, normal voice Neck: full range of motion, supple/symm/no masses Respiratory: chest non-tender, lungs clear, normal breath sounds, speaking full sentences Cardiovascular #1: regular rate, rhythm, no edema Cardiovascular #2: 2+ carotid (R), 2+ carotid (L), 2+ radial (R), 2+ radial (L) , 2+ dorsalis pedis (R), 2+ dorsalis pedis (L) Gastrointestinal: normal bowel sounds, non tender, soft, non-distended, no guarding, no rebound Rectal: deferred Genitourinary: normal inspection, no CVA tenderness Musculoskeletal: back normal, gait/station normal, normal range of motion, non- tender Neurologic: alert, oriented x3, responsive, motor strength/tone normal, sensory intact, speech normal Psychiatric: judgement/insight normal, memory normal, mood/affect normal, no suicidal/homicidal ideation Reflexes: 3+ bicep (R), 3+ bicep (L), 3+ tricep (R), 3+ tricep (L), 3+ knee (R) , 3+ knee (L) Skin: normal color, no rash, warm/dry, well hydrated Lymphatic: no adenopathy Medical Decision Making Diagnostic Impression: Primary Impression: Episode of generalized weakness Additional Impressions: Renal insufficiency CHF exacerbation Qualified Codes: I50.9 - Heart failure, unspecified ER Course Hospital Course 82-year-old female presents ED complaining of weakness, poor appetite. Discharged yesterday from hospital Differential diagnoses include: VT/unstable angina, contusion, muscle strain, PTX, rib fracture Clinical course Patient placed on stretcher. on residential monitor. After initial history and physical I ordered labs, EKG, chest x-ray, IVFs labs reviewed- minimal leukocytosis, hemoglobin/hematocrit stable, BUN/ creatinine elevated, troponins 0.037, BNP greater than 3000 EKG - afib, no acute ischemic changes interpreted by me Chest x-ray- pulmonary congestion, unchanged from prior CXRs Patient was seen by myself on 12/24. Admitted for CHF exacerbation and subsequently transferred because of insurance. Patient was discharged on 12/30 and came back here on 12/31 she felt short of breath. Workup showed that her CHF was getting worse and I admitted her and she was subsequently transferred Patient family states she was discharged yesterday. Her BUN/creatinine is getting worse. Her BNP is rising. Initial troponins were lower. Given aspirin. Because of insurance patient will be transferred I. I feel this is a highly complex case requiring extensive working including EKG/Rhythm strip, Xray/CT/US, Blood/urine lab work, repeat exams while in ED, and administration of strong opiates/narcotics for pain control, admission to hospital or close patient follow up. Diagnosis - CHF exacerbation, renal insufficiency, episode of generalized weakness transferred in serious condition Labs Test 01/04/18 16:00 01/04/18 16:26 White Blood Count 11.8 K/UL (4.8-10.8) Red Blood Count 4.25 M/UL (4.20-5.40) Hemoglobin 12.2 G/DL (12.0-16.0) Hematocrit 37.0 % (37.0-47.0) Mean Corpuscular Volume 87 FL (80-99) Mean Corpuscular Hemoglobin 28.8 PG (27.0-31.0) Mean Corpuscular Hemoglobin Concent 33.0 G/DL (32.0-36.0) Red Cell Distribution Width 14.2 % (11.6-14.8) Platelet Count 225 K/UL (150-450) Mean Platelet Volume 6.3 FL (6.5-10.1) Neutrophils (%) (Auto) 78.1 % (45.0-75.0) Lymphocytes (%) (Auto) 10.5 % (20.0-45.0) Monocytes (%) (Auto) 6.9 % (1.0-10.0) Eosinophils (%) (Auto) 3.1 % (0.0-3.0) Basophils (%) (Auto) 1.4 % (0.0-2.0) Sodium Level 135 MMOL/L (136-145) Potassium Level 3.8 MMOL/L (3.5-5.1) Chloride Level 93 MMOL/L (98-107) Carbon Dioxide Level 39 MMOL/L (21-32) Anion Gap 4 mmol/L (5-15) Blood Urea Nitrogen 58 mg/dL (7-18) Creatinine 2.0 MG/DL (0.55-1.30) Estimat Glomerular Filtration Rate mL/min (>60) Glucose Level 287 MG/DL (74-106) Lactic Acid Level 0.90 mmol/L (0.4-2.0) Calcium Level 9.5 MG/DL (8.5-10.1) Total Bilirubin 0.8 MG/DL (0.2-1.0) Aspartate Amino Transf (AST/SGOT) 30 U/L (15-37) Alanine Aminotransferase (ALT/SGPT) 20 U/L (12-78) Alkaline Phosphatase 51 U/L (46-116) Total Creatine Kinase 199 U/L (26-308) Creatine Kinase MB 1.7 NG/ML (0.0-3.6) Creatine Kinase MB Relative Index 0.8 Troponin I 0.037 ng/mL (0.000-0.056) Pro-B-Type Natriuretic Peptide 3443 pg/mL (0-125) Total Protein 7.9 G/DL (6.4-8.2) Albumin 3.2 G/DL (3.4-5.0) Globulin 4.7 g/dL Albumin/Globulin Ratio 0.7 (1.0-2.7) Urine Color Pale yellow Urine Appearance Clear Urine pH 5 (4.5-8.0) Urine Specific [place] 1.020 (1.005-1.035) Urine Protein 2+ (NEGATIVE) Urine Glucose (UA) Negative (NEGATIVE) Urine Ketones Negative (NEGATIVE) Urine Occult Blood 5+ (NEGATIVE) Urine Nitrite Negative (NEGATIVE) Urine Bilirubin Negative (NEGATIVE) Urine Urobilinogen Normal MG/DL (0.0-1.0) Urine Leukocyte Esterase 2+ (NEGATIVE) Urine RBC Tntc /HPF (0 - 2) Urine WBC 15-20 /HPF (0 - 2) Urine Squamous Epithelial Cells Few /LPF (NONE/OCC) Urine Bacteria Few /HPF (NONE) EKG Diagnostic Results Rate: normal Rhythm: other - afib ST Segments: no acute changes ASA given to the pt in ED: No Rhythm Strip Diag. Results EP Interpretation: yes Rhythm: no PVC's, no ectopy Chest X-Ray Diagnostic Results Chest X-Ray Diagnostic Results : Chest X-Ray Ordered: Yes # of Views/Limited/Complete: 1 View Indication: Other - weakness EP Interpretation: Yes Interpretation: no pneumothorax, other - cardiomegaly/chf Impression: Other - cardiomegaly/chf Electronically Signed by: Electronically signed by Fred Burns MD Last Vital Signs Date Time Temp Pulse Resp B/P (MAP) Pulse Ox O2 Delivery O2 Flow Rate FiO2 01/04/18 16:07 92 15 112/68 95 Nasal Cannula 3.0 01/04/18 14:56 98.8 98.8 Status: improved Disposition: XFER SHT-TRM HOSP Condition: Serious Fred Burns MD Jan 04, 2018 16:33
[2018-01-04 16:37] LABS: ANION GAP 4 mmol/L (5-15); BLOOD UREA NITROGEN 58 mg/dL (7-18); CALCIUM 9.5 MG/DL (8.5-10.1); CARBON DIOXIDE 39 MMOL/L (21-32); CHLORIDE 93 MMOL/L (98-107); POTASSIUM 3.8 MMOL/L (3.5-5.1); SODIUM 135 MMOL/L (136-145)
[2018-01-04 16:52] LABS: ALANINE AMINOTRANSFERASE 20 U/L (12-78); ALBUMIN 3.2 G/DL (3.4-5.0); ALBUMIN/GLOBULIN RATIO 0.7 (1.0-2.7); ALKALINE PHOSPHATASE 51 U/L (46-116); ASPARTATE AMINO TRANSFERASE 30 U/L (15-37); BILIRUBIN,TOTAL 0.8 MG/DL (0.2-1.0); CKMB 1.7 NG/ML (0.0-3.6); CREATINE KINASE 199 U/L (26-308)
[2018-01-04 17:11] LABS: APPEARANCE,URINE CLEAR; BILIRUBIN, URINE NEGATIVE (NEGATIVE); COLOR,URINE PALE YELLOW; GLUCOSE, URINE (UA) NEGATIVE (NEGATIVE); KETONES,URINE NEGATIVE (NEGATIVE); LEUKOCYTE ESTERASE ,URINE 2+ (NEGATIVE); NITRITE,URINE NEGATIVE (NEGATIVE); PH,URINE 5 (4.5-8.0); PROTEIN,URINE 2+ (NEGATIVE); UROBILINOGEN,URINE NORMAL MG/DL (0.0-1.0)
[2018-01-04 18:35] VITALS: BP 127/68
[2018-01-04 18:42] VITALS: BP 127/68
--- NOTE | 2018-01-05 11:03 | Diagnostic Imaging Report ---
Indication: Chest pain Technique: One view of the chest Comparison: 12/31/2017 Findings: The heart is enlarged. There is bilateral interstitial and airspace disease again demonstrated, may be slightly improved allowing for differences in exposure technique Impression: Equivocally slightly improved, still extensive bilateral interstitial and airspace infiltrates versus edema, over 4 days This agrees with the preliminary interpretation provided overnight by [facility] teleradiology service.
--- NOTE | 2018-01-08 18:50 | Cardiology Report ---
APPROVED REPORT EKG Measurement Heart [id number] Atrial fibrillation Abnormal ECG
== END 2018-01-04 18:43 | disposition short-term general hospital (02) ==
LOC: EDBD 15:15 → EDBEDREQ 15:48 → EMR 15:50 → EDBEDREQSVC 17:31 → EMR 18:43
DX: R53.1 Weakness (principal); N28.9 Disorder of kidney and ureter, unspecified; I10 Essential (primary) hypertension; E11.9 Type 2 diabetes mellitus without complications; J44.9 Chronic obstructive pulmonary disease, unspecified; F03.90 Unspecified dementia, unspecified severity, without behavioral disturbance, psychotic disturbance, mood disturbance, and anxiety
CPT/HCPCS: 36415; 71045; 80053; 81003; 82550; 82553; 83605; 83880; 84484; 85025; 87086; 93005; 96360; 99283; J7040

== ENCOUNTER 2018-07-13 13:38 | Emergency (ER) | payer MEDICARE, OTHER ==
[~2018-07-13] VITALS: Ht 152.4 cm; Wt 99.8 kg
[2018-07-13 13:50] VITALS: BP 125/88
[2018-07-13] MEDS ORDERED: MAPAP325 MG/10. PO (13:55)
[2018-07-13] MEDS ORDERED: LOSARTAN POTAS100 MG ORAL (13:55)
[2018-07-13] MEDS ORDERED: TRAMADOL HCL100 M2 ORAL (13:55)
[2018-07-13] MEDS ORDERED: ELIQUIS2.5 MG PO (13:55)
--- NOTE | 2018-07-13 14:36 | NUR ---
ED Nurse Note: Bp =135/99 prior to administration lasix
[2018-07-13 14:50] VITALS: BP 144/93
--- NOTE | 2018-07-13 14:50 | NUR ---
ED Nurse Note: pt o2sat = 76%-80% on RA, pt states she is sob, airway intact, RR=18, EKG done, MD notified regarding pt's condition. Pt started on o2=4L via NC, pt's family states she uses o2 at home from 3L=5L via NC for comfort. Will continue to monitor. Pt states breathing feels better and o2 helps, o2 sat after 4L at 100%
[2018-07-13 14:53] LABS: EOSINOPHILS % (AUTO) 7.9 % (0.0-3.0); HEMATOCRIT 37.2 % (37.0-47.0); HEMOGLOBIN 12.3 G/DL (12.0-16.0); LYMPHOCYTES % (AUTO) 29.7 % (20.0-45.0); MEAN CORPUSCULAR VOLUME 88 FL (80-99); NEUTROPHILS % (AUTO) 54.4 % (45.0-75.0); PLATELET COUNT 219 K/UL (150-450); RED BLOOD COUNT 4.24 M/UL (4.20-5.40); RED CELL DISTRIBUTION WIDTH 16.1 % (11.6-14.8); WHITE BLOOD COUNT 8.1 K/UL (4.8-10.8)
[2018-07-13 15:08] LABS: ANION GAP 9 mmol/L (5-15); BLOOD UREA NITROGEN 31 mg/dL (7-18); CALCIUM 9.2 MG/DL (8.5-10.1); CARBON DIOXIDE 28 MMOL/L (21-32); CHLORIDE 98 MMOL/L (98-107); CREATININE 1.3 MG/DL (0.55-1.30); POTASSIUM 3.9 MMOL/L (3.5-5.1); SODIUM 135 MMOL/L (136-145)
[2018-07-13 15:21] LABS: ALANINE AMINOTRANSFERASE 29 U/L (12-78); ALBUMIN 3.5 G/DL (3.4-5.0); ALBUMIN/GLOBULIN RATIO 0.7 (1.0-2.7); ALKALINE PHOSPHATASE 67 U/L (46-116); ASPARTATE AMINO TRANSFERASE 28 U/L (15-37); BILIRUBIN,TOTAL 0.5 MG/DL (0.2-1.0); CKMB 1.9 NG/ML (0.0-3.6); CREATINE KINASE 83 U/L (26-308)
[2018-07-13] MEDS ORDERED: dilTIAZem HCl 25mg/5ml Inj IVP ONE (15:45)
--- NOTE | 2018-07-13 15:45 | Emergency Room Report ---
History of Present Illness General Chief Complaint: Chest Pain Source: Patient, Medical Record Present Illness HPI Patient presents with complaints of shortness of breath Ongoing for the past several days Patient has history of CHF and atrial fibrillation Denies any chest pain at this time denies any vomiting or diarrhea Shortness of breath is worse with ambulation and laying flat Patient does take water pills at home Denies any change in medications recently Allergies: Coded Allergies: No Known Allergies (Verified , 07/13/18) Patient History Past Medical History: see triage record Pertinent Family History: none Reviewed Nursing Documentation: PMH: Agreed; PSxH: Agreed Nursing Documentation-PMH Past Medical History: No History, Except For Hx Cardiac Problems: Yes Hx Hypertension: Yes Hx COPD: Yes Hx Diabetes: Yes Hx Dialysis: No - RF Hx Neurological Problems: Yes - mild dementia Hx Dementia: Yes Review of Systems All Other Systems: negative except mentioned in HPI Physical Exam Vital Signs Date Time Temp Pulse Resp B/P (MAP) Pulse Ox O2 Delivery O2 Flow Rate FiO2 07/13/18 13:48 98.1 127 16 125/88 76 Room Air Sp02 EP Interpretation: reviewed, normal General Appearance: no apparent distress Head: normocephalic, atraumatic Eyes: bilateral eye PERRL, bilateral eye EOMI ENT: hearing grossly normal, normal pharynx, TMs + canals normal, uvula midline Neck: full range of motion, supple, no meningismus, no bony tend Respiratory: lungs clear, normal breath sounds, no rhonchi, no respiratory distress, no retraction, no accessory muscle use Cardiovascular #1: normal peripheral pulses, no gallop, no JVD, no murmur, tachycardia, irregularly irregular Gastrointestinal: normal bowel sounds, non tender, soft, no mass, no organomegaly, non-distended, no guarding, no hernia, no pulsatile mass, no rebound Genitourinary: no CVA tenderness Musculoskeletal: normal inspection Neurologic: oriented x3, responsive, market news reporter III-XII nml as tested, motor strength/ tone normal, sensory intact Psychiatric: mood/affect normal Skin: warm/dry, palpation normal, other - Edema bilaterally Lymphatic: normal inspection, no adenopathy Medical Decision Making Diagnostic Impression: Primary Impression: CHF exacerbation Additional Impression: Atrial fibrillation ER Course Patient is a fairly complex patient with multiple differential to consideration including but not limited to cardiac cardiopulmonary and vascular emergencies Patient shows clinical signs of fluid overload Lasix is provided on arrival patient's EKG also shows atrial fibrillation X-ray shows CHF blood work also confirms this finding patient is provided with further medication continues to improve Requires inpatient care Secondary to insurance purposes being requested for transfer Labs Test 07/13/18 14:30 White Blood Count 8.1 K/UL (4.8-10.8) Red Blood Count 4.24 M/UL (4.20-5.40) Hemoglobin 12.3 G/DL (12.0-16.0) Hematocrit 37.2 % (37.0-47.0) Mean Corpuscular Volume 88 FL (80-99) Mean Corpuscular Hemoglobin 29.1 PG (27.0-31.0) Mean Corpuscular Hemoglobin Concent 33.1 G/DL (32.0-36.0) Red Cell Distribution Width 16.1 % (11.6-14.8) Platelet Count 219 K/UL (150-450) Mean Platelet Volume 7.4 FL (6.5-10.1) Neutrophils (%) (Auto) 54.4 % (45.0-75.0) Lymphocytes (%) (Auto) 29.7 % (20.0-45.0) Monocytes (%) (Auto) 6.0 % (1.0-10.0) Eosinophils (%) (Auto) 7.9 % (0.0-3.0) Basophils (%) (Auto) 2.0 % (0.0-2.0) Sodium Level 135 MMOL/L (136-145) Potassium Level 3.9 MMOL/L (3.5-5.1) Chloride Level 98 MMOL/L (98-107) Carbon Dioxide Level 28 MMOL/L (21-32) Anion Gap 9 mmol/L (5-15) Blood Urea Nitrogen 31 mg/dL (7-18) Creatinine 1.3 MG/DL (0.55-1.30) Estimat Glomerular Filtration Rate mL/min (>60) Glucose Level 179 MG/DL (74-106) Calcium Level 9.2 MG/DL (8.5-10.1) Total Bilirubin 0.5 MG/DL (0.2-1.0) Aspartate Amino Transf (AST/SGOT) 28 U/L (15-37) Alanine Aminotransferase (ALT/SGPT) 29 U/L (12-78) Alkaline Phosphatase 67 U/L (46-116) Total Creatine Kinase 83 U/L (26-308) Creatine Kinase MB 1.9 NG/ML (0.0-3.6) Creatine Kinase MB Relative Index 2.2 Troponin I 0.014 ng/mL (0.000-0.056) Pro-B-Type Natriuretic Peptide 4182 pg/mL (0-125) Total Protein 8.3 G/DL (6.4-8.2) Albumin 3.5 G/DL (3.4-5.0) Globulin 4.8 g/dL Albumin/Globulin Ratio 0.7 (1.0-2.7) Lipase 137 U/L (73-393) Rhythm Strip Diag. Results EP Interpretation: yes Rate: 110 Rhythm: no PVC's, no ectopy, other - Irregularly irregular Chest X-Ray Diagnostic Results Chest X-Ray Diagnostic Results : Chest X-Ray Ordered: Yes # of Views/Limited/Complete: 1 View Indication: Shortness of Breath EP Interpretation: Yes Interpretation: no consolidation, no pneumothorax, other - Cardiomegaly, pulmonary congestion Impression: Other - Pulmonary congestion Electronically Signed by: Consuelo Byrne DO Last Vital Signs Date Time Temp Pulse Resp B/P (MAP) Pulse Ox O2 Delivery O2 Flow Rate FiO2 07/13/18 13:50 127 16 Room Air 07/13/18 13:50 98.1 125/88 76 Status: improved Disposition: XFER SHT-TRM HOSP Condition: Improved Referrals: NON PHYSICIAN (PCP) Consuelo Byrne DO Jul 13, 2018 15:44
[2018-07-13 15:50] VITALS: BP 127/101
--- NOTE | 2018-07-13 15:55 | Diagnostic Imaging Report ---
Indication: Shortness of breath Technique: One view of the chest Comparison: 01/04/2018 Findings: There is bilateral interstitial and airspace disease again demonstrated, extending similar to the previous exam. The heart is borderline enlarged. The pleural spaces are grossly clear Impression: Bilateral interstitial and airspace disease. Most likely represents recurrent congestive heart failure. Correlate with clinical findings
--- NOTE | 2018-07-13 16:16 | NUR ---
ED Nurse Note: attempted calling [facility] for report multiple times, unable to reach nurse at this time, goes to voice mail, will try again. ambulance at the bedside.
--- NOTE | 2018-07-13 16:17 | NUR ---
ED Nurse Note: ambulance at the bedside for transport, gave report to LIAM Fofana and endorsed care, pt resting in bed, afib on quality assurance monitor chassis, vss, iv intact and patent, resp even and unlabored, 02 100% on 4L via NC.
--- NOTE | 2018-07-13 16:27 | NUR ---
ED Nurse Note: report given to RN Roby at [facility]. Pt AA&ox3, gcs=15, pt's son verbalized understanding and agrees with plan prior to departure, Afib on equipment monitor phototypesetting, VSS, o2 100% with NC 4L via NC, airway intact.
[2018-07-13 16:41] VITALS: BP 125/64
--- NOTE | 2018-07-13 16:43 | NUR ---
ED Nurse Note: pt is transferred to [facility].
--- NOTE | 2018-07-13 16:43 | NUR ---
ED Nurse Note: belongings sent wth patient and patient's son.
== END 2018-07-13 16:44 | disposition short-term general hospital (02) ==
LOC: EDBEDREQ 14:08 → EMR 14:25
DX: I11.0 Hypertensive heart disease with heart failure (principal); I50.9 Heart failure, unspecified; J44.9 Chronic obstructive pulmonary disease, unspecified; E11.9 Type 2 diabetes mellitus without complications; F03.90 Unspecified dementia, unspecified severity, without behavioral disturbance, psychotic disturbance, mood disturbance, and anxiety; I48.91 Unspecified atrial fibrillation; I51.7 Cardiomegaly
CPT/HCPCS: 36415; 71045; 80053; 82550; 82553; 83690; 83880; 84484; 85025; 87040; 93005; 96374; 96375; 99285; J1940